=== PATIENT | female | born 1955 | race Caucasian/White ===

== ENCOUNTER 2024-08-25 09:19 | Inpatient (IN) ==
--- NOTE | 2024-07-09 09:57 | PAT Medication Instructions ---
Medication Instructions Date of Service July 09, 2024 Home Medications atorvastatin 80 mg tablet (Lipitor) 80 mg PO HS brimonidine 0.15 % eye drops (Alphagan P) 1 drp OPR Q12H brimonidine 0.15 %-dorzolamide 2 % (PF) eye drops 1 drp ophthalmic (eye) Q12H carvedilol 6.25 mg tablet 6.25 mg PO HS cholecalciferol (vitamin D3) 100 mcg (4,000 unit) capsule 4,000 unit PO QPM clonidine HCl 0.1 mg tablet 0.1 mg PO HS clopidogrel 75 mg tablet (Plavix) 75 mg PO QAM furosemide 40 mg tablet (Lasix) 40 mg PO QAM hydralazine 25 mg tablet 25 mg PO HS insulin lispro 100 unit/mL subcutaneous pen (Humalog KwikPen (U-100) Insulin) 35 unit subcut BID lactulose 20 gram oral packet 20 g PO BID PRN nitroglycerin 0.4 mg sublingual tablet 0.4 mg sublingual UD PRN nitroglycerin 0.4 mg/hr transdermal 24 hour patch 1 patch transdermal DAILY sevelamer carbonate 800 mg tablet 2,400 mg PO TID vitamin B complex 1 cap PO HS Continue as directed nitroglycerin 0.4 mg sublingual tablet 0.4 mg sublingual UD PRN(if needed) ASK your prescriber and surgeon clopidogrel 75 mg tablet (Plavix) 75 mg PO QAM nitroglycerin 0.4 mg/hr transdermal 24 hour patch 1 patch transdermal DAILY (do NOT apply on or near surgical site) sevelamer carbonate 800 mg tablet 2,400 mg PO TID DO NOT take the morning of surgery furosemide 40 mg tablet (Lasix) 40 mg PO QAM insulin lispro 100 unit/mL subcutaneous pen (Humalog KwikPen (U-100) Insulin) 35 unit subcut BID lactulose 20 gram oral packet 20 g PO BID PRN Take morning of surgery With a small sip of water, OTHERWISE NOTHING TO EAT OR DRINK AFTER MIDNIGHT: brimonidine 0.15 % eye drops (Alphagan P) 1 drp OPR Q12H brimonidine 0.15 %-dorzolamide 2 % (PF) eye drops 1 drp ophthalmic (eye) Q12H Take evening before surgery atorvastatin 80 mg tablet (Lipitor) 80 mg PO HS brimonidine 0.15 % eye drops (Alphagan P) 1 drp OPR Q12H brimonidine 0.15 %-dorzolamide 2 % (PF) eye drops 1 drp ophthalmic (eye) Q12H carvedilol 6.25 mg tablet 6.25 mg PO HS cholecalciferol (vitamin D3) 100 mcg (4,000 unit) capsule 4,000 unit PO QPM clonidine HCl 0.1 mg tablet 0.1 mg PO HS hydralazine 25 mg tablet 25 mg PO HS insulin lispro 100 unit/mL subcutaneous pen (Humalog KwikPen (U-100) Insulin) 35 unit subcut BID lactulose 20 gram oral packet 20 g PO BID PRN(if needed) vitamin B complex 1 cap PO HS Other Notes If you have any questions please call us at [phone] or [phone] or [phone] or [phone]
--- NOTE | 2024-07-16 09:45 | Anesthesiology Consultation ---
Date of Service July 16, 2024 Assessment & Plan (1) Encounter for pre-operative examination: - check BSG and BMP STAT am DOS. Fluid orders to assigned anesthesiologist review of BMP DOS. - awaiting: -surgeon's office response regarding surgeon ordered coags and type and screen. -surgeon ordered UA which patient plans to complete at PCP office, [facility]. -surgeon ordered PCP clearance 07/22/24. -surgeon ordered cardiology clearance, date TBD per patient. Optimization form and PAT testing to be faxed to Dr. Fernandez's office regarding needed carotid imaging and detection of systolic murmur. -A1c to be done at dialysis. anesthesia consideration: "shaking" of arms when used to assist standing up. Patient and surgeon's office report plan for cervical spine MRI at some point. Case discussed in detail with Dr. Gautam who advised will not require cervical spine imaging prior to surgery from anesthesia standpoint. To assigned anesthesiologist if patient will need glidescope or different approach to intubation. - ESRD on HD: M, W, F. BMP ordered for DOS. - Carotid bruits were noted on exam vs new systolic murmur radiation. Patient denied dizziness, lightheadedness, extremity weakness, visual changes or headaches. She will need carotid imaging prior to surgery per detailed discussion with Dr. Gautam, will defer if needs echo to cardiology. - surgeon's office was made aware of all above. - limb restrictions: left arm, right upper arm. Patient states BP can be done in right lower arm and IV draws can be in right hand or feet. - nephrology clearance 07/13/24: "...preoperative clearance for lumbar decompression and instrumented fusion surgery at L4-L5...clinically stable from a renal standpoint...giant cell arteritis, unable to afford Actemra and declined assistance...avoidance of hemodynamic instability intraoperatively..." Chart Review Chart Review: Pending: Refer to Additional Notes / Consult section and Patient seen in Pre Admission Testing Teaching & Discussion Pre-Anesthesia Teaching/Discussion Notes: Instructed NPO after midnight before surgery, except medications with 15 cc of water. Medication instructions provided according to the PAT guidelines. History Surgery Operation Date: 07/28/24 11:30 Proposed Procedures p L3-S1 Decompression and Fusion - Dexter Hansen DO Height/Weight Height: 5 ft 2 in Weight: 87.5 kg Allergies Allergy/AdvReac Type Severity Reaction Status Date / Time acetaminophen Allergy Unknown Unknown Verified 07/08/24 13:33 hydrocodone Allergy Unknown Unknown Verified 07/08/24 13:33 naproxen Allergy Unknown Unknown Verified 07/08/24 13:33 Medications Home Medications Medication Instructions Recorded Confirmed Last Taken atorvastatin 80 mg tablet (Lipitor) 80 mg PO HS 07/08/24 07/08/24 Unknown brimonidine 0.15 % eye drops 1 drp OPR Q12H 07/08/24 07/08/24 Unknown (Alphagan P) brimonidine 0.15 %-dorzolamide 2 % 1 drp ophthalmic (eye) Q12H 07/08/24 07/08/24 Unknown (PF) eye drops carvedilol 6.25 mg tablet 6.25 mg PO HS 07/08/24 07/08/24 Unknown cholecalciferol (vitamin D3) 100 4,000 unit PO QPM 07/08/24 07/08/24 Unknown mcg (4,000 unit) capsule clonidine HCl 0.1 mg tablet 0.1 mg PO HS 07/08/24 07/08/24 Unknown clopidogrel 75 mg tablet (Plavix) 75 mg PO QAM 07/08/24 07/08/24 Unknown furosemide 40 mg tablet (Lasix) 40 mg PO QAM 07/08/24 07/08/24 Unknown hydralazine 25 mg tablet 25 mg PO 07/08/24 07/08/24 Unknown insulin lispro 100 unit/mL 35 unit subcut BID 07/08/24 07/08/24 Unknown subcutaneous pen (Humalog KwikPen (U-100) Insulin) lactulose 20 gram oral packet 20 g PO BID PRN Constipation 07/08/24 07/08/24 Unknown nitroglycerin 0.4 mg sublingual 0.4 mg sublingual UD PRN Chest Pain 07/08/24 07/08/24 Unknown tablet nitroglycerin 0.4 mg/hr 1 patch transdermal DAILY 07/08/24 07/08/24 Unknown transdermal 24 hour patch sevelamer carbonate 800 mg tablet 2,400 mg PO TID 07/08/24 07/08/24 Unknown vitamin B complex 1 cap PO HS 07/08/24 07/08/24 Unknown Past Medical History Medical History (Updated 07/16/24 @ 13:20 by Ludy Prajapati PA-C) Arthritis AV (arteriovenous fistula) (2016) left CAD (coronary artery disease) CABG x 2 2006 and 1 stent in 2021 Diabetes mellitus IDDM Difficult intravenous access reports having IV's placed in feet in past ESRD (end stage renal disease) on dialysis HD at [facility] in [place]- - follows with dr. glez, neph in [place] Hemodialysis patient x 3 years, [facility] in [place]- - follows with dr. glez, neph in [place] History of blood transfusion (~1979) miscarriage History of right breast cancer (2021) lumpectomy and xrt Hx of Clostridium difficile infection (2020) treated at [facility] Hx of colonic polyps Hypertension controlled, stable per pt Limb alert care status left- AV Fistula right- right breast lumpectomy and lymph node removal- states ok for BP on lower right arm and wants IV right hand or foot Mitral regurgitation mild Potential difficult intubation on pre-intubation airway assessment limited cervical spine ROM, cervical spine MRI planned by Dr. Hansen/not yet scheduled Spinal stenosis Tremor intermittent upper extremities when using arms to assist stand up-patient states Dr. Hansen plans to order cervical MRI for these symptoms. Denies change or worsening since seeing his clinic. Denies neck pain. Patient denies h/o stroke, seizures, heart failure, or blood clots/DVTs. Exercise / Class Metabolic Activity III < 4 Walking/Shop/Light housework (denies chest discomfort or shortness of breath with usual activities) Past Surgical History Surgical History History of bilateral carpal tunnel release History of lumpectomy of right breast (2021) can only use lower right arm for bp Hx of CABG (2006) [place]- cabg x 2- follows with cardio dr. 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") Hx of heart artery stent (2021) x1- [place]- follows with juan Hx of hysterectomy S/P arteriovenous (AV) fistula creation left arm Past Anesthesia History No Hx of Anesthesia Complications and No Family Hx of Anesthesia Complications History of PONV No Hx of PONV and No Hx of Motion Sickness Social History Smoking Status: Former smoker Do You Dip or Chew Tobacco: No Smoking End Date: 2006 Hx Alcohol Use: No Hx Substance Use: No substance use type: does not use Review of Systems Patient denies chest pain, shortness of breath, dyspnea on exertion, snoring, witnessed apneas, reflux, fever, chills, cough, wheezing, or palpitations. Physical Exam Vital Signs Vitals BP 108/60 right lower arm manual P 66 TEMP 98.0 SP02 100% on RA RESP 18 Physical Patient resting comfortably in chair in no acute distress, alert and oriented, responding appropriately throughout visit Limited cervical extension range of motion without pain TMD 3.5 finger breadths Mallampati Score 3 Dentition: edentulous Lungs: normal respiratory effort. Good air movement, clear throughout to auscultation, no adventitious breath sounds Cardiac: regular rate and rhythm, 2/6 systolic murmur, no gallops or rubs Carotid arteries: bruits bilat Testing Laboratory Results 07/07/24 WBC: 5.1 H/H: 10 PLATELETS: 134,000 SODIUM: 136 POTASSIUM: 4.1 CHLORIDE: 101 CO2: 22 BUN: 60 CREATININE: 9.9 GLUCOSE: 169 Ca: 8.4 Alk phos: 80 ALT: 13 AST: 22 Albumin: 2.8 Patient reported at [facility] that pre-op labs were done at dialysis, however coags and type and screen were not done. Lab results were received after patient left as when we called we were told the results were still pending. A1c was not on surgeon ordered/patient denied recent A1c. She was given a physical order to take to dialysis for next lab draw to include an A1c. She was unable to void and will have UA done at another site. Electrocardiogram Date: 07/16/24 NSR, rate 63 bpm Prolonged QT Chest X-Ray Date: 07/16/24 There is prior CABG. There is moderate cardiomegaly with mild pulmonary vascular congestion. No consolidation or pleural effusion. IMPRESSION: Mild CHF.
[~2024-08-25 09:19] MED LIST: ACETAMINOPHEN 500 MG TAB PO SCH; CeleBREX 200 MG CAP PO SCH
[2024-08-25] MEDS ORDERED: Nursing to Pharmacy Communication SCH (10:15)
[2024-08-25] MEDS: ACETAMINOPHEN 500 MG TAB PO SCH (10:23)
[2024-08-25] MEDS: GABAPENTIN 300 MG CAP PO SCH ×2 (10:24→22:58)
[2024-08-25 10:35] LABS: Anion Gap 8.0 (3-11); Blood Urea Nitrogen 29.0 mg/dl (6-23); Calcium 8.9 mg/dl (8.6-10.3); Carbon Dioxide 29.0 mmol/L (21-32); Chloride 100.0 mmol/L (98-107); Creatinine Clr Calc Pharmacy 9.6 ml/min; Glucose 160.0 mg/dl (70-99(Fasting)); Potassium 4.2 mmol/L (3.5-5.1); Sodium 137.0 mmol/L (136-145)
[2024-08-25] MEDS: SODIUM CHLORIDE 0.9% 500 ML IV SCH (10:44)
[2024-08-25] MEDS: LR 60ML/HR IV SCH ×2 (10:45→22:58)
--- NOTE | 2024-08-25 10:56 | Anesthesiology Consultation ---
Date of Service August 25, 2024 Assessment & Plan (1) Encounter for pre-operative examination: Plan S/p dialysis yesterday. K+ 4.2. MOderate carotid stenosis on left, mild on right. Overall risk acceptable for surgery, however did discuss risk of cardiac, pulmonary and cerebral events being higher due to underlying illnesses. Chart Review Chart Review: Acceptable Risk for Surgery and Pending: Refer to Additional Notes / Consult section Consults Requested none ASA ASA3 Proposed Anesthesia Anesthesia Type: General Risk / Benefits Reviewed With: PT / POA / Parent / Guardian, Accepts Plan and Informed Consent Obtained History Surgery Operation Date: 08/25/24 11:45 Proposed Procedures p L3-S1 Decompression and Fusion, Spinal Cord Monitoring - Dexter Hansen, Height/Weight Height: 5 ft 2 in Weight: 83.2 kg Allergies Allergy/AdvReac Type Severity Reaction Status Date / Time hydrocodone Allergy Unknown Nausea Verified 08/25/24 10:12 naproxen Allergy Unknown Nausea Verified 08/25/24 10:12 gabapentin AdvReac Intermediate Nausea Verified 08/25/24 10:12 Medications Home Medications Medication Instructions Recorded Confirmed Last Taken atorvastatin 80 mg tablet (Lipitor) 80 mg PO 07/08/24 08/25/24 08/24/24 21:00 brimonidine 0.15 % eye drops 1 drp OPR Q12H 07/08/24 08/25/24 08/23/24 21:00 (Alphagan P) brimonidine 0.15 %-dorzolamide 2 % 1 drp ophthalmic (eye) Q12H 07/08/24 08/25/24 08/24/24 21:00 (PF) eye drops carvedilol 6.25 mg tablet 6.25 mg PO 07/08/24 08/25/24 08/24/24 21:00 cholecalciferol (vitamin D3) 100 4,000 unit PO QPM 07/08/24 08/25/24 08/18/24 mcg (4,000 unit) capsule clonidine HCl 0.1 mg tablet 0.1 mg PO 07/08/24 08/25/24 08/24/24 21:00 clopidogrel 75 mg tablet (Plavix) 75 mg PO QA 07/08/24 08/25/24 08/23/24 12:00 furosemide 40 mg tablet (Lasix) 40 mg PO QA 07/08/24 08/25/24 08/18/24 hydralazine 25 mg tablet 25 mg PO HS 07/08/24 08/25/24 08/24/24 21:00 insulin lispro 100 unit/mL 35 unit subcut BID 07/08/24 08/25/24 08/24/24 07:00 subcutaneous pen (Humalog KwikPen (U-100) Insulin) lactulose 20 gram oral packet 20 g PO BID PRN Constipation 07/08/24 08/25/24 Unknown nitroglycerin 0.4 mg sublingual 0.4 mg sublingual UD PRN Chest Pain 07/08/24 08/25/24 Unknown tablet nitroglycerin 0.4 mg/hr 1 patch transdermal DAILY 07/08/24 08/25/24 08/25/24 04:00 transdermal 24 hour patch sevelamer carbonate 800 mg tablet 2,400 mg PO TID 07/08/24 08/25/24 08/18/24 vitamin B complex 1 cap PO HS 07/08/24 08/25/24 08/18/24 Active Medications Generic Name Dose Route Start Last Admin Trade Name Freq PRN Reason Stop Dose Admin Acetaminophen 1,000 mg 08/25/24 06:00 08/25/24 10:23 Acetaminophen 500 Mg Tab PO 08/25/24 18:00 1,000 mg PREOP MICKY Administration Gabapentin 300 mg 08/25/24 06:00 08/25/24 10:24 Gabapentin 300 Mg Cap PO 09/24/24 05:59 Not Given PREOP MICKY Lactated Ringer's 1,000 mls @ 60 mls/hr 08/25/24 06:00 08/25/24 10:45 Lr IV 08/25/24 22:39 Not Given .[id number] MICKY Sodium Chloride 500 mls @ 15 mls/hr 08/25/24 10:45 08/25/24 10:44 Nss IV 08/26/24 10:44 15 mls/hr .Q24H MICKY Administration Miscellaneous Information 1 each 08/24/24 13:30 08/25/24 10:24 Allergy Noted To Ordered Medication N/A 09/23/24 13:29 Not Given QSHIFT MICKY NPO Date Last Intake of Fluids: 08/25/24 Time Last Intake of Fluids: 07:00 Date Last Intake of Solids: 08/24/24 Time Last Intake of Solids: 12:00 Past Medical History Medical History Aortic stenosis mild Potential difficult intubation on pre-intubation airway assessment limited cervical spine ROM, cervical spine MRI planned by Dr. Hansen/not yet scheduled Mitral regurgitation mild-moderate History of blood transfusion (~1979) miscarriage Tremor intermittent upper extremities when using arms to assist stand up-patient states Dr. Hansen plans to order cervical MRI for these symptoms. Denies change or worsening since seeing his clinic. Denies neck pain. CAD (coronary artery disease) CABG x 2 2006 and 1 stent in 2021 Hx of Clostridium difficile infection (2020) treated at [facility] Difficult intravenous access reports having IV's placed in feet in past Arthritis Spinal stenosis ESRD (end stage renal disease) on dialysis HD at [facility] in [place]- - follows with dr. glez, neph in [place] Limb alert care status left- AV Fistula right- right breast lumpectomy and lymph node removal- states ok for BP on lower right arm and wants IV right hand or foot History of right breast cancer (2021) lumpectomy and xrt Hypertension controlled, stable per pt Diabetes mellitus IDDM Hx of colonic polyps Hemodialysis patient x 3 years, [facility] in [facility] - follows with dr. 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 martinez- ~ (1 month) Past Anesthesia History No Hx of Anesthesia Complications and No Family Hx of Anesthesia Complications History of PONV No Hx of PONV and No Hx of Motion Sickness Social History Smoking Status: Former smoker Do You Dip or Chew Tobacco: No Smoking End Date: 2006 Hx Alcohol Use: No Hx Substance Use: No substance use type: does not use Physical Exam Vital Signs Last Vital Signs Temp 36.8 C 08/25/24 09:53 Pulse 63 08/25/24 09:53 Resp 20 08/25/24 09:53 BP 163/55 H 08/25/24 09:53 Pulse Ox 98 08/25/24 09:53 O2 Del Method Room Air 08/25/24 09:53 Constitutional + obese; no acute distress ENMT Mouth: + dentures Mallampati Class: II Neck normal visual inspection Respiratory normal respiratory effort Auscultation: lungs clear to auscultation bilaterally Cardiovascular Rate/Rhythm: regular rate and regular rhythm Neurologic moves all extremities Psychiatric Orientation: alert and oriented x 3 Testing Laboratory Results 08/25/24 10:00 Blood Type O Positive 08/25/24 10:00 Antibody Screen NEGATIVE 08/25/24 10:00 08/25/24 09:43 POC Glucose 147 H Electrocardiogram Date: 07/16/24 NSR, rate 63 bpm Prolonged QT Chest X-Ray Date: 07/16/24 There is prior CABG. There is moderate cardiomegaly with mild pulmonary vascular congestion. No consolidation or pleural effusion. IMPRESSION: Mild CHF. Echocardiogram Date: 07/23/24 EF: 50 Valvular Disease: + (mild) and + MR (mod)
[2024-08-25] MEDS ORDERED: HYDROmorphone INJ 2 MG/ML SYR/VIAL IV PRN (11:02)
[2024-08-25] MEDS ORDERED: ATROPINE SULFATE 0.1 MG/ML 10ML SYR IV PRN (11:02)
[2024-08-25] MEDS ORDERED: LIDOCAINE 2% 2 ML VIAL/AMP(20MG/ML) INFIL ONE (11:14)
[2024-08-25] MEDS ORDERED: PROPOFOL IV EMULSION 10 MG/ML 20 ML VIAL IV ONE (11:14)
[2024-08-25] MEDS ORDERED: ROCURONIUM BROMIDE 10 MG/ML 5 ML VIAL IV ONE ×2 (11:14→13:56)
[2024-08-25] MEDS ORDERED: PHENYLEPHRINE HCL 10 MG/ML VIAL ONE (11:14)
[2024-08-25] MEDS ORDERED: ONDANSETRON INJ 2 MG/ML 2 ML VIAL ONE (11:14)
[2024-08-25] MEDS ORDERED: DEXAMETHASONE SOD INJ 4 MG/ML VIAL ONE (11:14)
--- NOTE | 2024-08-25 12:09 | History & Physical Report ---
Date of Service August 25, 2024 Assessment & Plan (1) Two-level lumbosacral spondylosis with radiculopathy: Plan: L3-S1 decompression fusion History of Present Illness Chief Complaint: Back and bilateral leg pain Primary Care Provider: NO PCP This is a 68-year-old female that presents with chronic persistent back and bilateral leg pain with weakness. After failing course of nonoperative care she is here for surgical intervention. Allergies Allergy/AdvReac Type Severity Reaction Status Date / Time hydrocodone Allergy Unknown Nausea Verified 08/25/24 10:12 naproxen Allergy Unknown Nausea Verified 08/25/24 10:12 gabapentin AdvReac Intermediate Nausea Verified 08/25/24 10:12 Home Medications Medication Instructions Recorded Confirmed Type atorvastatin 80 mg tablet (Lipitor) 80 mg PO HS 07/08/24 08/25/24 History brimonidine 0.15 % eye drops 1 drp OPR Q12H 07/08/24 08/25/24 History (Alphagan P) brimonidine 0.15 %-dorzolamide 2 % 1 drp ophthalmic (eye) Q12H 07/08/24 08/25/24 History (PF) eye drops carvedilol 6.25 mg tablet 6.25 mg PO HS 07/08/24 08/25/24 History cholecalciferol (vitamin D3) 100 4,000 unit PO QPM 07/08/24 08/25/24 History mcg (4,000 unit) capsule clonidine HCl 0.1 mg tablet 0.1 mg PO HS 07/08/24 08/25/24 History clopidogrel 75 mg tablet (Plavix) 75 mg PO QAM 07/08/24 08/25/24 History furosemide 40 mg tablet (Lasix) 40 mg PO QAM 07/08/24 08/25/24 History hydralazine 25 mg tablet 25 mg PO HS 07/08/24 08/25/24 History insulin lispro 100 unit/mL 35 unit subcut BID 07/08/24 08/25/24 History subcutaneous pen (Humalog KwikPen (U-100) Insulin) lactulose 20 gram oral packet 20 g PO BID PRN Constipation 07/08/24 08/25/24 History nitroglycerin 0.4 mg sublingual 0.4 mg sublingual UD PRN Chest Pain 07/08/24 08/25/24 History tablet nitroglycerin 0.4 mg/hr 1 patch transdermal DAILY 07/08/24 08/25/24 History transdermal 24 hour patch sevelamer carbonate 800 mg tablet 2,400 mg PO TID 07/08/24 08/25/24 History vitamin B complex 1 cap PO HS 07/08/24 08/25/24 History Past Med/Surg History Problem List (Updated 08/25/24 @ 12:09 by Dexter Hansen, ) Two-level lumbosacral spondylosis with radiculopathy Medical History (Updated 08/25/24 @ 12:09 by Dexter Hansen, ) Aortic stenosis mild Potential difficult intubation on pre-intubation airway assessment limited cervical spine ROM, cervical spine MRI planned by Dr. Hansen/not yet scheduled Mitral regurgitation mild-moderate History of blood transfusion (~1979) miscarriage Tremor intermittent upper extremities when using arms to assist stand up-patient states Dr. Hansen plans to order cervical MRI for these symptoms. Denies change or worsening since seeing his clinic. Denies neck pain. CAD (coronary artery disease) CABG x 2 2006 and 1 stent in 2021 Hx of Clostridium difficile infection (2020) treated at [facility] Difficult intravenous access reports having IV's placed in feet in past Arthritis Spinal stenosis ESRD (end stage renal disease) on dialysis HD at [facility] in [place]- - follows with dr. glez neph in [place] Limb alert care status left- AV Fistula right- right breast lumpectomy and lymph node removal- states ok for BP on lower right arm and wants IV right hand or foot History of right breast cancer (2021) lumpectomy and xrt Hypertension controlled, stable per pt Diabetes mellitus IDDM Hx of colonic polyps Hemodialysis patient x 3 years, [facility] in [place]- - follows with dr. 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 martinez- ~ (1 month) Social History Smoking Status: Former smoker Tobacco Type: Cigarettes Smoking End Date: 2006; Second Hand Exposure: No; Do You Dip or Chew Tobacco: No; Tobacco Cessation Education Requested by Patient: No Hx Alcohol Use: No Hx Substance Use: No Preferred Language: [place] Communication Ability: Effective Systems Security Analyst Required: No Beliefs That Will Affect Care: None Current Living Situation: Spouse Other Information That Helps Us Care for You: No Feels Safe at Home: Yes Safety Concerns: Feels Safe At This Time Assistive Devices: Glasses Physical Exam Physical Exam: Patient is alert and oriented Heart regular rhythm Lungs clear Results & Data Results & Data Vital Signs (Past 12 Hours) Vital Signs Temp Pulse Resp BP Pulse Ox O2 Del Method 08/25/24 09:53 36.8 C 63 20 163/55 H 98 Room Air
--- NOTE | 2024-08-25 12:09 | History & Physical Bridge Note ---
Date of Service August 25, 2024 History & Physical Bridge Note I have examined the patient, reviewed the History & Physical and in the interval since the performance of the History & Physical I have noted the following changes of clinical significance: no changes noted
[2024-08-25] MEDS ORDERED: SUCCINYLCHOLINE CHLORIDE 20 MG/ML 10 ML VIAL IV ONE (13:04)
[2024-08-25] MEDS: BUPIVACAINE/EPINEPHRINE 0.25% 1:200,000 30 ML VIAL ONE (14:16)
[2024-08-25] MEDS: SURGICEL ABSORB HEMOSTAT 2IN X 14IN TOP ONE (14:18)
[2024-08-25] MEDS ORDERED: ALBUMIN HUMAN 5% 12.5 GM/250 ML VIAL IV ONE (14:39)
[2024-08-25] MEDS ORDERED: NEOSTIGMINE METHYLSULFATE 1 MG/ML 10ML VIAL ONE (15:07)
[2024-08-25] MEDS ORDERED: GLYCOPYRROLATE 0.2 MG/ML VIAL ONE (15:07)
[2024-08-25] MEDS: FLOSEAL HEMOSTATIC MATRIX 10ML TOP ONE (15:11)
[2024-08-25] MEDS: ceFAZolin 330 MG/ML 1 GM VIAL ONE (15:11)
--- NOTE | 2024-08-25 15:16 | Fluoroscopy Report ---
FL lumbar spine 2-3V CLINICAL HISTORY: L3-S1 DECOMPRESSION AND FUSION COMPARISON STUDY: None FLUOROSCOPY TIME: 24 seconds FLUOROSCOPY IMAGES: 3 EXPOSURE DOSE: 17 mGy FINDINGS: Fluoroscopy was provided for lumbar metallic fusion. IMPRESSION: Intraoperative fluoroscopy. ACT 112: Negative or not required by law. Electronically signed by: West Baeza M.D. 08/25/2024 3:15 PM
--- NOTE | 2024-08-25 15:27 | Operative Report ---
Post Operative Report Pre & Post Diagnosis Operation Date: 08/25/24 11:45 Pre-Op Diagnosis: #1 lumbar spondylosis with radiculopathy. #2 lumbar spondylolisthesis with radiculopathy. #3 lumbar spinal stenosis Postop diagnosis: Same I identified the patient and participated in the time-out.: Yes Procedure Operation Date: 08/25/24 11:45 Actual Procedures #1 lumbar decompression with bilateral medial facetectomies and foraminotomies L2-L3, L3-L4 L4-5. #2 posterior spinal fusion L3-L5. #3 placement posterior instrumentation L3-L5. #4 interbody fusion L3-L4 L4-L5. 5 placement Spira 13 x 26 mm at L3-L4 and 12 x 26 mm at L4-L5. #6 placement of locally harvested morselized autograft in the posterior gutters. #7 placement infuse collagen sponge, with Koros in the posterior lateral gutters and os design interbody space. #8 application of versa wrap of the exposed dura. Surgeon Dexter Hansen, Email Production Specialist Adalgisa Callahan Estimated Blood Loss 400 Findings Consistent with Post-Op Diagnosis Specimens None Indications This is a 68-year-old female presents publish diagnosis after failing course of nonoperative care she is here for surgical invention. Description of Procedure Patient was met with identified informed consent obtained. Patient was then taken to the operative suite underwent intubation placed in a prone position on the Jef table on top of the Roshan frame. All bony prominences well-padded eyes inspected to ensure no external pressure placed upon them. This point the lumbar spine was prepped and draped in normal sterile fashion. Sharp dissection with the assistance of Bovie cautery was performed down to and exposing the lamina and transverse processes of L3-L4-L5 bilaterally. From a caudal cephalad fashion complete laminectomy of L4 was performed including bilateral medial facetectomies and foraminotomies addressing severe spinal stenosis. This followed by complete laminectomy of L3 with bilateral medial facetectomies and foraminotomies addressing severe neural compression and lastly partial laminectomy of L2 with subarticular decompression to address all stenosis. Pedicle screws then placed at L3-L4-L5 bilaterally with assistance of fluoroscopy in the process anahy placed. By way of transforaminal approach on the left complete discectomy of L4-L5 was performed endplates curetted to subcortical bleeding bone and a 12 x 26 mm spiral cage tapped in position. Then proceeded to L3-L4 and by way of transforaminal approach on the left complete discectomy was performed endplates guided to subcortically bone and a 13 x 26 mm spiral cage tapped into position. All cages were packed with os design bone graft. The rods were then compressed locked in final position bilaterally. The transverse processes of L3-L4-L5 burred to subcortical the bone. Infuse collagen sponge, with Koros and local autograft placed in the posterior gutters. Versa wrap placed of exposed dura. 15 round SHIRA drain inserted. The incision was then closed with 1 Vicryl the fascia 2-0 Vicryl subcutaneously and 4 Monocryl for final skin closure. Steri-Strips sterile dressing placed. Patient waken taken to PACU in stable condition. Please note Adalgisa Callahan was present at the entire procedure involved in patient positioning complex portion of the surgery and final skin closure. Im ordering 10 grams of Collagen Powder (HCPCS A6010 Primary Dressing) and 10 bordered super absorbent (HCPCS A6196 Secondary Dressing) to treat an incision wound that was caused by a spine procedure. The incision is approximately 2 cm(W) x 2 cm(L) down to the spinal column and epidural space 2 cm (D) in size and is a full thickness wound showing no signs of infection. Collagen comes in 1 gram packets so 10 packets were ordered. Given the size of the wound, with moderate exudate I chose to order a 10 day supply. The patient will be provided instructions for proper application of the collagen wound kit. The patient will be asked to apply the collagen powder daily and then cover it with sterile dressings dispensed. Collagen was selected as I expect the collagen to attract monocytes and fibroblasts, act as a sacrificial substrate for MMPs, and ultimately proved a matrix for tissue and vessel growth. The collagen will act as a primary dressing in this scenario. It is medically necessary for proper healing of these wounds to improve bioavailability and contact with each wound surface, this is also to help prevent infection of wounds and promote healing ultimately leading to a better healing outcome and limit the risk of infection. I attest to the content of the Intraoperative Record and any orders documented therein. Any exceptions are noted below.
[2024-08-25] MEDS: ONDANSETRON INJ 2 MG/ML 2 ML VIAL IV PRN (15:50)
[2024-08-25] MEDS: HYDROmorphone INJ 1 MG/ML SYRINGE IV PRN (15:58)
[2024-08-25] MEDS: LABETALOL HCL IV 5 MG/ML 20ML IV STA (16:35)
[2024-08-25] MEDS: LABETALOL HCL IV 5 MG/ML 20ML IV ONE (16:43)
--- NOTE | 2024-08-25 16:46 | Anesthesiology Progress Note ---
Date of Service August 25, 2024 Anesthesia Post Procedure Vital Signs Vital Signs: Temp Pulse Pulse Pulse Resp BP BP 08/25/24 16:35 71 219/62 H 08/25/24 16:15 64 14 185/56 H 08/25/24 16:05 77 18 212/72 H 08/25/24 15:55 85 23 229/69 H 08/25/24 15:45 79 14 162/54 H 08/25/24 15:36 36 C L 65 14 179/54 H 08/25/24 09:53 36.8 C 63 20 163/55 H BP Pulse Ox O2 Del Method O2 Flow Rate 08/25/24 16:35 08/25/24 16:15 180/37 H 99 Nasal Cannula 5 08/25/24 16:05 217/58 H 99 Nasal Cannula 5 08/25/24 15:55 229/56 H 100 Nasal Cannula 5 08/25/24 15:45 172/43 H 100 Oxymask 10 08/25/24 15:36 100 Oxymask 10 08/25/24 09:53 98 Room Air Pain Intensity Bilateral Lower Back: Pain Intensity: 8 Back: Pain Intensity: 4 Transfer of Care Handoff Completed per policy Notes Mental Status: alert / awake / arousable and participated in evaluation Patient Amnestic to Procedure: Yes Nausea / Vomiting: adequately controlled Pain: adequately controlled Airway Patency, RR, SpO2: stable & adequate BP & HR: stable & adequate Hydration State: stable & adequate Anesthetic Complications: no major complications apparent and Pt Satisfied with anesthetic care
[2024-08-25] MEDS ORDERED: PROMETHAZINE 12.5 MG/50.5 ML BAG IV PRN (17:47)
[2024-08-25] MEDS ORDERED: LORazepam 0.5 MG TAB PO PRN (17:47)
[2024-08-25] MEDS ORDERED: ACETAMINOPHEN 1,000 MG/100 ML VIAL IV PRN (17:47)
[2024-08-25] MEDS ORDERED: ONDANSETRON 4 MG OD TAB PO PRN (17:47)
[2024-08-25] MEDS ORDERED: PHARMACY GLYCEMIC MGMT CONSULT PRN (17:47)
[2024-08-25] MEDS ORDERED: ONDANSETRON INJ 2 MG/ML 2 ML VIAL IV PRN (17:47)
[2024-08-25] MEDS ORDERED: FAMOTIDINE 20 MG TAB PO PRN (17:47)
[2024-08-25] MEDS ORDERED: NALOXONE HCL 0.4 MG/1 ML VIAL/CARP IV PRN (17:47)
[2024-08-25] MEDS ORDERED: DO NOT ADMINISTER FLU VACCINE PRN (17:47)
[2024-08-25] MEDS ORDERED: ALUMINUM/MAGNESIUM SUSP 30 ML UDC PO PRN (17:47)
[2024-08-25] MEDS ORDERED: MAGNESIUM HYDROXIDE SUSP 30 ML UDC PO PRN (17:47)
[2024-08-25] MEDS ORDERED: DO NOT ADMINISTER PNEUMOCOCCAL VACCINE PRN (17:47)
[2024-08-25] MEDS ORDERED: METOCLOPRAMIDE HCL INJ 5 MG/ML 2 ML VIAL IV PRN (17:47)
[2024-08-25] MEDS ORDERED: NITROGLYCERIN SL 0.4 MG/TAB TAB SL PRN (17:47)
[2024-08-25] MEDS ORDERED: HYDROmorphone INJ 1 MG/ML SYRINGE IV PRN (17:47)
[2024-08-25] MEDS ORDERED: SOD PHOSPHATE/SOD BIPHOSPHATE ENEMA 132 ML BTL PR PRN (17:47)
[2024-08-25] MEDS ORDERED: GLUCAGON FOR INJ 1 MG VIAL SQ PRN (18:19)
[2024-08-25] MEDS ORDERED: GLUCOSE 10 TAB/TUBE PO PRN (18:19)
[2024-08-25] MEDS ORDERED: DEXTROSE 50% 50 ML SYRINGE IV PRN (18:19)
[2024-08-25] MEDS ORDERED: GLUCOSE 40% GEL 15 GM TUBE PO PRN (18:19)
[2024-08-25] MEDS ORDERED: CARBOHYDRATES FOR HYPOGLYCEMIA PO PRN (18:19)
--- NOTE | 2024-08-25 18:32 | Consultation ---
Date of Consultation August 25, 2024 Assessment & Plan (1) Two-level lumbosacral spondylosis with radiculopathy: (2) CAD (coronary artery disease): (3) ESRD (end stage renal disease) on dialysis: (4) Diabetes mellitus: Plan This is a 68-year-old female who has a significant medical history of ESRD on HD Saturday, CAD s/p CABG, T2DM, HTN, hx of breast cancer in remission and cirrhosis who presents for elective lumbar procedure by Dr. Hansen. # 2 level lumbar sacral spondylosis with radiculopathy status post lumbar decompression fusion L3-S1, POD #0 EBL 400 mL pain/wound management per Ortho encourage incentive spirometry monitor hemoglobin, preop 10.2, likely chronic anemia in setting of end-stage renal disease Pt wheel chair bound prior to procedure, since May 10, Goal is to walk again, may need rehab #ESRD on HD MWF consult nephrology for HD needs, last tx was yesterday 08/[address] Calvin, Renal in [place] for HD needs #CAD hx of CABG in 2006, hx of LAD SCOTTIE x [address] Fernandez in [place] on ASA, Statin, Plavix, Lipitor, coreg ASA, Plavix currently on hold - will need to discuss with Dr. Hansen in a.m. if able to at least resume ASA #HTN chronic, stable on hydralazine, coreg, lasix, clonidine and nitropatch monitor volume status #T2DM pt on higher doses of insulin at home, last a1c 7.7 on 03/03/24, will check a1c in a.m. pharmacy consulted for glycemic management #B/L Carotid artery stenosis: continue asa, plavix, cards following #DVT ppx: per primary FULL CODE PCP: Dr. Simone Hawkins, [facility] Dispo: per primary Pt was seen and examined in collaboration with Dr. Zuluaga, please see addendum Thank you for this consultation. We will follow the patient with you during their hospital stay. You can reach a member of the [facility] Hospitalist Team 03/09 via hospitalist role on tiger text. I spent a total of 56 minutes coordinating, documenting and providing care for this patient excluding time spent in the performance of separately billed services or time spent by another provider/QHP. Supervising Physician Co-Signing Physician Notes Attending addendum: The patient was seen and examined in medical floor in presence of the family members She has been feeling much better and denies any significant symptoms except nausea Denies any chest pain, palpitation or shortness of breath No abdominal pain and denies any numbness and or tingling involving the extremities On examination Sitting on the bed without any acute distress Looked pale but hemodynamically stable Chestclear to auscultate bilaterally HeartS1-S2, regular with 2/6 ESM over precordium Abdomenbenign Extremitiestrace edema bilaterally CNSalert, awake and oriented x 3 Heart labs and imaging studies noted Has had echo and EKG prior to surgery which were unremarkable Status post L3-L5 decompression and fusion on 08/25/2024 Significant medical history of end-stage renal disease on hemodialysis, diabetes and other medical conditions as mentioned above Will get nephrology involved for dialysis to continue Sliding scale insulin coverage and other medications will be continued for chronic conditions as mentioned above Will monitor her labs while in the hospital Agree with assessment plan as outlined above by Yamilex Toledo PA-C and take the full responsibility of care in the hospital Dr Qing Zuluaga History of Present Illness Requesting Physician: Dr. Hansen Reason for Consultation: Post op medical management Attending Physician: Dexter Hansen, History of Present Illness This is a 68-year-old female who has a significant medical history of ESRD on HD Saturday, CAD s/p CABG, T2DM, HTN and cirrhosis who presents for elective lumbar procedure by Dr. Hansen. History obtained from patient, multiple family members at bedside as well as chart review. at bedside states that patient has been wheelchair-bound since May 10, 2024 for which they sought care with Dr. Hansen. Patient was found to have lumbar spinal stenosis and underwent L3-S1 decompression and fusion. She has most of her care in [place], [place]. She underwent CABG in 2006 and is on ASA and Plavix. She has had 2 LAD stents placed in 2021. She goes to HD at [facility] and has been on for 3 years. She still makes urine. Her last session was yesterday and she completed a full session. She still makes urine. Post operatively she has some incisional pain. Pain currently 6/10. Denies radicular sx. Denies f/c/s, chest pain, sob, vomiting or diarrhea. She currently feels nauseated. Allergies Allergy/AdvReac Type Severity Reaction Status Date / Time hydrocodone Allergy Unknown Nausea Verified 08/25/24 10:12 naproxen Allergy Unknown Nausea Verified 08/25/24 10:12 gabapentin AdvReac Intermediate Nausea Verified 08/25/24 10:12 Home Medications Medication Instructions Recorded Confirmed Type atorvastatin 80 mg tablet (Lipitor) 80 mg PO HS 07/08/24 08/25/24 History brimonidine 0.15 % eye drops 1 drp OPR Q12H 07/08/24 08/25/24 History (Alphagan P) brimonidine 0.15 %-dorzolamide 2 % 1 drp ophthalmic (eye) Q12H 07/08/24 08/25/24 History (PF) eye drops carvedilol 6.25 mg tablet 6.25 mg PO HS 07/08/24 08/25/24 History cholecalciferol (vitamin D3) 100 4,000 unit PO QPM 07/08/24 08/25/24 History mcg (4,000 unit) capsule clonidine HCl 0.1 mg tablet 0.1 mg PO HS 07/08/24 08/25/24 History clopidogrel 75 mg tablet (Plavix) 75 mg PO QAM 07/08/24 08/25/24 History furosemide 40 mg tablet (Lasix) 40 mg PO QAM 07/08/24 08/25/24 History hydralazine 25 mg tablet 25 mg PO HS 07/08/24 08/25/24 History insulin lispro 100 unit/mL 35 unit subcut BID 07/08/24 08/25/24 History subcutaneous pen (Humalog KwikPen (U-100) Insulin) lactulose 20 gram oral packet 20 g PO BID PRN Constipation 07/08/24 08/25/24 History nitroglycerin 0.4 mg sublingual 0.4 mg sublingual UD PRN Chest Pain 07/08/24 08/25/24 History tablet nitroglycerin 0.4 mg/hr 1 patch transdermal DAILY 07/08/24 08/25/24 History transdermal 24 hour patch sevelamer carbonate 800 mg tablet 2,400 mg PO TID 07/08/24 08/25/24 History vitamin B complex 1 cap PO HS 07/08/24 08/25/24 History aspirin 81 mg tablet 81 mg PO DAILY 08/25/24 08/25/24 History Patient History Medical History Aortic stenosis mild Potential difficult intubation on pre-intubation airway assessment limited cervical spine ROM, cervical spine MRI planned by Dr. Hansen/not yet scheduled Mitral regurgitation mild-moderate History of blood transfusion (~1979) miscarriage Tremor intermittent upper extremities when using arms to assist stand up-patient states Dr. Hansen plans to order cervical MRI for these symptoms. Denies change or worsening since seeing his clinic. Denies neck pain. CAD (coronary artery disease) CABG x 2 2006 and 1 stent in 2021 Hx of Clostridium difficile infection (2020) treated at [facility] Difficult intravenous access reports having IV's placed in feet in past Arthritis Spinal stenosis ESRD (end stage renal disease) on dialysis HD at Renal in [place]- - follows with dr. calvin, neph in [place] Limb alert care status left- AV Fistula right- right breast lumpectomy and lymph node removal- states ok for BP on lower right arm and wants IV right hand or foot History of right breast cancer (2021) lumpectomy and xrt Hypertension controlled, stable per pt Diabetes mellitus IDDM Hx of colonic polyps Hemodialysis patient x 3 years, Renal in [facility] - follows with dr. 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 fernandez- ~ (1 month) Social History Smoking Status: Former smoker Tobacco Type: Cigarettes Smoking End Date: 2006; Second Hand Exposure: No; Do You Dip or Chew Tobacco: No; Tobacco Cessation Education Requested by Patient: No Hx Alcohol Use: No Hx Substance Use: No Preferred Language: Afghan Communication Ability: Effective Vegetable Ii Farmworker Required: No Beliefs That Will Affect Care: None Current Living Situation: Spouse Other Information That Helps Us Care for You: No Feels Safe at Home: Yes Safety Concerns: Feels Safe At This Time Assistive Devices: Glasses Review of Systems Review of Systems: All systems reviewed & are unremarkable except as noted in HPI & below Physical Exam Physical Exam: Gen: WD/WN, NAD, A&O x3. drowsy. HEENT: Normocephalic, atraumatic, conjunctivae moist, sclerae anicteric, mucous membranes moist. Lung: Clear to Auscultation bilaterally, no wheezes/rales/rhonchi Heart: Regular rate, regular rhythm Abdomen: Soft, NT, ND +BS x 4 Extremities: No edema, LUE fistula Skin: Warm, no rash, negative turgor. : +marley cath draining yellow urine Results & Data Vital Signs (Past 12 Hours) Vital Signs Temp Pulse Pulse Pulse Resp BP BP 08/25/24 18:29 35.4 C L 57 L 14 130/68 08/25/24 18:01 35.7 C L 60 136/69 08/25/24 17:38 36.4 C L 61 16 181/65 H 08/25/24 17:30 08/25/24 17:05 36.5 C 55 L 15 166/46 H 08/25/24 16:55 60 16 164/47 H 08/25/24 16:45 53 L 16 160/46 H 08/25/24 16:35 71 15 154/45 H 08/25/24 16:35 71 219/62 H 08/25/24 16:25 68 16 198/55 H 08/25/24 16:15 64 14 185/56 H 08/25/24 16:05 77 18 212/72 H 08/25/24 15:55 85 23 229/69 H 08/25/24 15:45 79 14 162/54 H 08/25/24 15:36 36 C L 65 14 179/54 H 08/25/24 09:53 36.8 C 63 20 163/55 H BP Pulse Ox O2 Del Method O2 Flow Rate 08/25/24 18:29 100 Nasal Cannula 3 08/25/24 18:01 100 Nasal Cannula 3 08/25/24 17:38 100 Nasal Cannula 3 08/25/24 17:30 Nasal Cannula 3 08/25/24 17:05 100 Nasal Cannula 4 08/25/24 16:55 100 Nasal Cannula 4 08/25/24 16:45 100 Nasal Cannula 4 08/25/24 16:35 100 Nasal Cannula 4 08/25/24 16:35 08/25/24 16:25 99 Nasal Cannula 4 08/25/24 16:15 180/37 H 99 Nasal Cannula 5 08/25/24 16:05 217/58 H 99 Nasal Cannula 5 08/25/24 15:55 229/56 H 100 Nasal Cannula 5 08/25/24 15:45 172/43 H 100 Oxymask 10 08/25/24 15:36 100 Oxymask 10 08/25/24 09:53 98 Room Air Laboratory Results I have independently reviewed and interpreted patient's admitting labs including BMP, PT/INR. PTT, cov2 BMP 08/25/24 10:00 Sodium 137 Potassium 4.2 Chloride 100 Carbon Dioxide 29 BUN 29 H Creatinine 5.52 H* Glucose 160 H Calcium 8.9 Diagnostic Findings Lumbar Spine X-Ray 08/25/24 11:45 FL lumbar spine 2-3V CLINICAL HISTORY: L3-S1 DECOMPRESSION AND FUSION COMPARISON STUDY: None FLUOROSCOPY TIME: 24 seconds FLUOROSCOPY IMAGES: 3 EXPOSURE DOSE: 17 mGy FINDINGS: Fluoroscopy was provided for lumbar metallic fusion. IMPRESSION: Intraoperative fluoroscopy. ACT 112: Negative or not required by law. Electronically signed by: West Baeza M.D. 08/25/2024 3:15 PM Medications Administered Current Inpatient Medications Acetaminophen (Acetaminophen 500 Mg Tab) 1,000 mg PO Q8H PRN PRN Reason: MILD Pain (1,2,3) & Pre PT Stop: 09/24/24 17:46 Al Hydrox/Mg Hydrox/Simethicone (Aluminum/Magnesium Susp 30 Ml Udc) 30 ml PO Q6H PRN PRN Reason: Dyspepsia Stop: 09/24/24 17:46 Atorvastatin Calcium (Atorvastatin 40 Mg Tab) 80 mg PO HS MICKY Stop: 09/24/24 20:59 Bisacodyl (Bisacodyl 10 Mg Supp) 10 mg W[place] DAILY PRN PRN Reason: Constipation Stop: 09/24/24 17:46 Brimonidine Tartrate (Brimonidine Tartrate-P 0.15% 5 Ml Btl) 1 drops OPR Q12 MICKY Stop: 09/24/24 20:59 Carvedilol (Carvedilol 6.25 Mg Tab) 6.25 mg PO HS MICKY Stop: 09/24/24 20:59 Clonidine HCl (Clonidine Hcl 0.1 Mg Tab) 0.1 mg PO HS MICKY Stop: 09/24/24 20:59 Dextrose (Dextrose 50% 50 Ml Syringe) 25 - 50 ml IV UD PRN; Protocol PRN Reason: Hypoglycemia Protocol Stop: 09/24/24 18:18 Diphenhydramine HCl (Diphenhydramine Capsule 25 Mg Cap) 25 mg PO Q6H PRN PRN Reason: Allergic Rhinitis/Insomnia Stop: 09/24/24 17:46 Dorzolamide HCl (Dorzolamide Hcl 2% Oph Soln 10 Ml Btl) 1 drops OPR Q12 MICKY Stop: 09/24/24 20:59 Famotidine (Famotidine 20 Mg Tab) 20 mg PO Q12H PRN PRN Reason: Dyspepsia Stop: 09/24/24 17:46 Furosemide (Furosemide 40 Mg Tab) 40 mg PO QAM MICKY Stop: 09/25/24 08:59 Gabapentin (Gabapentin 300 Mg Cap) 300 mg PO PREOP MICKY Stop: 09/24/24 05:59 Last Admin: 08/25/24 10:24 Dose: Not Given Glucagon (Glucagon For Inj 1 Mg Vial) 1 mg SQ UD PRN; Protocol PRN Reason: Hypoglycemia Protocol Stop: 09/24/24 18:18 Glucose (Glucose 40% Gel 15 Gm Tube) 15 - 30 gm PO UD PRN; Protocol PRN Reason: Hypoglycemia Protocol Stop: 09/24/24 18:18 Glucose (Glucose 10 Tab/Tube) 4 - 8 tab PO UD PRN; Protocol PRN Reason: Hypoglycemia Protocol Stop: 09/24/24 18:18 Hydralazine HCl (Hydralazine Hcl 25 Mg Tab) 25 mg PO HS MICKY Stop: 09/24/24 20:59 Hydromorphone HCl (Hydromorphone Inj 0.5 Mg/0.5 Ml Syr) 0.5 mg IV Q3H PRN PRN Reason: MODERATE Pain(4,5,6)/Pre PT Stop: 09/08/24 17:46 Hydromorphone HCl (Hydromorphone Inj 1 Mg/Ml Syringe) 1 mg IV Q3H PRN PRN Reason: SEVERE Pain (7,8,9,10) Stop: 09/08/24 17:46 Hydroxyzine HCl (Hydroxyzine Hcl 25 Mg Tab) 25 mg PO Q8H PRN PRN Reason: Anxiety Stop: 09/24/24 17:46 Lactated Ringer's (Lr) 1,000 mls @ 60 mls/hr IV .[id number] MICKY Stop: 08/25/24 22:39 Last Admin: 08/25/24 10:45 Dose: Not Given Cefazolin Sodium (Ancef 2000mg) 2,000 mg in 15 mls @ 3.75 mls/min IV PREOP MICKY; Protocol Stop: 08/26/24 05:59 Last Admin: 08/25/24 13:30 Dose: 3.75 mls/min Sodium Chloride (Nss) 500 mls @ 15 mls/hr IV .Q24H MICKY Stop: 08/26/24 10:44 Last Infusion: 08/25/24 12:56 Dose: Infused Acetaminophen (Ofirmev) 1,000 mg in 100 mls @ 400 mls/hr IV Q8H PRN PRN Reason: MILD Pain (1,2,3) & Pre PT Stop: 08/26/24 17:47 Cefazolin Sodium (Ancef 2000mg) 2,000 mg in 15 mls @ 3.75 mls/min IV Q8H MICKY; Protocol Stop: 08/26/24 05:33 Promethazine HCl (Phenergan) 12.5 mg in 50.5 mls @ 202 mls/hr IV Q6H PRN PRN Reason: Nausea And Vomiting Stop: 09/24/24 17:46 Influenza Virus Vaccine Quadrival (Do Not Administer Flu Vaccine) 1 each N/A PRN PRN PRN Reason: Notification Stop: 09/24/24 17:46 Insulin Aspart (Insulin Aspart Per Unit Charge) 0 units SC ACHS [facility] Stop: 09/24/24 18:29 Last Admin: 08/25/24 18:42 Dose: 11 units Lorazepam (Lorazepam 0.5 Mg Tab) 0.5 mg PO Q8H PRN PRN Reason: Sedation/Anxiety Stop: 09/24/24 17:46 Lorazepam (Lorazepam 2 Mg/1 Ml Vial) 0.5 mg IV Q8H PRN PRN Reason: Sedation/Anxiety Stop: 09/24/24 17:46 Magnesium Hydroxide (Magnesium Hydroxide Susp 30 Ml Udc) 30 ml PO Q24H PRN PRN Reason: Constipation Stop: 09/24/24 17:46 Metoclopramide HCl (Metoclopramide Hcl Inj 5 Mg/Ml 2 Ml Vial) 10 mg IV Q6H PRN PRN Reason: Nausea &/or Vomiting Stop: 09/24/24 17:46 Miscellaneous (Remove Nitro-Dur Patch) 1 each N/A DAILY@2100 [facility] Stop: 09/24/24 20:59 Miscellaneous (Carbohydrates For Hypoglycemia ) 15 - 30 gm PO UD PRN PRN Reason: Hypoglycemia Protocol Stop: 09/24/24 18:18 Miscellaneous Information (Pharmacy Glycemic Mgmt Consult) 1 each N/A UD PRN PRN Reason: Consult Stop: 09/24/24 17:46 Naloxone HCl (Naloxone Hcl 0.4 Mg/1 Ml Vial/Carp) 0.1 mg IV Q5M PRN PRN Reason: Oversedation/Resp depression Stop: 09/24/24 17:46 Nitroglycerin (Nitroglycerin Sl 0.4 Mg/Tab Tab) 0.4 mg SL Q5M PRN PRN Reason: Chest Pain Stop: 09/24/24 17:46 Nitroglycerin (Nitroglycerin 0.4 Mg/Hr Patch) 1 patch TD DAILY [facility] Stop: 09/25/24 08:59 Ondansetron HCl (Ondansetron Inj 2 Mg/Ml 2 Ml Vial) 4 mg IV Q6H PRN PRN Reason: Nausea &/or Vomiting Stop: 09/24/24 17:46 Ondansetron HCl (Ondansetron 4 Mg Od Tab) 4 mg PO Q6H PRN PRN Reason: Nausea Stop: 09/24/24 17:46 Oxycodone HCl (Oxycodone Hcl Ir 5 Mg Tab (Immediate Release)) 5 - 10 mg PO Q4H PRN PRN Reason: MOD/SEV Pain & Pre PT Stop: 09/08/24 17:46 Pneumococcal Polyvalent Vaccine (Do Not Administer Pneumococcal Vaccine) 1 each N/A PRN PRN PRN Reason: Notification Stop: 09/24/24 17:46 Polyethylene Glycol (Polyethylene (Miralax) 17 Gm Pack) 17 gm PO Q6 MICKY Stop: 09/25/24 05:59 Senna/Docusate Sodium (Docusate Sodium/Senna 50/8.6mg Tab) 2 tab PO HS MICKY Stop: 09/24/24 20:59 Sevelamer Carbonate (Sevelamer Carbonate 800 Mg Tab) 2,400 mg PO TIDM MICKY Stop: 09/24/24 17:59 Sodium Biphosphate/Sodium Phosphate (Sod Phosphate/Sod Biphosphate Enema 132 Ml Btl) 132 ml W[place] ONE PRN PRN Reason: Constipation Stop: 09/24/24 17:46 Tramadol HCl (Tramadol Hcl 50 Mg Tablet) 50 - 100 mg PO Q4H PRN PRN Reason: MOD/SEV Pain & Pre PT Stop: 09/24/24 17:46 Vitamin B Complex (Vitamin B Complex Tab) 1 tab PO HS MICKY Stop: 09/24/24 20:59 Vitamin D (Cholecalciferol 25 Mcg (1000 Units) Tab) 100 mcg PO QPM MICKY Stop: 09/24/24 20:59 ECG Additional Comments: I have independently reviewed and interpreted patient's admitting EKG which revealed: 63 NSR, prolonged qtc 511ms, no ST or t wave changes
[2024-08-25] MEDS: INSULIN ASPART PER UNIT CHARGE SC SCH (18:42)
[2024-08-25] MEDS: LANTUS PER UNIT CHARGE SC ONE (18:43)
[2024-08-25] MEDS: SEVELAMER CARBONATE 800 MG TAB PO SCH (18:47)
[2024-08-25] MEDS ORDERED: BRINZOLAMIDE (AZOPT) OPS 10 ML BTL OPR SCH (21:00)
[2024-08-25] MEDS ORDERED: BRIMONIDINE TARTRATE-P 0.15% 5 ML BTL OP SCH (21:00)
[2024-08-25] MEDS: DORZOLAMIDE HCL 2% OPH SOLN 10 ML BTL OPR SCH (22:23)
[2024-08-25] MEDS: BRIMONIDINE TARTRATE-P 0.15% 5 ML BTL OPR SCH (22:24)
[2024-08-25] MEDS: DOCUSATE SODIUM/SENNA 50/8.6MG TAB PO SCH (22:26)
[2024-08-25] MEDS: ACETAMINOPHEN 500 MG TAB PO PRN (22:26)
[2024-08-25] MEDS: VITAMIN B COMPLEX TAB PO SCH (22:27)
[2024-08-25] MEDS: CHOLECALCIFEROL 25 MCG (1000 UNITS) TAB PO SCH (22:27)
[2024-08-25] MEDS: ATORVASTATIN 40 MG TAB PO SCH (22:27)
[2024-08-25] MEDS: REMOVE NITRO-DUR PATCH SCH (22:28)
[2024-08-26] MEDS: POLYETHYLENE (MIRALAX) 17 GM PACK PO SCH (05:01)
[2024-08-26] MEDS: HYDROmorphone INJ 0.5 MG/0.5 ML SYR IV PRN (06:02)
[2024-08-26 06:37] LABS: Hematocrit (blood only) 25.2 % (37.0-47.0); Hemoglobin 8.4 g/dl (12.0-16.0); Immature Granulocytes # (auto) 0.03 K/uL (0.01-0.20); Immature Granulocytes % (auto) 0.3 %; Mean Corpuscular Hemoglobin 32.6 pg (25.0-34.0); Mean Corpuscular Volume 97.7 fL (80.0-100.0); Platelet Count 138 K/uL (130-400); RDW Standard Deviation 46.3 fL (36.4-46.3); Red Blood Count 2.58 M/uL (4.20-5.40); White Blood Count 10.15 K/ul (4.8-10.8)
[2024-08-26 06:57] LABS: Anion Gap 9.0 (3-11); Blood Urea Nitrogen 44.0 mg/dl (6-23); Calcium 8.3 mg/dl (8.6-10.3); Carbon Dioxide 28.0 mmol/L (21-32); Chloride 100.0 mmol/L (98-107); Creatinine Clr Calc Pharmacy 7.4 ml/min; Glucose 141.0 mg/dl (70-99(Fasting)); Potassium 5.1 mmol/L (3.5-5.1); Sodium 137.0 mmol/L (136-145)
[2024-08-26 07:38] LABS: Hemoglobin A1C 5.9 % (4.5-5.6)
[2024-08-26] MEDS ORDERED: SODIUM CHLORIDE 0.9% 1,000 ML IV PRN (07:52)
[2024-08-26] MEDS: FUROSEMIDE 40 MG TAB PO SCH (08:13)
--- NOTE | 2024-08-26 09:27 | Orthopedic Progress Note ---
Date of Service August 26, 2024 Assessment & Plan (1) Two-level lumbosacral spondylosis with radiculopathy: Plan: At this time initiate physical therapy monitor SHIRA output and determine disposition in the next few days. Admission and Anticipated Discharge Date Admission Date: August 25, 2024 Subjective Back pain controlled leg pain improved Physical Exam Physical Exam: Patient is currently in bed. She appears comfortable. Skin strength testing. Results & Data Vital Signs (Past 12 Hours) Vital Signs Temp Pulse Resp BP Pulse Ox O2 Del Method 08/26/24 08:00 Room Air 08/26/24 07:00 36.9 C 68 16 108/56 L 94 Room Air 08/26/24 03:34 36.9 C 65 16 112/58 L 98 Room Air 08/25/24 23:00 36.6 C 66 16 122/63 98 Room Air 08/25/24 22:00 Room Air Queries Orthopedic Spine Obesity: Yes
--- NOTE | 2024-08-26 09:29 | Pharmacy Report ---
Pharmacy Glycemic Short Note 2 - Date of Service August 26, 2024 - Glycemic Short BSG Results (Last 24 hours): 08/25/24 08/25/24 08/25/24 09:43 10:00 15:38 Glucose 160 H POC Glucose 147 H 151 H 08/25/24 08/25/24 08/25/24 18:12 18:14 20:31 Glucose POC Glucose 304 H* 299 H 279 H 08/26/24 08/26/24 06:20 07:40 Glucose 141 H POC Glucose 154 H OUTPATIENT ANTIDIABETIC REGIMEN: * Humalog 35 units SQ BID * Basaglar 44 units SQ HS (on fill history) * Patient's A1c = 7.7% 03/03/24. * However, this result is likely somewhat unreliable in ESRD patients d/t interactions between the A1c analyzing technique and high levels of urea in ESRD, reduced RBC life span, iron deficiency anemia, and EPO administration. HbA1c > 7.5% in ESRD patient may overestimate the extent of hyperglycemia in ESRD patients. ASSESSMENT: * Arely is a 68 year old female admitted status post spinal decompression/fusion with a history of type 2 diabetes mellitus and end stage renal disease on hemodialysis MWF. Pharmacy has been consulted to assist with glycemic management while inpatient. * Preoperative BSG within goal, received dexamethasone 8mg IV preoperatively, BSGs significantly increased to 299 at dinner. Basal insulin at ~0.4units/kg x1 ordered to help cover steroid induced hyperglycemia. Will order HS Lantus at reduced doses based on BSG this evening. * NovoLog at a weight based stress of 3, will reduce this afternoon due to no ongoing steroids. PLAN FOR INPATIENT GLYCEMIC CONTROL: * Hold outpatient oral diabetes medications * Basal insulin * Lantus 30 units SQ x1 * Lantus 10-30 SQ HS (see eMAR for additional details) * Bolus insulin * NovoLog per scale ACHS or Q6hrs while NPO * Goal Range: Low 110 mg/dL - High 140 mg/dL * Correction Factor: 15 mg/dL/unit * Nutritional / Prandial insulin per carb ratio of 1 unit per 5 grams CHO consumed
--- NOTE | 2024-08-26 10:33 | Hospitalist Progress Note ---
Date of Service August 26, 2024 Assessment & Plan (1) Two-level lumbosacral spondylosis with radiculopathy: (2) CAD (coronary artery disease): (3) ESRD (end stage renal disease) on dialysis: (4) Diabetes mellitus: Plan This is a 68-year-old female who has a significant medical history of ESRD on HD Saturday, CAD s/p CABG, T2DM, HTN, hx of breast cancer in remission and cirrhosis who presents for elective lumbar procedure by Dr. Hansen. # 2 level lumbar sacral spondylosis with radiculopathy status post lumbar decompression fusion L3-S1, POD #1 pain/wound management per Ortho encourage incentive spirometry monitor hemoglobin, preop 10.2, likely chronic anemia in setting of end-stage renal disease Pt wheel chair bound prior to procedure, since May 10, Goal is to walk again, may need rehab Acute on chronic anemia, post-op, acute blood loss anemia -post op Hgb 8.4, pre-op 10.2 - cont. to monitor closely #ESRD on HD MW Nephrology consulted for HD needs, last tx was on 08/[address] Calvin, Renal in [place] for HD needs #CAD hx of CABG in 2006, hx of LAD SCOTTIE x [address] Fernandez in [place] on ASA, Statin, Plavix, Lipitor, coreg ASA, Plavix currently on hold - will need to discuss with Dr. Hansen in a.m. if able to at least resume ASA #HTN chronic, stable on hydralazine, coreg, lasix, clonidine and nitropatch monitor volume status #T2DM pt on higher doses of insulin at home, last a1c 7.7 on 03/03/24, current A1c 5.8% pharmacy consulted for glycemic management #B/L Carotid artery stenosis: continue asa, plavix, outpt cards following #DVT ppx: per primary FULL CODE PCP: Dr. Simone Hawkins, [facility] Dispo: per primary Thank you for this consultation. We will follow the patient with you during their hospital stay. You can reach a member of the [facility] Hospitalist Team 03/09 via hospitalist role on tiger text. Admission and Anticipated Discharge Date Admission Date: August 25, 2024 Subjective Pt seen in follow up of med consult, s/p lumbar surgery Currently sitting up in chair in NAD Reports some back pain but otherwise has no other complaints Denies any fever, chills, chest pain or shortness of breath, denies abd. pain, n/v Says she has supportive family at home Review of Systems Review of Systems: All systems reviewed & are unremarkable except as noted in Subjective Physical Exam Physical Exam: Gen: WD/WN, NAD, A&O x3. HEENT: Normocephalic, atraumatic, conjunctivae moist, sclerae anicteric, mucous membranes moist. Lung: Clear to Auscultation bilaterally, no wheezes/rales/rhonchi Heart: Regular rate, regular rhythm Abdomen: Soft, NT, ND +BS x 4 Extremities: No edema, LUE fistula Skin: Warm, dry : +marley cath draining yellow urine Results & Data Results & Data Vital Signs (Past 12 Hours) Vital Signs Temp Pulse Resp BP Pulse Ox O2 Del Method 08/26/24 08:00 Room Air 08/26/24 07:00 36.9 C 68 16 108/56 L 94 Room Air 08/26/24 03:34 36.9 C 65 16 112/58 L 98 Room Air 08/25/24 23:00 36.6 C 66 16 122/63 98 Room Air Laboratory Results 08/26/24 08/26/24 08/25/24 Range/Units 07:40 06:20 22:00 WBC 10.15 (4.8-10.8) K/ul RBC 2.58 L (4.20-5.40) M/uL Hgb 8.4 L (12.0-16.0) g/dl Hct 25.2 L (37.0-47.0) % MCV 97.7 (80.0-100.0) fL MCH 32.6 (25.0-34.0) pg MCHC 33.3 (32.0-36.0) g/dL RDW Std Deviation 46.3 (36.4-46.3) fL RDW Coeff of [place] 12.8 (11.5-14.5) % Plt Count 138 (130-400) K/uL MPV 10.3 (9.4-12.4) fL Immature Gran % (Auto) 0.3 % Neut % (Auto) 81.2 % Lymph % (Auto) 6.8 % Bledsoe % (Auto) 11.6 % Eos % (Auto) 0.0 % Baso % (Auto) 0.1 % Neut # (Auto) 8.24 H (1.40-6.50) K/uL Lymph # (Auto) 0.69 L (1.20-3.40) K/uL Bledsoe # (Auto) 1.18 H (0.11-0.59) K/uL Eos # (Auto) 0.00 (0.00-0.50) K/uL Baso # (Auto) 0.01 (0.00-0.20) K/uL Immature Gran # (Auto) 0.03 (0.01-0.20) K/uL Sodium 137 (136-145) mmol/L Potassium 5.1 D (3.5-5.1) mmol/L Chloride 100 (98-107) mmol/L Carbon Dioxide 28 (21-32) mmol/L Anion Gap 9 (3-11) BUN 44 H (6-23) mg/dl Creatinine 7.15 H* D (0.6-1.2) mg/dl Est Cr Clr Drug Dosing 7.4 ml/min eGFR 5.75 BUN/Creatinine Ratio 6.2 L (10-20) Glucose 141 H (70-99(Fasting)) mg/dl POC Glucose 154 H (70-99) mg/dl Estimat Average Glucose 123 mg/dl Hemoglobin A1c 5.9 H (4.5-5.6) % Calcium 8.3 L (8.6-10.3) mg/dl Nasal Screen MRSA (PCR) Negative (Negative) Blood Type Antibody Screen 08/25/24 08/25/24 08/25/24 Range/Units 20:31 18:14 18:12 WBC (4.8-10.8) K/ul RBC (4.20-5.40) M/uL Hgb (12.0-16.0) g/dl Hct (37.0-47.0) % MCV (80.0-100.0) fL MCH (25.0-34.0) pg MCHC (32.0-36.0) g/dL RDW Std Deviation (36.4-46.3) fL RDW Coeff of [place] (11.5-14.5) % Plt Count (130-400) K/uL MPV (9.4-12.4) fL Immature Gran % (Auto) % Neut % (Auto) % Lymph % (Auto) % Bledsoe % (Auto) % Eos % (Auto) % Baso % (Auto) % Neut # (Auto) (1.40-6.50) K/uL Lymph # (Auto) (1.20-3.40) K/uL Bledsoe # (Auto) (0.11-0.59) K/uL Eos # (Auto) (0.00-0.50) K/uL Baso # (Auto) (0.00-0.20) K/uL Immature Gran # (Auto) (0.01-0.20) K/uL Sodium (136-145) mmol/L Potassium (3.5-5.1) mmol/L Chloride (98-107) mmol/L Carbon Dioxide (21-32) mmol/L Anion Gap (3-11) BUN (6-23) mg/dl Creatinine (0.6-1.2) mg/dl Est Cr Clr Drug Dosing ml/min eGFR BUN/Creatinine Ratio (10-20) Glucose (70-99(Fasting)) mg/dl POC Glucose 279 H 299 H 304 H* (70-99) mg/dl Estimat Average Glucose mg/dl Hemoglobin A1c (4.5-5.6) % Calcium (8.6-10.3) mg/dl Nasal Screen MRSA (PCR) (Negative) Blood Type Antibody Screen 08/25/24 08/25/24 Range/Units 15:38 10:00 WBC (4.8-10.8) K/ul RBC (4.20-5.40) M/uL Hgb (12.0-16.0) g/dl Hct (37.0-47.0) % MCV (80.0-100.0) fL MCH (25.0-34.0) pg MCHC (32.0-36.0) g/dL RDW Std Deviation (36.4-46.3) fL RDW Coeff of [place] (11.5-14.5) % Plt Count (130-400) K/uL MPV (9.4-12.4) fL Immature Gran % (Auto) % Neut % (Auto) % Lymph % (Auto) % Bledsoe % (Auto) % Eos % (Auto) % Baso % (Auto) % Neut # (Auto) (1.40-6.50) K/uL Lymph # (Auto) (1.20-3.40) K/uL Bledsoe # (Auto) (0.11-0.59) K/uL Eos # (Auto) (0.00-0.50) K/uL Baso # (Auto) (0.00-0.20) K/uL Immature Gran # (Auto) (0.01-0.20) K/uL Sodium 137 (136-145) mmol/L Potassium 4.2 (3.5-5.1) mmol/L Chloride 100 (98-107) mmol/L Carbon Dioxide 29 (21-32) mmol/L Anion Gap 8 (3-11) BUN 29 H (6-23) mg/dl Creatinine 5.52 H* (0.6-1.2) mg/dl Est Cr Clr Drug Dosing 9.6 ml/min eGFR 7.85 BUN/Creatinine Ratio 5.3 L (10-20) Glucose 160 H (70-99(Fasting)) mg/dl POC Glucose 151 H (70-99) mg/dl Estimat Average Glucose mg/dl Hemoglobin A1c (4.5-5.6) % Calcium 8.9 (8.6-10.3) mg/dl Nasal Screen MRSA (PCR) (Negative) Blood Type O Positive Antibody Screen NEGATIVE Medications Administered Current Inpatient Medications Acetaminophen (Acetaminophen 500 Mg Tab) 1,000 mg PO Q8H PRN PRN Reason: MILD Pain (1,2,3) & Pre PT Stop: 09/24/24 17:46 Last Admin: 08/25/24 22:26 Dose: 1,000 mg Atorvastatin Calcium (Atorvastatin 40 Mg Tab) 80 mg PO HS MICKY Stop: 09/24/24 20:59 Last Admin: 08/25/24 22:27 Dose: 80 mg Bisacodyl (Bisacodyl 10 Mg Supp) 10 mg SC DAILY PRN PRN Reason: Constipation Stop: 09/24/24 17:46 Brimonidine Tartrate (Brimonidine Tartrate-P 0.15% 5 Ml Btl) 1 drops OPR Q12 MICKY Stop: 09/24/24 20:59 Last Admin: 08/26/24 08:13 Dose: 1 drops Carvedilol (Carvedilol 6.25 Mg Tab) 6.25 mg PO HS MICKY Stop: 09/24/24 20:59 Last Admin: 08/25/24 22:27 Dose: 6.25 mg Clonidine HCl (Clonidine Hcl 0.1 Mg Tab) 0.1 mg PO HS MICKY Stop: 09/24/24 20:59 Last Admin: 08/25/24 22:27 Dose: 0.1 mg Dextrose (Dextrose 50% 50 Ml Syringe) 25 - 50 ml IV UD PRN; Protocol PRN Reason: Hypoglycemia Protocol Stop: 09/24/24 18:18 Diphenhydramine HCl (Diphenhydramine Capsule 25 Mg Cap) 25 mg PO Q6H PRN PRN Reason: Allergic Rhinitis/Insomnia Stop: 09/24/24 17:46 Dorzolamide HCl (Dorzolamide Hcl 2% Oph Soln 10 Ml Btl) 1 drops OPR Q12 MICKY Stop: 09/24/24 20:59 Last Admin: 08/26/24 08:13 Dose: 1 drops Famotidine (Famotidine 20 Mg Tab) 20 mg PO Q12H PRN PRN Reason: Dyspepsia Stop: 09/24/24 17:46 Furosemide (Furosemide 40 Mg Tab) 40 mg PO QAM MICKY Stop: 09/25/24 08:59 Last Admin: 08/26/24 08:13 Dose: Not Given Gabapentin (Gabapentin 300 Mg Cap) 300 mg PO PREOP MICKY Stop: 09/24/24 05:59 Last Admin: 08/26/24 05:00 Dose: Not Given Glucagon (Glucagon For Inj 1 Mg Vial) 1 mg SQ UD PRN; Protocol PRN Reason: Hypoglycemia Protocol Stop: 09/24/24 18:18 Glucose (Glucose 40% Gel 15 Gm Tube) 15 - 30 gm PO UD PRN; Protocol PRN Reason: Hypoglycemia Protocol Stop: 09/24/24 18:18 Glucose (Glucose 10 Tab/Tube) 4 - 8 tab PO UD PRN; Protocol PRN Reason: Hypoglycemia Protocol Stop: 09/24/24 18:18 Hydralazine HCl (Hydralazine Hcl 25 Mg Tab) 25 mg PO HS MICKY Stop: 09/24/24 20:59 Last Admin: 08/25/24 22:27 Dose: 25 mg Hydromorphone HCl (Hydromorphone Inj 0.5 Mg/0.5 Ml Syr) 0.5 mg IV Q3H PRN PRN Reason: MODERATE Pain(4,5,6)/Pre PT Stop: 09/08/24 17:46 Last Admin: 08/26/24 06:02 Dose: 0.5 mg Hydromorphone HCl (Hydromorphone Inj 1 Mg/Ml Syringe) 1 mg IV Q3H PRN PRN Reason: SEVERE Pain (7,8,9,10) Stop: 09/08/24 17:46 Hydroxyzine HCl (Hydroxyzine Hcl 25 Mg Tab) 25 mg PO Q8H PRN PRN Reason: Anxiety Stop: 09/24/24 17:46 Sodium Chloride (Nss) 500 mls @ 15 mls/hr IV .Q24H MICKY Stop: 08/26/24 10:44 Last Infusion: 08/25/24 12:56 Dose: Infused Acetaminophen (Ofirmev) 1,000 mg in 100 mls @ 400 mls/hr IV Q8H PRN PRN Reason: MILD Pain (1,2,3) & Pre PT Stop: 08/26/24 17:47 Promethazine HCl (Phenergan) 12.5 mg in 50.5 mls @ 202 mls/hr IV Q6H PRN PRN Reason: Nausea And Vomiting Stop: 09/24/24 17:46 Sodium Chloride (Nss) 1,000 mls @ 0 mls/hr IV .Q0M PRN PRN Reason: For Hemodialysis Use ONLY Stop: 08/26/24 13:51 Influenza Virus Vaccine Quadrival (Do Not Administer Flu Vaccine) 1 each N/A PRN PRN PRN Reason: Notification Stop: 09/24/24 17:46 Insulin Aspart (Insulin Aspart Per Unit Charge) 0 units SC [facility] Stop: 09/24/24 18:29 Last Admin: 08/26/24 08:16 Dose: 5 units Insulin Glargine (Lantus Per Unit Charge) 0 units SC [facility]; Protocol Stop: 09/25/24 20:59 Lorazepam (Lorazepam 0.5 Mg Tab) 0.5 mg PO Q8H PRN PRN Reason: Sedation/Anxiety Stop: 09/24/24 17:46 Lorazepam (Lorazepam 2 Mg/1 Ml Vial) 0.5 mg IV Q8H PRN PRN Reason: Sedation/Anxiety Stop: 09/24/24 17:46 Metoclopramide HCl (Metoclopramide Hcl Inj 5 Mg/Ml 2 Ml Vial) 10 mg IV Q6H PRN PRN Reason: Nausea &/or Vomiting Stop: 09/24/24 17:46 Miscellaneous (Remove Nitro-Dur Patch) 1 each N/A DAILY@2100 [facility] Stop: 09/24/24 20:59 Last Admin: 08/25/24 22:28 Dose: 1 each Miscellaneous (Carbohydrates For Hypoglycemia ) 15 - 30 gm PO UD PRN PRN Reason: Hypoglycemia Protocol Stop: 09/24/24 18:18 Miscellaneous Information (Pharmacy Glycemic Mgmt Consult) 1 each N/A UD PRN PRN Reason: Consult Stop: 09/24/24 17:46 Naloxone HCl (Naloxone Hcl 0.4 Mg/1 Ml Vial/Carp) 0.1 mg IV Q5M PRN PRN Reason: Oversedation/Resp depression Stop: 09/24/24 17:46 Nitroglycerin (Nitroglycerin Sl 0.4 Mg/Tab Tab) 0.4 mg SL Q5M PRN PRN Reason: Chest Pain Stop: 09/24/24 17:46 Nitroglycerin (Nitroglycerin 0.4 Mg/Hr Patch) 1 patch TD DAILY [facility] Stop: 09/25/24 08:59 Ondansetron HCl (Ondansetron Inj 2 Mg/Ml 2 Ml Vial) 4 mg IV Q6H PRN PRN Reason: Nausea &/or Vomiting Stop: 09/24/24 17:46 Ondansetron HCl (Ondansetron 4 Mg Od Tab) 4 mg PO Q6H PRN PRN Reason: Nausea Stop: 09/24/24 17:46 Oxycodone HCl (Oxycodone Hcl Ir 5 Mg Tab (Immediate Release)) 5 - 10 mg PO Q4H PRN PRN Reason: MOD/SEV Pain & Pre PT Stop: 09/08/24 17:46 Pneumococcal Polyvalent Vaccine (Do Not Administer Pneumococcal Vaccine) 1 each N/A PRN PRN PRN Reason: Notification Stop: 09/24/24 17:46 Polyethylene Glycol (Polyethylene (Miralax) 17 Gm Pack) 17 gm PO Q6 MICKY Stop: 09/25/24 05:59 Last Admin: 08/26/24 05:01 Dose: Not Given Senna/Docusate Sodium (Docusate Sodium/Senna 50/8.6mg Tab) 2 tab PO HS MICKY Stop: 09/24/24 20:59 Last Admin: 08/25/24 22:26 Dose: 2 tab Sevelamer Carbonate (Sevelamer Carbonate 800 Mg Tab) 2,400 mg PO TIDM MICKY Stop: 09/24/24 17:59 Last Admin: 08/26/24 08:22 Dose: Not Given Sodium Biphosphate/Sodium Phosphate (Sod Phosphate/Sod Biphosphate Enema 132 Ml Btl) 132 ml SC ONE PRN PRN Reason: Constipation Stop: 09/24/24 17:46 Tramadol HCl (Tramadol Hcl 50 Mg Tablet) 50 - 100 mg PO Q4H PRN PRN Reason: MOD/SEV Pain & Pre PT Stop: 09/24/24 17:46 Last Admin: 08/26/24 05:05 Dose: 100 mg Vitamin B Complex (Vitamin B Complex Tab) 1 tab PO HS MICKY Stop: 09/24/24 20:59 Last Admin: 08/25/24 22:27 Dose: 1 tab Vitamin D (Cholecalciferol 25 Mcg (1000 Units) Tab) 100 mcg PO QPM MICKY Stop: 09/24/24 20:59 Last Admin: 08/25/24 22:27 Dose: 100 mcg
[2024-08-26] MEDS: NITROGLYCERIN 0.4 MG/HR PATCH TD SCH (11:49)
--- NOTE | 2024-08-26 12:11 | Nephrology Consultation ---
Date of Consultation August 26, 2024 Assessment & Plan (1) ESRD (end stage renal disease) on dialysis: on MWF HD via AVF. chemistries acceptable>K 5.1. -routine HD today 2 K bath, moderate UF goal given RA, relative hypotension >will ensure BP meds w/ hold parameters > some dose frequencies are unexpected on hydralazine and on coreg and will reeval w/ consult team -continue binder; won't be stringent right now w/ fluid limit but monitor for need -continue lasix (2) Anemia in ESRD (end-stage renal disease): hgb 8.4; max dose epo on tx; monitor daily; 400 mL EBL (3) Spinal stenosis: s/p elective lumbar decompression / fusion L3-L5 on 08/25 > per ortho and primary service History of Present Illness Reason for Consultation: HD needs MWF Requesting Physician: Dr Zuluaga Attending Physician: Dexter Hansen, History of Present Illness 68 y/o F whom I'm asked to see for HD needs underwent elective lumbar decompression / fusion L3-L5 on 08/25. PMH includes ESRD on MWF HD via AVF, CAD, DM2, BL carotid artery stenosis, HTN, 2021 lumpectomy for Breast CA. Procedure was uneventful; she is to start PT today. EBL 400 mL. She tells me that apart from some not unexpected back pain she feels ok. no sob, no n/v, no confusion, no edema, no cough, no diarrhea, no new focal numbness/weakness. no new or worrisome voiding complaints. Allergies Allergy/AdvReac Type Severity Reaction Status Date / Time hydrocodone Allergy Unknown Nausea Verified 08/25/24 10:12 naproxen Allergy Unknown Nausea Verified 08/25/24 10:12 gabapentin AdvReac Intermediate Nausea Verified 08/25/24 10:12 Home Medications Medication Instructions Recorded Confirmed Type atorvastatin 80 mg tablet (Lipitor) 80 mg PO HS 07/08/24 08/25/24 History brimonidine 0.15 % eye drops 1 drp OPR Q12H 07/08/24 08/25/24 History (Alphagan P) brimonidine 0.15 %-dorzolamide 2 % 1 drp ophthalmic (eye) Q12H 07/08/24 08/25/24 History (PF) eye drops carvedilol 6.25 mg tablet 6.25 mg PO HS 07/08/24 08/25/24 History cholecalciferol (vitamin D3) 100 4,000 unit PO QPM 07/08/24 08/25/24 History mcg (4,000 unit) capsule clonidine HCl 0.1 mg tablet 0.1 mg PO HS 07/08/24 08/25/24 History clopidogrel 75 mg tablet (Plavix) 75 mg PO QAM 07/08/24 08/25/24 History furosemide 40 mg tablet (Lasix) 40 mg PO QAM 07/08/24 08/25/24 History hydralazine 25 mg tablet 25 mg PO HS 07/08/24 08/25/24 History insulin lispro 100 unit/mL 35 unit subcut BID 07/08/24 08/25/24 History subcutaneous pen (Humalog KwikPen (U-100) Insulin) lactulose 20 gram oral packet 20 g PO BID PRN Constipation 07/08/24 08/25/24 History nitroglycerin 0.4 mg sublingual 0.4 mg sublingual UD PRN Chest Pain 07/08/24 08/25/24 History tablet nitroglycerin 0.4 mg/hr 1 patch transdermal DAILY 07/08/24 08/25/24 History transdermal 24 hour patch sevelamer carbonate 800 mg tablet 2,400 mg PO TID 07/08/24 08/25/24 History vitamin B complex 1 cap PO HS 07/08/24 08/25/24 History aspirin 81 mg tablet 81 mg PO DAILY 08/25/24 08/25/24 History oxycodone 5 mg tablet 5 mg PO Q6H PRN pain #30 tabs 08/26/24 Rx tramadol 50 mg tablet 50 mg PO Q6H PRN pain, moderate 08/26/24 Rx #30 tabs Patient History Medical History Aortic stenosis mild Potential difficult intubation on pre-intubation airway assessment limited cervical spine ROM, cervical spine MRI planned by Dr. Hansen/not yet scheduled Mitral regurgitation mild-moderate History of blood transfusion (~1979) miscarriage Tremor intermittent upper extremities when using arms to assist stand up-patient states Dr. Hansen plans to order cervical MRI for these symptoms. Denies change or worsening since seeing his clinic. Denies neck pain. CAD (coronary artery disease) CABG x 2 2006 and 1 stent in 2021 Hx of Clostridium difficile infection (2020) treated at [facility] Difficult intravenous access reports having IV's placed in feet in past Arthritis Spinal stenosis ESRD (end stage renal disease) on dialysis HD at [facility] in [place]- - follows with dr. glez, neph in [place] Limb alert care status left- AV Fistula right- right breast lumpectomy and lymph node removal- states ok for BP on lower right arm and wants IV right hand or foot History of right breast cancer (2021) lumpectomy and xrt Hypertension controlled, stable per pt Diabetes mellitus IDDM Hx of colonic polyps Hemodialysis patient x 3 years, Renal in [facility] - follows with dr. 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 martinez- ~ (1 month) Social History Smoking Status: Former smoker Tobacco Type: Cigarettes Smoking End Date: 2006; Second Hand Exposure: No; Do You Dip or Chew Tobacco: No; Tobacco Cessation Education Requested by Patient: No Hx Alcohol Use: No Hx Substance Use: No Preferred Language: Portuguese Communication Ability: Effective Beef Lugger Required: No Beliefs That Will Affect Care: None Current Living Situation: Spouse Other Information That Helps Us Care for You: No Feels Safe at Home: Yes Safety Concerns: Feels Safe At This Time Assistive Devices: Walker and Wheelchair Review of Systems 2 Review of Systems: All systems reviewed & are unremarkable except as noted in HPI & below Physical Exam 2 Constitutional: well developed and well nourished Eyes: EOM intact bilaterally ENMT: Mouth: + dry oral mucous membranes Respiratory: normal respiratory effort Auscultation: + diminished lung sounds Cardiovascular: Rate/Rhythm: regular rate and regular rhythm Extremities: + edema (trace ble) and + AV fistula Gastrointestinal (Abdomen): Inspection/Auscultation: normal bowel sounds P ercussion/Palpation: abdomen soft; abdomen nontender Musculoskeletal: Extremities: strength 5/5 throughout Skin: no rashes, warm and dry Neurologic: [place], fluent speech, no tremor Results & Data Vital Signs (Past 12 Hours) Vital Signs Temp Pulse Resp BP Pulse Ox O2 Del Method 08/26/24 11:00 36.7 C 61 16 101/54 L 98 Room Air 08/26/24 08:00 Room Air 08/26/24 07:00 36.9 C 68 16 108/56 L 94 Room Air 08/26/24 03:34 36.9 C 65 16 112/58 L 98 Room Air Laboratory Results 08/26/24 06:20 08/26/24 06:20 Diagnostic Findings no cxr
[2024-08-26] MEDS: EPOETIN ALFA 10,000 UNITS/ML VIAL IV ONE (16:57)
[2024-08-26 19:28] LABS: Hep B Surface Ag with confirm Negative (Negative)
[2024-08-26] MEDS: LANTUS PER UNIT CHARGE SC SCH (22:19)
[2024-08-27] MEDS: diphenhydrAMINE Capsule 25 MG CAP PO PRN (07:21)
[2024-08-27 07:22] LABS: Hematocrit (blood only) 24.1 % (37.0-47.0); Hemoglobin 8.0 g/dl (12.0-16.0); Mean Corpuscular Hemoglobin 32.9 pg (25.0-34.0); Mean Corpuscular Volume 99.2 fL (80.0-100.0); Platelet Count 134 K/uL (130-400); RDW Standard Deviation 46.5 fL (36.4-46.3); Red Blood Count 2.43 M/uL (4.20-5.40); White Blood Count 7.92 K/ul (4.8-10.8)
[2024-08-27 07:45] LABS: Anion Gap 7.0 (3-11); Blood Urea Nitrogen 24.0 mg/dl (6-23); Calcium 8.3 mg/dl (8.6-10.3); Carbon Dioxide 32.0 mmol/L (21-32); Chloride 96.0 mmol/L (98-107); Creatinine Clr Calc Pharmacy 10.8 ml/min; Glucose 113.0 mg/dl (70-99(Fasting)); Magnesium 2.1 mg/dl (1.7-2.4); Potassium 4.1 mmol/L (3.5-5.1); Sodium 135.0 mmol/L (136-145)
--- NOTE | 2024-08-27 08:21 | Orthopedic Progress Note ---
Date of Service August 27, 2024 Assessment & Plan (1) Two-level lumbosacral spondylosis with radiculopathy: Plan: Arely is postoperative day 2 status post L3-5 decompression and fusion. She will start physical therapy today. DVT prophylaxis is in the form teds and SCDs. Continue with pain control. Continue with aggressive bowel regimen. Anticipate discharge home tomorrow. maintain SHIRA drain Admission and Anticipated Discharge Date Admission Date: August 25, 2024 Sharon Nino is postoperative day 2 status post L3-5 decompression and fusion. Leg pain improved. She has some lower back pain today. She is passing flatus. She missed a physical therapy date yesterday due to her dialysis treatment. She will start it today. SHIRA drain output left shift was 40 cc. Review of Systems Review of Systems: All systems reviewed & are unremarkable except as noted in HPI & below Physical Exam Physical Exam: She is sitting in bed eating breakfast in no acute distress Alert and oriented x 3 Dressing is clean dry and intact with functioning SHIRA drain Calf soft and nontender, teds intact bilateral lower extremities Strength intact bilateral lower extremities Results & Data Vital Signs (Past 12 Hours) Vital Signs Temp Pulse Pulse Resp BP Pulse Ox O2 Del Method 08/27/24 07:14 36.9 C 62 16 104/57 L 95 Room Air 08/26/24 22:00 Room Air 08/26/24 21:21 36.8 C 77 20 102/60 98 Room Air Queries Orthopedic Spine Obesity: Yes
--- NOTE | 2024-08-27 10:34 | Hospitalist Progress Note ---
Date of Service August 27, 2024 Assessment & Plan (1) Two-level lumbosacral spondylosis with radiculopathy: (2) CAD (coronary artery disease): (3) ESRD (end stage renal disease) on dialysis: (4) Diabetes mellitus: Plan This is a 68-year-old female who has a significant medical history of ESRD on HD Saturday, CAD s/p CABG, T2DM, HTN, hx of breast cancer in remission and cirrhosis who presents for elective lumbar procedure by Dr. Hansen. # 2 level lumbar sacral spondylosis with radiculopathy status post lumbar decompression fusion L3-S1, POD #2 pain/wound management per Ortho encourage incentive spirometry monitor hemoglobin, preop 10.2, likely chronic anemia in setting of end-stage renal disease Pt wheel chair bound prior to procedure, since May 10, Goal is to walk again, may need rehab Acute on chronic anemia, post-op, acute blood loss anemia -post op Hgb 8.4, current 8.0, pre-op 10.2 - cont. to monitor closely #ESRD on HD [facility] Nephrology consulted for HD needs, last tx was on 08/[address] Calvin, Renal in [place] for HD needs #CAD hx of CABG in 2006, hx of LAD SCOTTIE x [address] Fernandez in [place] on ASA, Statin, Plavix, Lipitor, coreg ASA, Plavix currently on hold - will need to discuss with Dr. Hansen if able to at least resume ASA #HTN chronic, stable on hydralazine, coreg, lasix, clonidine and nitropatch monitor volume status #T2DM pt on higher doses of insulin at home, last a1c 7.7 on 03/03/24, current A1c 5.8% pharmacy consulted for glycemic management #B/L Carotid artery stenosis: continue asa, plavix, outpt cards following #DVT ppx: per primary FULL CODE PCP: Dr. Simone Hawkins, [facility] Dispo: per primary Thank you for this consultation. We will follow the patient with you during their hospital stay. You can reach a member of the [facility] Hospitalist Team 03/09 via hospitalist role on tiger text. Admission and Anticipated Discharge Date Admission Date: August 25, 2024 Subjective Pt seen in follow up of med consult, s/p lumbar surgery Currently sitting up in chair in NAD Reports some back pain but otherwise has no other complaints Denies any fever, chills, chest pain or shortness of breath, denies abd. pain, n/v Had HD yesterday Family present at the bedside Review of Systems Review of Systems: All systems reviewed & are unremarkable except as noted in Subjective Physical Exam Physical Exam: Gen: WD/WN, NAD, A&O x3. HEENT: Normocephalic, atraumatic, conjunctivae moist, sclerae anicteric, mucous membranes moist. Lung: Clear to Auscultation bilaterally, no wheezes/rales/rhonchi Heart: Regular rate, regular rhythm Abdomen: Soft, NT, ND +BS x 4 Extremities: No edema, LUE fistula Skin: Warm, dry : +marley cath draining yellow urine Results & Data Results & Data Vital Signs (Past 12 Hours) Vital Signs Temp Pulse Pulse Resp BP Pulse Ox O2 Del Method 08/27/24 09:55 67 16 94/54 L 95 Room Air 08/27/24 07:14 36.9 C 62 16 104/57 L 95 Room Air Laboratory Results 08/27/24 08/27/24 08/26/24 Range/Units 07:31 06:41 20:40 WBC 7.92 (4.8-10.8) K/ul RBC 2.43 L (4.20-5.40) M/uL Hgb 8.0 L (12.0-16.0) g/dl Hct 24.1 L (37.0-47.0) % MCV 99.2 (80.0-100.0) fL MCH 32.9 (25.0-34.0) pg MCHC 33.2 (32.0-36.0) g/dL RDW Std Deviation 46.5 H (36.4-46.3) fL RDW Coeff of [place] 13.0 (11.5-14.5) % Plt Count 134 (130-400) K/uL MPV 10.7 (9.4-12.4) fL Sodium 135 L (136-145) mmol/L Potassium 4.1 (3.5-5.1) mmol/L Chloride 96 L (98-107) mmol/L Carbon Dioxide 32 (21-32) mmol/L Anion Gap 7 (3-11) BUN 24 H D (6-23) mg/dl Creatinine 4.92 H* D (0.6-1.2) mg/dl Est Cr Clr Drug Dosing 10.8 ml/min eGFR 9.01 BUN/Creatinine Ratio 4.9 L (10-20) Glucose 113 H (70-99(Fasting)) mg/dl POC Glucose 125 H 187 H (70-99) mg/dl Calcium 8.3 L (8.6-10.3) mg/dl Phosphorus 4.6 (2.5-4.9) mg/dl Magnesium 2.1 (1.7-2.4) mg/dl Hep Bs Antigen (Negative) Hep Bs Antibody Hep Bs Antibody, Quant (>or=10mIU/mL Immune) mIU/mL 08/26/24 08/26/24 08/26/24 Range/Units 18:19 17:52 11:30 WBC (4.8-10.8) K/ul RBC (4.20-5.40) M/uL Hgb (12.0-16.0) g/dl Hct (37.0-47.0) % MCV (80.0-100.0) fL MCH (25.0-34.0) pg MCHC (32.0-36.0) g/dL RDW Std Deviation (36.4-46.3) fL RDW Coeff of Troy (11.5-14.5) % Plt Count (130-400) K/uL MPV (9.4-12.4) fL Sodium (136-145) mmol/L Potassium (3.5-5.1) mmol/L Chloride (98-107) mmol/L Carbon Dioxide (21-32) mmol/L Anion Gap (3-11) BUN (6-23) mg/dl Creatinine (0.6-1.2) mg/dl Est Cr Clr Drug Dosing ml/min eGFR BUN/Creatinine Ratio (10-20) Glucose (70-99(Fasting)) mg/dl POC Glucose 112 H 155 H (70-99) mg/dl Calcium (8.6-10.3) mg/dl Phosphorus (2.5-4.9) mg/dl Magnesium (1.7-2.4) mg/dl Hep Bs Antigen Negative (Negative) Hep Bs Antibody Immune Hep Bs Antibody, Quant > 500.00 (>or=10mIU/mL Immune) mIU/mL Medications Administered Current Inpatient Medications Acetaminophen (Acetaminophen 500 Mg Tab) 1,000 mg PO Q8H PRN PRN Reason: MILD Pain (1,2,3) & Pre PT Stop: 09/24/24 17:46 Last Admin: 08/25/24 22:26 Dose: 1,000 mg Atorvastatin Calcium (Atorvastatin 40 Mg Tab) 80 mg PO HS MICKY Stop: 09/24/24 20:59 Last Admin: 08/26/24 22:11 Dose: 80 mg Bisacodyl (Bisacodyl 10 Mg Supp) 10 mg PA DAILY PRN PRN Reason: Constipation Stop: 09/24/24 17:46 Brimonidine Tartrate (Brimonidine Tartrate-P 0.15% 5 Ml Btl) 1 drops OPR Q12 MICKY Stop: 09/24/24 20:59 Last Admin: 08/27/24 09:54 Dose: 1 drops Carvedilol (Carvedilol 6.25 Mg Tab) 6.25 mg PO HS MICKY Stop: 09/24/24 20:59 Last Admin: 08/26/24 22:11 Dose: 6.25 mg Clonidine HCl (Clonidine Hcl 0.1 Mg Tab) 0.1 mg PO HS MICKY Stop: 09/24/24 20:59 Last Admin: 08/26/24 22:12 Dose: 0.1 mg Dextrose (Dextrose 50% 50 Ml Syringe) 25 - 50 ml IV UD PRN; Protocol PRN Reason: Hypoglycemia Protocol Stop: 09/24/24 18:18 Diphenhydramine HCl (Diphenhydramine Capsule 25 Mg Cap) 25 mg PO Q6H PRN PRN Reason: Allergic Rhinitis/Insomnia Stop: 09/24/24 17:46 Last Admin: 08/27/24 07:21 Dose: 25 mg Dorzolamide HCl (Dorzolamide Hcl 2% Oph Soln 10 Ml Btl) 1 drops OPR Q12 MICKY Stop: 09/24/24 20:59 Last Admin: 08/27/24 09:54 Dose: 1 drops Famotidine (Famotidine 20 Mg Tab) 20 mg PO Q12H PRN PRN Reason: Dyspepsia Stop: 09/24/24 17:46 Furosemide (Furosemide 40 Mg Tab) 40 mg PO QAM MICKY Stop: 09/25/24 08:59 Last Admin: 08/27/24 09:58 Dose: Not Given Glucagon (Glucagon For Inj 1 Mg Vial) 1 mg SQ UD PRN; Protocol PRN Reason: Hypoglycemia Protocol Stop: 09/24/24 18:18 Glucose (Glucose 40% Gel 15 Gm Tube) 15 - 30 gm PO UD PRN; Protocol PRN Reason: Hypoglycemia Protocol Stop: 09/24/24 18:18 Glucose (Glucose 10 Tab/Tube) 4 - 8 tab PO UD PRN; Protocol PRN Reason: Hypoglycemia Protocol Stop: 09/24/24 18:18 Hydralazine HCl (Hydralazine Hcl 25 Mg Tab) 25 mg PO HS MICKY Stop: 09/24/24 20:59 Last Admin: 08/26/24 22:12 Dose: 25 mg Hydromorphone HCl (Hydromorphone Inj 0.5 Mg/0.5 Ml Syr) 0.5 mg IV Q3H PRN PRN Reason: MODERATE Pain(4,5,6)/Pre PT Stop: 09/08/24 17:46 Last Admin: 08/26/24 06:02 Dose: 0.5 mg Hydromorphone HCl (Hydromorphone Inj 1 Mg/Ml Syringe) 1 mg IV Q3H PRN PRN Reason: SEVERE Pain (7,8,9,10) Stop: 09/08/24 17:46 Hydroxyzine HCl (Hydroxyzine Hcl 25 Mg Tab) 25 mg PO Q8H PRN PRN Reason: Anxiety Stop: 09/24/24 17:46 Promethazine HCl (Phenergan) 12.5 mg in 50.5 mls @ 202 mls/hr IV Q6H PRN PRN Reason: Nausea And Vomiting Stop: 09/24/24 17:46 Influenza Virus Vaccine Quadrival (Do Not Administer Flu Vaccine) 1 each N/A PRN PRN PRN Reason: Notification Stop: 09/24/24 17:46 Insulin Aspart (Insulin Aspart Per Unit Charge) 0 units SC [facility] Stop: 09/24/24 18:29 Last Admin: 08/27/24 09:11 Dose: 1 units Insulin Glargine (Lantus Per Unit Charge) 0 units SC HS [facility]; Protocol Stop: 09/25/24 20:59 Last Admin: 08/26/24 22:19 Dose: 30 units Lorazepam (Lorazepam 0.5 Mg Tab) 0.5 mg PO Q8H PRN PRN Reason: Sedation/Anxiety Stop: 09/24/24 17:46 Lorazepam (Lorazepam 2 Mg/1 Ml Vial) 0.5 mg IV Q8H PRN PRN Reason: Sedation/Anxiety Stop: 09/24/24 17:46 Metoclopramide HCl (Metoclopramide Hcl Inj 5 Mg/Ml 2 Ml Vial) 10 mg IV Q6H PRN PRN Reason: Nausea &/or Vomiting Stop: 09/24/24 17:46 Miscellaneous (Remove Nitro-Dur Patch) 1 each N/A DAILY@2100 [facility] Stop: 09/24/24 20:59 Last Admin: 08/26/24 22:12 Dose: 1 each Miscellaneous (Carbohydrates For Hypoglycemia ) 15 - 30 gm PO UD PRN PRN Reason: Hypoglycemia Protocol Stop: 09/24/24 18:18 Miscellaneous Information (Pharmacy Glycemic Mgmt Consult) 1 each N/A UD PRN PRN Reason: Consult Stop: 09/24/24 17:46 Naloxone HCl (Naloxone Hcl 0.4 Mg/1 Ml Vial/Carp) 0.1 mg IV Q5M PRN PRN Reason: Oversedation/Resp depression Stop: 09/24/24 17:46 Nitroglycerin (Nitroglycerin Sl 0.4 Mg/Tab Tab) 0.4 mg SL Q5M PRN PRN Reason: Chest Pain Stop: 09/24/24 17:46 Nitroglycerin (Nitroglycerin 0.4 Mg/Hr Patch) 1 patch TD DAILY [facility] Stop: 09/25/24 08:59 Last Admin: 08/27/24 09:58 Dose: Not Given Ondansetron HCl (Ondansetron Inj 2 Mg/Ml 2 Ml Vial) 4 mg IV Q6H PRN PRN Reason: Nausea &/or Vomiting Stop: 09/24/24 17:46 Ondansetron HCl (Ondansetron 4 Mg Od Tab) 4 mg PO Q6H PRN PRN Reason: Nausea Stop: 09/24/24 17:46 Oxycodone HCl (Oxycodone Hcl Ir 5 Mg Tab (Immediate Release)) 5 - 10 mg PO Q4H PRN PRN Reason: MOD/SEV Pain & Pre PT Stop: 09/08/24 17:46 Pneumococcal Polyvalent Vaccine (Do Not Administer Pneumococcal Vaccine) 1 each N/A PRN PRN PRN Reason: Notification Stop: 09/24/24 17:46 Polyethylene Glycol (Polyethylene (Miralax) 17 Gm Pack) 17 gm PO Q6 MICKY Stop: 09/25/24 05:59 Last Admin: 08/27/24 04:48 Dose: Not Given Senna/Docusate Sodium (Docusate Sodium/Senna 50/8.6mg Tab) 2 tab PO HS MICKY Stop: 09/24/24 20:59 Last Admin: 08/26/24 22:18 Dose: 2 tab Sevelamer Carbonate (Sevelamer Carbonate 800 Mg Tab) 2,400 mg PO TIDM MICKY Stop: 09/24/24 17:59 Last Admin: 08/27/24 07:58 Dose: Not Given Sodium Biphosphate/Sodium Phosphate (Sod Phosphate/Sod Biphosphate Enema 132 Ml Btl) 132 ml PA ONE PRN PRN Reason: Constipation Stop: 09/24/24 17:46 Tramadol HCl (Tramadol Hcl 50 Mg Tablet) 50 - 100 mg PO Q4H PRN PRN Reason: MOD/SEV Pain & Pre PT Stop: 09/24/24 17:46 Last Admin: 08/27/24 04:47 Dose: 100 mg Vitamin B Complex (Vitamin B Complex Tab) 1 tab PO HS MICKY Stop: 09/24/24 20:59 Last Admin: 08/26/24 22:13 Dose: 1 tab Vitamin D (Cholecalciferol 25 Mcg (1000 Units) Tab) 100 mcg PO QPM MICKY Stop: 09/24/24 20:59 Last Admin: 08/26/24 22:11 Dose: 100 mcg
--- NOTE | 2024-08-27 17:49 | Nephrology Progress Note ---
Date of Service August 27, 2024 Assessment & Plan (1) ESRD (end stage renal disease) on dialysis: Plan: on MWF HD via [facility]. chemistries acceptable>K 4.1 post HD. -routine HD tomorrow 2 K bath, moderate UF goal given RA, relative hypotension >will ensure BP meds w/ hold parameters > some dose frequencies are unexpected on hydralazine and on coreg and will need reeval w/ consult team -continue binder; won't be stringent right now w/ fluid limit but monitor for need -continue lasix (2) Anemia in ESRD (end-stage renal disease): Plan: hgb 8.0; max dose epo on tx; monitor daily; 400 mL EBL (3) Spinal stenosis: Plan: s/p elective lumbar decompression / fusion L3-L5 on 08/25 > per ortho and primary service Admission and Anticipated Discharge Date Admission Date: August 25, 2024 Subjective delayed note entered for 1130 AM eval. pt feeling well > no uncontrolled pain, no sob, no edema; tolerated HD well Review of Systems 2 Review of Systems: All systems reviewed & are unremarkable except as noted in Subjective Physical Exam 2 Constitutional: well developed (up in chair on RA eating midday meal) and well nourished Eyes: EOM intact bilaterally ENMT: Mouth: + dry oral mucous membranes Respiratory: normal respiratory effort Auscultation: + diminished lung sounds Cardiovascular: Rate/Rhythm: regular rate and regular rhythm Extremities: + edema (trace ble) and + AV fistula Gastrointestinal (Abdomen): Inspection/Auscultation: normal bowel sounds P ercussion/Palpation: abdomen soft; abdomen nontender Musculoskeletal: Extremities: strength 5/5 throughout Skin: no rashes, warm and dry Results & Data Vital Signs (Past 12 Hours) Vital Signs Temp Pulse Pulse Resp BP Pulse Ox O2 Del Method 08/27/24 14:45 36.7 C 67 18 125/68 99 Room Air 08/27/24 09:55 67 16 94/54 L 95 Room Air 08/27/24 07:14 36.9 C 62 16 104/57 L 95 Room Air Laboratory Results 08/27/24 06:41 08/27/24 06:41
[2024-08-27 21:21] VITALS: RESP 16
[2024-08-28] MEDS ORDERED: SODIUM CHLORIDE 0.9% 1,000 ML IV PRN (07:00)
[2024-08-28 07:25] LABS: Hematocrit (blood only) 22.8 % (37.0-47.0); Hemoglobin 7.6 g/dl (12.0-16.0); Mean Corpuscular Hemoglobin 31.4 pg (25.0-34.0); Mean Corpuscular Volume 94.2 fL (80.0-100.0); Platelet Count 112 K/uL (130-400); RDW Standard Deviation 44.2 fL (36.4-46.3); Red Blood Count 2.42 M/uL (4.20-5.40); White Blood Count 6.59 K/ul (4.8-10.8)
[2024-08-28 07:33] LABS: Anion Gap 8.0 (3-11); Blood Urea Nitrogen 41.0 mg/dl (6-23); Calcium 7.9 mg/dl (8.6-10.3); Carbon Dioxide 29.0 mmol/L (21-32); Chloride 94.0 mmol/L (98-107); Creatinine Clr Calc Pharmacy 7.5 ml/min; Glucose 138.0 mg/dl (70-99(Fasting)); Magnesium 2.1 mg/dl (1.7-2.4); Potassium 4.1 mmol/L (3.5-5.1); Sodium 131.0 mmol/L (136-145)
--- NOTE | 2024-08-28 10:05 | Hospitalist Progress Note ---
Date of Service August 28, 2024 Assessment & Plan (1) Two-level lumbosacral spondylosis with radiculopathy: (2) CAD (coronary artery disease): (3) ESRD (end stage renal disease) on dialysis: (4) Diabetes mellitus: Plan This is a 68-year-old female who has a significant medical history of ESRD on HD Saturday, CAD s/p CABG, T2DM, HTN, hx of breast cancer in remission and cirrhosis who presents for elective lumbar procedure by Dr. Hansen. # 2 level lumbar sacral spondylosis with radiculopathy status post lumbar decompression fusion L3-S1, POD #3 pain/wound management per Ortho encourage incentive spirometry monitor hemoglobin, preop 10.2, likely chronic anemia in setting of end-stage renal disease Pt wheel chair bound prior to procedure, since May 10, Goal is to walk again, may need rehab Acute on chronic anemia, post-op, acute blood loss anemia -post op Hgb 8.4, current ~8, pre-op 10.2 - cont. to monitor closely #ESRD on HD [facility] Nephrology consulted for HD needs, last tx was on 08/[address] Calvin, Renal in [place] for HD needs #CAD hx of CABG in 2006, hx of LAD SCOTTIE x [address] Fernandez in [place] on ASA, Statin, Plavix, Lipitor, coreg ASA, Plavix currently on hold - discussed w/ ortho - resuming ASA #HTN chronic, stable on hydralazine, coreg, lasix, clonidine and nitropatch monitor volume status #T2DM pt on higher doses of insulin at home, last a1c 7.7 on 03/03/24, current A1c 5.8% pharmacy consulted for glycemic management #B/L Carotid artery stenosis: continue asa, plavix, outpt cards following #DVT ppx: per primary FULL CODE PCP: Dr. Simone Hawkins, [facility] Dispo: per primary Thank you for this consultation. We will follow the patient with you during their hospital stay. You can reach a member of the [facility] Hospitalist Team 03/09 via hospitalist role on tiger text. Admission and Anticipated Discharge Date Admission Date: August 25, 2024 Subjective Pt seen in follow up of med consult, s/p lumbar surgery Currently lying in bed in NAD Reports some back pain but otherwise has no other complaints Denies any fever, chills, chest pain or shortness of breath, denies abd. pain, n/v Had HD earlier today Plan for DC to rehab tmrw Review of Systems Review of Systems: All systems reviewed & are unremarkable except as noted in Subjective Physical Exam Physical Exam: Gen: WD/WN, NAD, A&O x3. HEENT: Normocephalic, atraumatic, conjunctivae moist, sclerae anicteric, mucous membranes moist. Lung: Clear to Auscultation bilaterally, no wheezes/rales/rhonchi Heart: Regular rate, regular rhythm Abdomen: Soft, NT, ND +BS x 4 Extremities: No edema, LUE fistula Skin: Warm, dry Results & Data Results & Data Vital Signs (Past 12 Hours) Vital Signs Temp Pulse Pulse Pulse Resp BP BP 08/28/24 09:30 36.9 C 61 107/44 L 08/28/24 09:05 36.9 C 64 102/49 L 08/28/24 08:55 36.9 C 64 08/28/24 07:25 36.8 C 67 16 113/66 08/27/24 22:50 Pulse Ox O2 Del Method 08/28/24 09:30 08/28/24 09:05 08/28/24 08:55 08/28/24 07:25 97 Room Air 08/27/24 22:50 Room Air Laboratory Results 08/28/24 08/28/24 08/27/24 Range/Units 07:46 06:29 21:17 WBC 6.59 (4.8-10.8) K/ul RBC 2.42 L (4.20-5.40) M/uL Hgb 7.6 L (12.0-16.0) g/dl Hct 22.8 L (37.0-47.0) % MCV 94.2 D (80.0-100.0) fL MCH 31.4 (25.0-34.0) pg MCHC 33.3 (32.0-36.0) g/dL RDW Std Deviation 44.2 (36.4-46.3) fL RDW Coeff of Troy 12.8 (11.5-14.5) % Plt Count 112 L (130-400) K/uL MPV 10.3 (9.4-12.4) fL Sodium 131 L (136-145) mmol/L Potassium 4.1 (3.5-5.1) mmol/L Chloride 94 L (98-107) mmol/L Carbon Dioxide 29 (21-32) mmol/L Anion Gap 8 (3-11) BUN 41 H (6-23) mg/dl Creatinine 7.11 H* D (0.6-1.2) mg/dl Est Cr Clr Drug Dosing 7.5 ml/min eGFR 5.79 BUN/Creatinine Ratio 5.8 L (10-20) Glucose 138 H (70-99(Fasting)) mg/dl POC Glucose 184 H 154 H (70-99) mg/dl Calcium 7.9 L (8.6-10.3) mg/dl Phosphorus 5.0 H (2.5-4.9) mg/dl Magnesium 2.1 (1.7-2.4) mg/dl 08/27/24 08/27/24 Range/Units 16:10 11:20 WBC (4.8-10.8) K/ul RBC (4.20-5.40) M/uL Hgb (12.0-16.0) g/dl Hct (37.0-47.0) % MCV (80.0-100.0) fL MCH (25.0-34.0) pg MCHC (32.0-36.0) g/dL RDW Std Deviation (36.4-46.3) fL RDW Coeff of [place] (11.5-14.5) % Plt Count (130-400) K/uL MPV (9.4-12.4) fL Sodium (136-145) mmol/L Potassium (3.5-5.1) mmol/L Chloride (98-107) mmol/L Carbon Dioxide (21-32) mmol/L Anion Gap (3-11) BUN (6-23) mg/dl Creatinine (0.6-1.2) mg/dl Est Cr Clr Drug Dosing ml/min eGFR BUN/Creatinine Ratio (10-20) Glucose (70-99(Fasting)) mg/dl POC Glucose 132 H 161 H (70-99) mg/dl Calcium (8.6-10.3) mg/dl Phosphorus (2.5-4.9) mg/dl Magnesium (1.7-2.4) mg/dl Medications Administered Current Inpatient Medications Acetaminophen (Acetaminophen 500 Mg Tab) 1,000 mg PO Q8H PRN PRN Reason: MILD Pain (1,2,3) & Pre PT Stop: 09/24/24 17:46 Last Admin: 08/25/24 22:26 Dose: 1,000 mg Atorvastatin Calcium (Atorvastatin 40 Mg Tab) 80 mg PO HS MICKY Stop: 09/24/24 20:59 Last Admin: 08/27/24 23:07 Dose: 80 mg Bisacodyl (Bisacodyl 10 Mg Supp) 10 mg MS DAILY PRN PRN Reason: Constipation Stop: 09/24/24 17:46 Brimonidine Tartrate (Brimonidine Tartrate-P 0.15% 5 Ml Btl) 1 drops OPR Q12 MICKY Stop: 09/24/24 20:59 Last Admin: 08/28/24 07:54 Dose: 1 drops Carvedilol (Carvedilol 6.25 Mg Tab) 6.25 mg PO HS MICKY Stop: 09/24/24 20:59 Last Admin: 08/27/24 23:08 Dose: 6.25 mg Clonidine HCl (Clonidine Hcl 0.1 Mg Tab) 0.1 mg PO HS MICKY Stop: 09/24/24 20:59 Last Admin: 08/27/24 23:07 Dose: 0.1 mg Dextrose (Dextrose 50% 50 Ml Syringe) 25 - 50 ml IV UD PRN; Protocol PRN Reason: Hypoglycemia Protocol Stop: 09/24/24 18:18 Diphenhydramine HCl (Diphenhydramine Capsule 25 Mg Cap) 25 mg PO Q6H PRN PRN Reason: Allergic Rhinitis/Insomnia Stop: 09/24/24 17:46 Last Admin: 08/27/24 07:21 Dose: 25 mg Dorzolamide HCl (Dorzolamide Hcl 2% Oph Soln 10 Ml Btl) 1 drops OPR Q12 MICKY Stop: 09/24/24 20:59 Last Admin: 08/28/24 07:55 Dose: 1 drops Famotidine (Famotidine 20 Mg Tab) 20 mg PO Q12H PRN PRN Reason: Dyspepsia Stop: 09/24/24 17:46 Furosemide (Furosemide 40 Mg Tab) 40 mg PO QAM MICKY Stop: 09/25/24 08:59 Last Admin: 08/28/24 08:05 Dose: Not Given Glucagon (Glucagon For Inj 1 Mg Vial) 1 mg SQ UD PRN; Protocol PRN Reason: Hypoglycemia Protocol Stop: 09/24/24 18:18 Glucose (Glucose 40% Gel 15 Gm Tube) 15 - 30 gm PO UD PRN; Protocol PRN Reason: Hypoglycemia Protocol Stop: 09/24/24 18:18 Glucose (Glucose 10 Tab/Tube) 4 - 8 tab PO UD PRN; Protocol PRN Reason: Hypoglycemia Protocol Stop: 09/24/24 18:18 Hydralazine HCl (Hydralazine Hcl 25 Mg Tab) 25 mg PO HS MICKY Stop: 09/24/24 20:59 Last Admin: 08/27/24 23:06 Dose: 25 mg Hydromorphone HCl (Hydromorphone Inj 0.5 Mg/0.5 Ml Syr) 0.5 mg IV Q3H PRN PRN Reason: MODERATE Pain(4,5,6)/Pre PT Stop: 09/08/24 17:46 Last Admin: 08/26/24 06:02 Dose: 0.5 mg Hydromorphone HCl (Hydromorphone Inj 1 Mg/Ml Syringe) 1 mg IV Q3H PRN PRN Reason: SEVERE Pain (7,8,9,10) Stop: 09/08/24 17:46 Hydroxyzine HCl (Hydroxyzine Hcl 25 Mg Tab) 25 mg PO Q8H PRN PRN Reason: Anxiety Stop: 09/24/24 17:46 Promethazine HCl (Phenergan) 12.5 mg in 50.5 mls @ 202 mls/hr IV Q6H PRN PRN Reason: Nausea And Vomiting Stop: 09/24/24 17:46 Sodium Chloride (Nss) 1,000 mls @ 0 mls/hr IV .Q0M PRN PRN Reason: For Hemodialysis Use ONLY Stop: 08/28/24 12:59 Influenza Virus Vaccine Quadrival (Do Not Administer Flu Vaccine) 1 each N/A PRN PRN PRN Reason: Notification Stop: 09/24/24 17:46 Insulin Aspart (Insulin Aspart Per Unit Charge) 0 units SC ACHS MICKY Stop: 09/24/24 18:29 Last Admin: 08/28/24 08:14 Dose: 11 units Insulin Glargine (Lantus Per Unit Charge) 0 units SC [facility]; Protocol Stop: 09/25/24 20:59 Last Admin: 08/27/24 23:04 Dose: 20 units Lorazepam (Lorazepam 0.5 Mg Tab) 0.5 mg PO Q8H PRN PRN Reason: Sedation/Anxiety Stop: 09/24/24 17:46 Lorazepam (Lorazepam 2 Mg/1 Ml Vial) 0.5 mg IV Q8H PRN PRN Reason: Sedation/Anxiety Stop: 09/24/24 17:46 Metoclopramide HCl (Metoclopramide Hcl Inj 5 Mg/Ml 2 Ml Vial) 10 mg IV Q6H PRN PRN Reason: Nausea &/or Vomiting Stop: 09/24/24 17:46 Miscellaneous (Remove Nitro-Dur Patch) 1 each N/A DAILY@2100 [facility] Stop: 09/24/24 20:59 Last Admin: 08/27/24 22:59 Dose: 1 each Miscellaneous (Carbohydrates For Hypoglycemia ) 15 - 30 gm PO UD PRN PRN Reason: Hypoglycemia Protocol Stop: 09/24/24 18:18 Miscellaneous Information (Pharmacy Glycemic Mgmt Consult) 1 each N/A UD PRN PRN Reason: Consult Stop: 09/24/24 17:46 Naloxone HCl (Naloxone Hcl 0.4 Mg/1 Ml Vial/Carp) 0.1 mg IV Q5M PRN PRN Reason: Oversedation/Resp depression Stop: 09/24/24 17:46 Nitroglycerin (Nitroglycerin Sl 0.4 Mg/Tab Tab) 0.4 mg SL Q5M PRN PRN Reason: Chest Pain Stop: 09/24/24 17:46 Nitroglycerin (Nitroglycerin 0.4 Mg/Hr Patch) 1 patch TD DAILY [facility] Stop: 09/25/24 08:59 Last Admin: 08/28/24 08:19 Dose: Not Given Ondansetron HCl (Ondansetron Inj 2 Mg/Ml 2 Ml Vial) 4 mg IV Q6H PRN PRN Reason: Nausea &/or Vomiting Stop: 09/24/24 17:46 Ondansetron HCl (Ondansetron 4 Mg Od Tab) 4 mg PO Q6H PRN PRN Reason: Nausea Stop: 09/24/24 17:46 Oxycodone HCl (Oxycodone Hcl Ir 5 Mg Tab (Immediate Release)) 5 - 10 mg PO Q4H PRN PRN Reason: MOD/SEV Pain & Pre PT Stop: 09/08/24 17:46 Pneumococcal Polyvalent Vaccine (Do Not Administer Pneumococcal Vaccine) 1 each N/A PRN PRN PRN Reason: Notification Stop: 09/24/24 17:46 Polyethylene Glycol (Polyethylene (Miralax) 17 Gm Pack) 17 gm PO Q6 MICKY Stop: 09/25/24 05:59 Last Admin: 08/28/24 05:38 Dose: 17 gm Senna/Docusate Sodium (Docusate Sodium/Senna 50/8.6mg Tab) 2 tab PO HS MICKY Stop: 09/24/24 20:59 Last Admin: 08/27/24 23:06 Dose: 2 tab Sevelamer Carbonate (Sevelamer Carbonate 800 Mg Tab) 2,400 mg PO TIDM MICKY Stop: 09/24/24 17:59 Last Admin: 08/28/24 07:53 Dose: 2,400 mg Sodium Biphosphate/Sodium Phosphate (Sod Phosphate/Sod Biphosphate Enema 132 Ml Btl) 132 ml MS ONE PRN PRN Reason: Constipation Stop: 09/24/24 17:46 Tramadol HCl (Tramadol Hcl 50 Mg Tablet) 50 - 100 mg PO Q4H PRN PRN Reason: MOD/SEV Pain & Pre PT Stop: 09/24/24 17:46 Last Admin: 08/27/24 23:05 Dose: 100 mg Vitamin B Complex (Vitamin B Complex Tab) 1 tab PO HS MICKY Stop: 09/24/24 20:59 Last Admin: 08/27/24 23:09 Dose: 1 tab Vitamin D (Cholecalciferol 25 Mcg (1000 Units) Tab) 100 mcg PO QPM MICKY Stop: 09/24/24 20:59 Last Admin: 08/27/24 23:08 Dose: 100 mcg
[2024-08-28] MEDS: EPOETIN ALFA 20,000 UNITS/ML VIAL IV ONE (10:42)
--- NOTE | 2024-08-28 10:53 | Dialysis Progress Note ---
Date of Service August 28, 2024 Assessment & Plan Admission and Anticipated Discharge Date Admission Date: August 25, 2024 Subjective Assessment & Plan (1) ESRD (end stage renal disease) on dialysis: Plan: on MWF HD via AVF. chemistries acceptable--na slightly low pre HD. . routine HD today. On 2 K bath, Aim for 3 liters UF goal. -continue binder -continue lasix (2) Anemia in ESRD (end-stage renal disease): Plan: hgb 7.6 now. On max dose epo on tx (3) Spinal stenosis: Plan: s/p elective lumbar decompression / fusion L3-L5 on 08/25 > per ortho and primary service Subjective Seen during dialysis. tolerating fine. NO complaints. AVF fine. BP is good. Review of Systems Review of Systems: All systems reviewed & are unremarkable except as noted in Subjective Physical Exam Constitutional: well developed (up in chair on RA eating midday meal) and well nourished Eyes: EOM intact bilaterally ENMT: Mouth: + dry oral mucous membranes Respiratory: normal respiratory effort Auscultation: + diminished lung sounds Cardiovascular: Rate/Rhythm: regular rate and regular rhythm Extremities: + edema (trace ble) and + AV fistula Gastrointestinal (Abdomen): Inspection/Auscultation: normal bowel sounds Percussion/Palpation: abdomen soft; abdomen nontender Musculoskeletal: Extremities: strength 5/5 throughout Skin: no rashes, warm and dry Results & Data Vital Signs (Past 12 Hours) Vital Signs Temp Pulse Pulse Pulse Resp BP BP 08/28/24 10:30 57 L 113/45 L 08/28/24 10:00 36.9 C 58 L 110/46 L 08/28/24 09:30 36.9 C 61 107/44 L 08/28/24 09:05 36.9 C 64 102/49 L 08/28/24 08:55 36.9 C 64 08/28/24 07:25 36.8 C 67 16 113/66 Pulse Ox O2 Del Method 08/28/24 10:30 08/28/24 10:00 08/28/24 09:30 08/28/24 09:05 08/28/24 08:55 08/28/24 07:25 97 Room Air
[2024-08-28] MEDS: HEPARIN SOD (PORCINE) 1000 UNIT/ML IV ONE (12:46)
[2024-08-28] MEDS: HEPARIN SOD (PORCINE) 1000 UNIT/ML IV SCH (12:47)
--- NOTE | 2024-08-28 14:05 | Pharmacy Report ---
Pharmacy Glycemic Short Note 2 - Date of Service August 28, 2024 - Glycemic Short BSG Results (Last 24 hours): 08/27/24 08/27/24 08/28/24 16:10 21:17 06:29 Glucose 138 H POC Glucose 132 H 154 H 08/28/24 08/28/24 07:46 13:45 Glucose POC Glucose 184 H 101 H OUTPATIENT ANTIDIABETIC REGIMEN: * Humalog 35 units SQ BID * Basaglar 44 units SQ HS (on fill history) * Patient's A1c = 7.7% 03/03/24. * However, this result is likely somewhat unreliable in ESRD patients d/t interactions between the A1c analyzing technique and high levels of urea in ESRD, reduced RBC life span, iron deficiency anemia, and EPO administration. HbA1c > 7.5% in ESRD patient may overestimate the extent of hyperglycemia in ESRD patients. ASSESSMENT: 08/28: * Arely received 39 units of insulin yesterday (20 were basal) * Fasting BSG this AM acceptable, slight adjustments to basal scale * NovoLog loosened yesterday as steroid effects weaned off, will continue at this time. * HD today, no other glycemic stressors noted. 08/26: * Arely is a 68 year old female admitted status post spinal decompression/fusion with a history of type 2 diabetes mellitus and end stage renal disease on hemodialysis MWF. Pharmacy has been consulted to assist with glycemic management while inpatient. * Preoperative BSG within goal, received dexamethasone 8mg IV preoperatively, BSGs significantly increased to 299 at dinner. Basal insulin at ~0.4units/kg x1 ordered to help cover steroid induced hyperglycemia. Will order HS Lantus at reduced doses based on BSG this evening. * NovoLog at a weight based stress of 3, will reduce this afternoon due to no ongoing steroids. PLAN FOR INPATIENT GLYCEMIC CONTROL: * Hold outpatient oral diabetes medications * Basal insulin * Lantus 20-30 SQ HS (see eMAR for additional details) * Bolus insulin * NovoLog per scale ACHS or Q6hrs while NPO * Goal Range: Low 110 mg/dL - High 140 mg/dL * Correction Factor: 20 mg/dL/unit * Nutritional / Prandial insulin per carb ratio of 1 unit per 6 grams CHO consumed
--- NOTE | 2024-08-28 15:03 | Orthopedic Progress Note ---
Date of Service August 28, 2024 Assessment & Plan (1) Two-level lumbosacral spondylosis with radiculopathy: Plan: I have encouraged the patient to get out of bed this evening before after dinner for at least a short walk. Will plan for discharge to rehab tomorrow. Admission and Anticipated Discharge Date Admission Date: August 25, 2024 Subjective Patient's back pain is controlled leg symptoms improved. Physical Exam Physical Exam: Patient has returned from dialysis. She is somewhat fatigued. She is trying to testing. Results & Data Vital Signs (Past 12 Hours) Vital Signs Temp Pulse Pulse Pulse Pulse Resp BP 08/28/24 13:43 36.7 C 61 16 08/28/24 13:04 36.3 C L 59 L 08/28/24 13:00 60 103/44 L 08/28/24 12:30 58 L 107/40 L 08/28/24 12:00 57 L 109/43 L 08/28/24 11:30 56 L 134/43 L 08/28/24 11:00 58 L 121/47 L 08/28/24 10:30 57 L 113/45 L 08/28/24 10:00 36.9 C 58 L 110/46 L 08/28/24 09:30 36.9 C 61 107/44 L 08/28/24 09:05 36.9 C 64 102/49 L 08/28/24 08:55 36.9 C 64 08/28/24 07:25 36.8 C 67 16 BP Pulse Ox O2 Del Method 08/28/24 13:43 120/66 97 Room Air 08/28/24 13:04 129/47 L 08/28/24 13:00 08/28/24 12:30 08/28/24 12:00 08/28/24 11:30 08/28/24 11:00 08/28/24 10:30 08/28/24 10:00 08/28/24 09:30 08/28/24 09:05 08/28/24 08:55 08/28/24 07:25 113/66 97 Room Air Queries Orthopedic Spine Obesity: Yes
[2024-08-28] MEDS: ASPIRIN 81 MG ECTAB PO SCH (17:21)
[2024-08-29 07:04] LABS: Hematocrit (blood only) 23.6 % (37.0-47.0); Hemoglobin 7.8 g/dl (12.0-16.0); Mean Corpuscular Hemoglobin 31.7 pg (25.0-34.0); Mean Corpuscular Volume 95.9 fL (80.0-100.0); Platelet Count 140 K/uL (130-400); RDW Standard Deviation 44.3 fL (36.4-46.3); Red Blood Count 2.46 M/uL (4.20-5.40); White Blood Count 6.71 K/ul (4.8-10.8)
[2024-08-29 07:21] VITALS: BP 100/57; PULSE 65; TEMP 98.1; O2SAT 97
[2024-08-29 07:30] LABS: Creatinine Clr Calc Pharmacy 11.1 ml/min
[2024-08-29 07:31] LABS: Anion Gap 9.0 (3-11); Blood Urea Nitrogen 22.0 mg/dl (6-23); Calcium 8.3 mg/dl (8.6-10.3); Carbon Dioxide 31.0 mmol/L (21-32); Chloride 93.0 mmol/L (98-107); Glucose 101.0 mg/dl (70-99(Fasting)); Magnesium 2.1 mg/dl (1.7-2.4); Potassium 3.9 mmol/L (3.5-5.1); Sodium 133.0 mmol/L (136-145)
--- NOTE | 2024-08-29 08:01 | Discharge Summary ---
Date of Service August 29, 2024 Admission HPI Per Admitting Provider This is a 68-year-old female that presents with chronic persistent back and bilateral leg pain with weakness. After failing course of nonoperative care she is here for surgical intervention. Principal Diagnosis Multilevel lumbar sacral spondylosis with radiculopathy Discharge Data Allergies Allergy/AdvReac Type Severity Reaction Status Date / Time hydrocodone Allergy Unknown Nausea Verified 08/25/24 10:12 naproxen Allergy Unknown Nausea Verified 08/25/24 10:12 gabapentin AdvReac Intermediate Nausea Verified 08/25/24 10:12 Consultations 08/25/24 17:47 Consult Hospitalist Routine 08/25/24 18:20 Consult Nephrology Routine Procedures Performed Operation Date: 08/25/24 11:45 Actual Procedures p L3-L5 Decompression and Fusion - Dexter Hansen DO Ordered Studies 08/25/24 11:45 FL lumbar spine 2-3V Routine Hospital Course (1) Two-level lumbosacral spondylosis with radiculopathy: Patient went multilevel lumbar decompression fusion tolerated this well was taken to orthopedic for postoperative. Post ablation progressed appropriately SHIRA drain decreasing. Tolerating physical therapy. Pain controlled. Subsidy discharged to rehab. Discharge orders and instructions found in the chart for further review. Total Time Total Time Spent Total Time Spent (In Minutes): 20 minutes Discharge Plan Discharge Items Patient Disposition: Transfer Inpatient Rehab Fac Reason For Visit: Bilateral Leg Weakness, Two-Level Lumbosacral Spon Discharge Diagnosis: Lumbar spondylosis with radiculopathy Activity: As commented below Non-emergency contact: Primary Care Provider Call non-emergency contact if: you have any medication questions Follow-up/Referrals: PCP,NO [Physician] - Diet: Regular Addtl Attending Provider Instructions: ACTIVITY RECOMMENDATIONS: SELF CARE INSTRUCTIONS AFTER THORACIC/LUMBAR FUSIONS 1. You may walk to your tolerance. It is good exercise for your legs and back. Expect some back and intermittent leg aches and pains. 2. You may perform "counter-top" level activities (make a sandwich, dane with a project, etc.). 3. No bending or lifting of more than 10 pounds or back twisting of any nature (roll like a log when turning in bed). 4. You may ride in a car for 20-30 minutes at a time. No driving until after your first visit with your doctor. 5. Frequent changes of position and restricting sitting to 30 minutes at a time will help limit the amount of back spasms and stiffness you may experience. 6. You may discontinue the use of ambulatory aids (cane, crutches, etc.) once your strength and confidence allow. 7. You may information technology security manager the shower and let water strike your incision when you arrive home at least once daily. Do not take a tub bath, sit in a hot tub or go into a swimming pool until after your first recheck in the office. 8. You may resume previous diet. SPECIAL CARE INSTRUCTIONS: VERY IMPORTANT TO READ AND REVIEW A. Your surgical incision has been closed with a cosmetic suture under the skin that will dissolve in about 6 weeks. In 14 days, you can use a pair of clean scissors and cut the suture that is left outside of the skin at the ends of your incision. 1. The small skin tapes can be removed 7 days after surgery if they have not fallen off by that point. 2. You may keep the wound open to air as much as possible to promote healing after post-op day number 5 unless told otherwise by your doctor. 3. If you think the wound looks like it is becoming infected (redness or worsening drainage) and/or you are experiencing fever, chill or worsening back pain and muscle spasms, contact the office so that we may ev aluate you as soon as possible. B. Complications are uncommon, but please contact us if you have any signs or symptoms of: 1. wound infection (fever higher than 102.5 degrees F, redness, separation of wound, drainage, or increasing pain from the incision) 2. blood clots in legs (pain, swelling, redness and warmth in legs) 3. urinary tract infection (fever higher than 102.5 degrees F, burning upon urination or increased frequency of urination) 4. nerve problems (inability to walk on your toes or heels, numbness, loss of bowel or bladder control) 5. any other symptoms that concern you C. Please call the office at if you have any concerns or questions about your operation or recovery. D. No smoking! Smoking drastically decreases the chance of a solid fusion. E. Do not take any anti-inflammatory medications (Indocin, Advil, Motrin, A spirin, Naprosyn, etc.) as these may inhibit the chance of a solid fusion. Tylenol is okay to take for pain. MANAGING PAIN AFTER SPINAL SURGERY 1. Narcotic medication is intended for short-term use and will be provided for surgical pain. Surgical pain usually lasts for a period of 4-6 weeks. Narcotic medication includes Percocet, Vicodin, Darvocet, Tylenol #3 or Lortab. 2. Longer-term pain is more appropriately treated with non-narcotic medication such as Tylenol ES. 3. Muscle spasm is not appropriately treated with narcotics. Muscle relaxers such as Soma, Flexeril or Skelaxin can be used along with Tylenol ES. 4. Remember that we all live with some "aches and pains". This is not unusual or uncommon after an injury or as we get older. a. Back pain is expected and may include muscle spasms for 4 to 6 weeks after surgery. The pain should gradually improve. If the pain worsens for no apparent reason, please contact the office. b. Intermittent leg pain may also be experienced and should not be concerned about unless it worsens for no apparent reason. If so, please contact the office. 5. We will provide appropriate medication within the normal guidelines of their prescribed use. We will also be very cautious and aware of potential abuse and extended duration of patients' medication needs. a. Pain medications are for your comfort and to assist with sleep and rest so that the tissue can heal. They are not provided in order to return to normal activity and should not be used through the day. To do so or worsening pain at night can result from ongoing tissue damage and development of tolerance to the prescribed medicine. 6. Please allow 2-3 days to process refills. Prescriptions will not be mailed but must be picked up at the office. FOLLOW UP VISIT: Keep your scheduled follow-up appointment. Any questions, please call the office at . Pending Studies at Discharge: No Stand-Alone Forms: [employer] Skilled Items Patient informed of condition?: Yes DNR: No Discharge Level of Care: Acute rehab Communicable Disease: No Discharge Prognosis: Improving Lines: None Urinary Catheter: No Medications and DC Order Prescriptions: New tramadol 50 mg tablet 50 mg PO Q6H PRN (Reason: pain, moderate) Qty: 30 0RF oxycodone 5 mg tablet 5 mg PO Q6H PRN (Reason: pain) Qty: 30 0RF Continued furosemide [Lasix] 40 mg Tablet 40 mg PO QAM atorvastatin [Lipitor] 80 mg Tablet 80 mg PO HS clonidine HCl 0.1 mg Tablet 0.1 mg PO HS carvedilol 6.25 mg Tablet 6.25 mg PO HS Rx Instructions: must administer with a meal/food hydralazine 25 mg Tablet 25 mg PO HS clopidogrel [Plavix] 75 mg Tablet 75 mg PO QAM nitroglycerin [Nitro-Patch] 0.4 mg/hr Patch 24 Hour 1 patch TRANSDERMAL DAILY Rx Instructions: allow nitrate-free interval of approx. 10-12 hrs per 24-hour period nitroglycerin 0.4 mg Tablet, Sublingual 0.4 mg sublingual UD PRN (Reason: Chest Pain) lactulose 20 gram Packet 20 g PO BID PRN (Reason: Constipation) brimonidine [Alphagan P] 0.15 % Drops 1 drp OPR Q12H vitamin B complex Capsule 1 cap PO HS insulin lispro [Humalog KwikPen Insulin] 100 unit/mL Insulin Pen 35 unit SUBCUT BID Rx Instructions: with breakfast and lunch sevelamer carbonate 800 mg Tablet 2,400 mg PO TID Rx Instructions: must administer with a meal/food Vitamin D3 100 mcg (4,000 unit) Capsule 4,000 unit PO QPM brimonidine-dorzolamide (PF) 0.15-2 % Drops 1 drp ophthalmic (eye) Q12H aspirin 81 mg Tablet 81 mg PO DAILY Discharge Orders: Discharge Order (Routine); Ordered 08/29/24 Ordered By: Dexter Hansen Admission Data Admit Date/Time: 08/25/24 15:30 Attending Provider: Dexter Hansen Admit Provider: Dexter Hansen Primary Care Provider: Sonia Calvin Other Providers: Mellissa Chow; Fatou South
--- NOTE | 2024-08-29 13:29 | Hospitalist Progress Note ---
Date of Service August 29, 2024 Assessment & Plan (1) Two-level lumbosacral spondylosis with radiculopathy: (2) CAD (coronary artery disease): (3) ESRD (end stage renal disease) on dialysis: (4) Diabetes mellitus: Plan This is a 68-year-old female who has a significant medical history of ESRD on HD Saturday, CAD s/p CABG, T2DM, HTN, hx of breast cancer in remission and cirrhosis who presents for elective lumbar procedure by Dr. Hansen. # 2 level lumbar sacral spondylosis with radiculopathy status post lumbar decompression fusion L3-S1 pain/wound management per Ortho encourage incentive spirometry monitor hemoglobin, preop 10.2, likely chronic anemia in setting of end-stage renal disease Pt wheel chair bound prior to procedure, since May 10, Goal is to walk again, may need rehab Acute on chronic anemia, post-op, acute blood loss anemia -post op Hgb 8.4, current ~8 (stable), pre-op 10.2 - cont. to monitor closely #ESRD on HD [facility] Nephrology consulted for HD needs follows with Dr. Calvin, Renal in [place] for HD needs #CAD hx of CABG in 2006, hx of LAD SCOTTIE x [address] Fernandez in [place] on ASA, Statin, Plavix, Lipitor, coreg ASA, Plavix currently on hold - discussed w/ ortho - resumed ASA yesterday #HTN chronic, stable on hydralazine, coreg, lasix, clonidine and nitropatch monitor volume status monitor BP, lasix not given d/t low BP, consider to hold hydralazine if BP coont. to be on lower side #T2DM pt on higher doses of insulin at home, last a1c 7.7 on 03/03/24, current A1c 5.8% pharmacy consulted for glycemic management #B/L Carotid artery stenosis: continue asa, plavix, outpt cards following #DVT ppx: per primary FULL CODE PCP: Dr. Simone Hawkins, [facility] Dispo: per primary Thank you for this consultation. We will follow the patient with you during their hospital stay. You can reach a member of the [facility] Hospitalist Team 03/09 via hospitalist role on tiger text. Admission and Anticipated Discharge Date Admission Date: August 25, 2024 Subjective Pt seen in follow up of med consult, s/p lumbar surgery Currently lying in bed in NAD Reports some back pain but otherwise has no other complaints Denies any fever, chills, chest pain or shortness of breath, denies abd. pain, n/v Plan for DC to rehab Review of Systems Review of Systems: All systems reviewed & are unremarkable except as noted in Subjective Physical Exam Physical Exam: Gen: WD/WN, NAD, A&O x3. HEENT: Normocephalic, atraumatic, conjunctivae moist, sclerae anicteric, mucous membranes moist. Lung: Clear to Auscultation bilaterally, no wheezes/rales/rhonchi Heart: Regular rate, regular rhythm Abdomen: Soft, NT, ND +BS x 4 Extremities: No edema, LUE fistula Skin: Warm, dry Results & Data Results & Data Vital Signs (Past 12 Hours) Vital Signs Temp Pulse Resp BP Pulse Ox O2 Del Method 08/29/24 07:45 Room Air 08/29/24 07:18 36.7 C 65 16 100/57 L 97 Room Air Laboratory Results 08/29/24 08/29/24 08/29/24 Range/Units 11:58 07:46 06:13 WBC 6.71 (4.8-10.8) K/ul RBC 2.46 L (4.20-5.40) M/uL Hgb 7.8 L (12.0-16.0) g/dl Hct 23.6 L (37.0-47.0) % MCV 95.9 (80.0-100.0) fL MCH 31.7 (25.0-34.0) pg MCHC 33.1 (32.0-36.0) g/dL RDW Std Deviation 44.3 (36.4-46.3) fL RDW Coeff of [place] 12.8 (11.5-14.5) % Plt Count 140 (130-400) K/uL MPV 10.5 (9.4-12.4) fL Sodium 133 L (136-145) mmol/L Potassium 3.9 (3.5-5.1) mmol/L Chloride 93 L (98-107) mmol/L Carbon Dioxide 31 (21-32) mmol/L Anion Gap 9 (3-11) BUN 22 (6-23) mg/dl Creatinine 4.79 H* D (0.6-1.2) mg/dl Est Cr Clr Drug Dosing 11.1 ml/min eGFR 9.31 BUN/Creatinine Ratio 4.6 L (10-20) Glucose 101 H (70-99(Fasting)) mg/dl POC Glucose 155 H 106 H (70-99) mg/dl Calcium 8.3 L (8.6-10.3) mg/dl Magnesium 2.1 (1.7-2.4) mg/dl 08/28/24 08/28/24 08/28/24 Range/Units 20:23 16:38 13:45 WBC (4.8-10.8) K/ul RBC (4.20-5.40) M/uL Hgb (12.0-16.0) g/dl Hct (37.0-47.0) % MCV (80.0-100.0) fL MCH (25.0-34.0) pg MCHC (32.0-36.0) g/dL RDW Std Deviation (36.4-46.3) fL RDW Coeff of [place] (11.5-14.5) % Plt Count (130-400) K/uL MPV (9.4-12.4) fL Sodium (136-145) mmol/L Potassium (3.5-5.1) mmol/L Chloride (98-107) mmol/L Carbon Dioxide (21-32) mmol/L Anion Gap (3-11) BUN (6-23) mg/dl Creatinine (0.6-1.2) mg/dl Est Cr Clr Drug Dosing ml/min eGFR BUN/Creatinine Ratio (10-20) Glucose (70-99(Fasting)) mg/dl POC Glucose 161 H 162 H 101 H (70-99) mg/dl Calcium (8.6-10.3) mg/dl Magnesium (1.7-2.4) mg/dl
== END 2024-08-29 13:17 | DRG 426 ==
LOC: ASU 09:19 → 3E 15:30

== ENCOUNTER 2024-11-02 22:55 | Inpatient (IN) ==
[2024-11-03] MEDS ORDERED: CARBOHYDRATES FOR HYPOGLYCEMIA PO PRN (01:00)
[2024-11-03] MEDS ORDERED: GLUCOSE 10 TAB/TUBE PO PRN (01:00)
[2024-11-03] MEDS ORDERED: GLUCOSE 40% GEL 15 GM TUBE PO PRN (01:00)
[2024-11-03] MEDS ORDERED: DEXTROSE 50% 50 ML SYRINGE IV PRN (01:00)
[2024-11-03] MEDS ORDERED: GLUCAGON FOR INJ 1 MG VIAL SQ PRN (01:00)
[2024-11-03] MEDS ORDERED: PROMETHAZINE 6.25 MG/50.25 ML BAG IV PRN (01:02)
[2024-11-03] MEDS ORDERED: HYDROmorphone INJ 0.5 MG/0.5 ML SYR IV PRN (01:02)
[2024-11-03] MEDS ORDERED: BRIMONIDINE OP SCH (02:15)
[2024-11-03] MEDS ORDERED: DORZOLAMIDE OP SCH (02:15)
--- NOTE | 2024-11-03 02:27 | History & Physical Report ---
Date of Service November 03, 2024 Assessment & Plan (1) Asymptomatic hypertensive urgency: Plan: Assessment and plan below following discussion of case with ED provider and reviewing patient history/pertinent normal/abnormal diagnostic test results. Hypertensive urgency Secondary to back pain Recent surgery (08/2024) Outpatient MRI showed fluid collection, high-grade canal stenosis, acute/subacute fracture Patient not septic. hx CAD status post CABG/PVD hyperlipidemia, on statin Rx ESRD on HD (MWF)/NAFLD cirrhosis,, some signs of fluid overload on outpatient imaging DM 2 insulin requiring, well-controlled as of recent hemoglobin A1c of 5.92 months ago breast cancer status post surgery/radiation on Arimidex, in remission giant cell arteritis as per records, currently not on maintenance medications chronic anemia, hemoglobin improved. past tobacco abuse Admit to med/tele IV hydralazine 1 dose now Facilitate nighttime BP meds Orthopedic spine consult re: postop back pain ([facility] provider already in touch with [facility]HARI who recommended [facility] admission under medical service.) N.p.o. in anticipation of procedure Hold antiplatelet Rx for now Nephrology consult re: dialysis management Basal bolus insulin adjusted for n.p.o. status, ISS BG goal 110-140 DVT prophylaxis. SCDs re: possible procedure Full code Text document was generated using [employer] voice recognition software. It may contain grammatical or spelling errors. Kindly contact undersigned for clarification of any documentation item in question. History of Present Illness Chief Complaint: Back pain Primary Care Provider: Dr. Burton History obtained from patient and records. Medical history significant for CAD status post CABG/stent, PVD, hypertension, hyperlipidemia, ESRD on HD (MWF), NAFLD cirrhosis, GERD, DM 2 insulin requiring, breast cancer status post surgery/radiation on Arimidex, giant cell arteritis as per records, LSS status post surgery ([facility], 08/2024), chronic anemia, anxiety/mood disorder, past tobacco abuse. Last confinement August 2024 under Orthopedics spine service for lumbar radiculopathy status post decompression surgery. Hemoglobin 7.8 at time of discharge. Patient discharged to rehab before transitioning home. Patient noted low back pain going to the left left leg in the last week. No trauma, no fever, no chills. No incontinence symptoms. Pain worse on standing up. Patient consulted [facility] ER for evaluation yesterday. She missed outpatient dialysis because of pain. SBP 210s upon arrival at the ER as per ED provider. Patient denies headache, chest pain, SOB. Hemoglobin 11, hematocrit 36, WBC 4.8, platelets 184. Serum sodium 139, potassium 3.7, chloride 102, BUN 24, BUN 35, creatinine 6.87, glucose 118 CT abdomen pelvis showed nonspecific multinodular appearance left adrenal gland of certain significance. Fecal filled distended rectum. No abdominal or pelvic mass adenopathy or acute inflammatory change. Bilateral pleural effusions greater on the right side than the left. Postop changes lumbar spine without fracture. MRI lumbar spine showed postsurgical collection laminectomy bed showing improvement from September 04. High-grade canal stenosis at level L2-L3. No acute hardware complications detected by MRI technique. Acute/subacute fracture at the anterior inferior endplate of the L2 vertebral body. Morphology of fracture suggest insufficiency fracture. Patient sent to [facility] for direct admission after coordinating with patient's [facility] surgeon. SBP 220s upon arrival at the floor. Medical History as above Surgical History : CABG, cataract surgeries, cholecystectomy, KRISTEN, breast lumpectomy, fistula surgery, back surgery Family History : Colon cancer, DM, heart disease Personal/Social history : Past tobacco abuse, no EtOH intake, retired from factory work Allergies Allergy/AdvReac Type Severity Reaction Status Date / Time hydrocodone Allergy Unknown Nausea Verified 08/25/24 10:12 naproxen Allergy Unknown Nausea Verified 08/25/24 10:12 gabapentin AdvReac Intermediate Nausea Verified 08/25/24 10:12 ranolazine [From Ranexa] AdvReac Intermediate muscle Verified 11/03/24 08:02 spasm Home Medications Medication Instructions Recorded Confirmed Type atorvastatin 80 mg tablet (Lipitor) 80 mg PO HS 07/08/24 11/03/24 History brimonidine 0.15 % eye drops 1 drp OPR Q12H 07/08/24 11/03/24 History (Alphagan P) carvedilol 6.25 mg tablet 6.25 mg PO HS 07/08/24 11/03/24 History cholecalciferol (vitamin D3) 100 4,000 unit PO QPM 07/08/24 11/03/24 History mcg (4,000 unit) capsule clonidine HCl 0.1 mg tablet 0.1 mg PO HS 07/08/24 11/03/24 History clopidogrel 75 mg tablet (Plavix) 75 mg PO QAM 07/08/24 11/03/24 History furosemide 40 mg tablet (Lasix) 40 mg PO QAM 07/08/24 11/03/24 History hydralazine 25 mg tablet 25 mg PO HS 07/08/24 11/03/24 History insulin lispro 100 unit/mL 35 unit subcut BID 07/08/24 11/03/24 History subcutaneous pen (Humalog KwikPen (U-100) Insulin) lactulose 20 gram oral packet 30 g PO BID PRN Constipation 07/08/24 11/03/24 History nitroglycerin 0.4 mg sublingual 0.4 mg sublingual UD PRN Chest Pain 07/08/24 11/03/24 History tablet nitroglycerin 0.4 mg/hr 1 patch transdermal DAILY 07/08/24 11/03/24 History transdermal 24 hour patch sevelamer carbonate 800 mg tablet 2,400 mg PO TID 07/08/24 11/03/24 History vitamin B complex 1 cap PO HS 07/08/24 11/03/24 History aspirin 81 mg tablet 81 mg PO DAILY 08/25/24 11/03/24 History tramadol 50 mg tablet 50 mg PO Q6H PRN pain, moderate 08/26/24 11/03/24 Rx #30 tabs anastrozole 1 mg tablet 1 mg PO DAILY 11/03/24 11/03/24 History dorzolamide 2 % eye drops 1 drp OPR BID 11/03/24 11/03/24 History Past Med/Surg History Problem List (Updated 11/03/24 @ 05:49 by Rashaad Leblanc MD) Asymptomatic hypertensive urgency Anemia in ESRD (end-stage renal disease) Two-level lumbosacral spondylosis with radiculopathy Medical History Aortic stenosis mild Potential difficult intubation on pre-intubation airway assessment limited cervical spine ROM, cervical spine MRI planned by Dr. Hansen/not yet scheduled Mitral regurgitation mild-moderate History of blood transfusion (~1979) miscarriage Tremor intermittent upper extremities when using arms to assist stand up-patient states Dr. Hansen plans to order cervical MRI for these symptoms. Denies change or worsening since seeing his clinic. Denies neck pain. CAD (coronary artery disease) CABG x 2 2006 and 1 stent in 2021 Hx of Clostridium difficile infection (2020) treated at [facility] Difficult intravenous access reports having IV's placed in feet in past Arthritis Spinal stenosis ESRD (end stage renal disease) on dialysis HD at [facility] in [place]- - follows with dr. glez, neph in [place] Limb alert care status left- AV Fistula right- right breast lumpectomy and lymph node removal- states ok for BP on lower right arm and wants IV right hand or foot History of right breast cancer (2021) lumpectomy and xrt Hypertension controlled, stable per pt Diabetes mellitus IDDM Hx of colonic polyps Hemodialysis patient x 3 years, [facility] in [place]- - follows with dr. 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 Beliefs That Will Affect Care: None Current Living Situation: Family Other Information That Helps Us Care for You: No Feels Safe at Home: Yes Safety Concerns: Feels Safe At This Time Assistive Devices: Cane, Denture - Upper, Denture - Lower, Glasses and Walker Review of Systems Review of Systems: As per HPI, all other systems reviewed and negative Physical Exam Physical Exam: GENERAL: Comfortable, pleasant, obese, no respiratory distress SKIN: Sallow, warm HEENT: Pale palpebral conjunctivae, no ptosis, dry buccal mucosa NECK : Supple, short neck, no tenderness CHEST : Decreased breath sounds, no tenderness HEART : RRR, systolic murmur murmurs ABDOMEN: Some distention, nontender BACK : Low back tenderness, limited SLR left EXTREMITIES : Chronic bilateral LE swelling without tenderness, palpable pulses, no other conspicuous deformities noted NEUROLOGIC : Coherent, no facial asymmetry, no other gross focality Results & Data Results & Data Vital Signs (Past 12 Hours) Vital Signs Pulse 66 11/03/24 01:22
[2024-11-03] MEDS: INSULIN ASPART PER UNIT CHARGE SC SCH ×2 (02:44→17:59)
[2024-11-03] MEDS: Patient's HEIGHT &/or WEIGHT Needed ONE (04:05)
[2024-11-03 07:21] LABS: Hematocrit (blood only) 32.0 % (37.0-47.0); Hemoglobin 10.5 g/dl (12.0-16.0); Immature Granulocytes # (auto) 0.01 K/uL (0.01-0.20); Immature Granulocytes % (auto) 0.3 %; Mean Corpuscular Hemoglobin 32.6 pg (25.0-34.0); Mean Corpuscular Volume 99.4 fL (80.0-100.0); Platelet Count 142 K/uL (130-400); RDW Standard Deviation 50.4 fL (36.4-46.3); Red Blood Count 3.22 M/uL (4.20-5.40); White Blood Count 3.29 K/ul (4.8-10.8)
[2024-11-03 07:44] LABS: Anion Gap 10.0 (3-11); Blood Urea Nitrogen 44.0 mg/dl (6-23); Calcium 8.3 mg/dl (8.6-10.3); Carbon Dioxide 25.0 mmol/L (21-32); Chloride 104.0 mmol/L (98-107); Creatinine Clr Calc Pharmacy 7.0 ml/min; Glucose 178.0 mg/dl (70-99(Fasting)); Magnesium 2.3 mg/dl (1.7-2.4); Potassium 3.8 mmol/L (3.5-5.1); Sodium 139.0 mmol/L (136-145)
[2024-11-03] MEDS: SEVELAMER CARBONATE 800 MG TAB PO SCH (08:21)
[2024-11-03] MEDS: NITROGLYCERIN 0.4 MG/HR PATCH TD SCH (08:21)
[2024-11-03] MEDS: BRIMONIDINE TARTRATE-P 0.15% 5 ML BTL OPR SCH (08:23)
[2024-11-03] MEDS: ANASTROZOLE 1 MG TAB PO SCH (08:24)
[2024-11-03] MEDS: LACTULOSE SYRUP 20 GM/30 ML UDC PO PRN (08:24)
[2024-11-03] MEDS: DORZOLAMIDE HCL 2% OPH SOLN 10 ML BTL OPR SCH (08:28)
[2024-11-03] MEDS: LANTUS PER UNIT CHARGE SQ SCH (08:36)
--- NOTE | 2024-11-03 08:39 | Nephrology Consultation ---
Date of Consultation November 03, 2024 Assessment & Plan (1) ESRD (end stage renal disease) on dialysis: For routine HD today using AVF > target 3.5 L fluid removal Next HD tomorrow per routine pain meds appropriate for ESRD continue binders when taking po > recommend also 1.5L FR (2) Asymptomatic hypertensive urgency: likely multifactorial d/t missed HD and uncontrolled pain -continue current meds > coreg; do note that hydralazine and clonidine are rather atypically dosed though this reflects OP documented meds >> will need to verify w/ pt that this is truly how she takes them -HD w/ target UF 3.5 L today should also help HTN (3) Acute on chronic low back pain: with hx of falls x 2 and acute/subacute fracture on MRI > per ortho and primary service History of Present Illness Reason for Consultation: missed dialysis Requesting Physician: Dr Leblanc Attending Physician: Nicko Leyva, DO History of Present Illness 69 y/o F whom I'm asked to see for missed HD was admitted overnight for hypertensive urgency and back pain after presenting with uncontrolled back pain radiating down L leg starting last week s/p lumbar surgery here in August. PMH includes ESRD on MWF HD via AVF, CAD, DM2, BL carotid artery stenosis, HTN, 2021 lumpectomy for Breast CA. On 08/25/24 she underwent L3-L5 decompression and fusion and was d/c 08/29 after uneventful procedure to IP rehab. also reports 2 falls > one Oct 23 outside of dialysis and another fall a week or 2 before > states legs "just gave out" both times. Last HD was 10/30; does not routinely miss txs. Went to [facility] [place] yesterday d/t pain issues and missed OP HD d/t pain. CT a/p OSH showed no fracture but MRI L spine showed subacute/acute endplate L2 vertebral body fracture; pt sent here for direct admission. SBP 220s on arrival here. This am pain is better controlled. no sob, no n/v, no confusion, no edema, no cough, no diarrhea, no new focal numbness/weakness. no new or worrisome voiding complaints. Allergies Allergy/AdvReac Type Severity Reaction Status Date / Time hydrocodone Allergy Unknown Nausea Verified 08/25/24 10:12 naproxen Allergy Unknown Nausea Verified 08/25/24 10:12 gabapentin AdvReac Intermediate Nausea Verified 08/25/24 10:12 ranolazine [From Ranexa] AdvReac Intermediate muscle Verified 11/03/24 08:02 spasm Home Medications Medication Instructions Recorded Confirmed Type atorvastatin 80 mg tablet (Lipitor) 80 mg PO HS 07/08/24 11/03/24 History brimonidine 0.15 % eye drops 1 drp OPR Q12H 07/08/24 11/03/24 History (Alphagan P) carvedilol 6.25 mg tablet 6.25 mg PO HS 07/08/24 11/03/24 History cholecalciferol (vitamin D3) 100 4,000 unit PO QPM 07/08/24 11/03/24 History mcg (4,000 unit) capsule clonidine HCl 0.1 mg tablet 0.1 mg PO HS 07/08/24 11/03/24 History clopidogrel 75 mg tablet (Plavix) 75 mg PO QAM 07/08/24 11/03/24 History furosemide 40 mg tablet (Lasix) 40 mg PO QAM 07/08/24 11/03/24 History hydralazine 25 mg tablet 25 mg PO HS 07/08/24 11/03/24 History insulin lispro 100 unit/mL 35 unit subcut BID 07/08/24 11/03/24 History subcutaneous pen (Humalog KwikPen (U-100) Insulin) lactulose 20 gram oral packet 30 g PO BID PRN Constipation 07/08/24 11/03/24 History nitroglycerin 0.4 mg sublingual 0.4 mg sublingual UD PRN Chest Pain 07/08/24 11/03/24 History tablet nitroglycerin 0.4 mg/hr 1 patch transdermal DAILY 07/08/24 11/03/24 History transdermal 24 hour patch sevelamer carbonate 800 mg tablet 2,400 mg PO TID 07/08/24 11/03/24 History vitamin B complex 1 cap PO HS 07/08/24 11/03/24 History aspirin 81 mg tablet 81 mg PO DAILY 08/25/24 11/03/24 History tramadol 50 mg tablet 50 mg PO Q6H PRN pain, moderate 08/26/24 11/03/24 Rx #30 tabs anastrozole 1 mg tablet 1 mg PO DAILY 11/03/24 11/03/24 History dorzolamide 2 % eye drops 1 drp OPR BID 11/03/24 11/03/24 History Patient History Medical History Aortic stenosis mild Potential difficult intubation on pre-intubation airway assessment limited cervical spine ROM, cervical spine MRI planned by Dr. Hansen/not yet scheduled Mitral regurgitation mild-moderate History of blood transfusion (~1980) miscarriage Tremor intermittent upper extremities when using arms to assist stand up-patient states Dr. Hansen plans to order cervical MRI for these symptoms. Denies change or worsening since seeing his clinic. Denies neck pain. CAD (coronary artery disease) CABG x 2 2006 and 1 stent in 2021 Hx of Clostridium difficile infection (2020) treated at [facility] Difficult intravenous access reports having IV's placed in feet in past Arthritis Spinal stenosis ESRD (end stage renal disease) on dialysis HD at [facility] - follows with dr. glez, neph in [place] Limb alert care status left- AV Fistula right- right breast lumpectomy and lymph node removal- states ok for BP on lower right arm and wants IV right hand or foot History of right breast cancer (2021) lumpectomy and xrt Hypertension controlled, stable per pt Diabetes mellitus IDDM Hx of colonic polyps Hemodialysis patient x 3 years, [facility] in [facility] - follows with dr. 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 martinez- ~ (1 month) Social History Smoking Status: Former smoker Tobacco Type: Cigarettes Second Hand Exposure: No; Do You Dip or Chew Tobacco: No; Tobacco Cessation Education Requested by Patient: No Hx Alcohol Use: No Hx Substance Use: No Preferred Language: Mozambican Communication Ability: Effective It Administrative Assistant Required: No Beliefs That Will Affect Care: None Current Living Situation: Family Other Information That Helps Us Care for You: No Feels Safe at Home: Yes Safety Concerns: Feels Safe At This Time Assistive Devices: Cane, Denture - Upper, Denture - Lower, Glasses and Walker Review of Systems 2 Review of Systems: All systems reviewed & are unremarkable except as noted in HPI & below Physical Exam 2 Constitutional: well developed, well nourished, + obese and cooperative; no acute distress Eyes: EOM intact bilaterally ENMT: Mouth: + dry oral mucous membranes Respiratory: normal respiratory effort Auscultation: + diminished lung sounds Cardiovascular: Rate/Rhythm: regular rate and regular rhythm Heart Sounds: + murmur Extremities: + AV fistula (+t/b) Gastrointestinal (Abdomen): Inspection/Auscultation: normal bowel sounds P ercussion/Palpation: abdomen soft; abdomen nontender Musculoskeletal: Extremities: strength 5/5 throughout Skin: no rashes, warm and dry Neurologic: [place], fluent speech, no tremor Results & Data Vital Signs (Past 12 Hours) Vital Signs Temp Pulse Pulse Resp BP Pulse Ox O2 Del Method 11/03/24 07:50 71 11/03/24 07:42 36.6 C 71 18 162/57 H 97 Room Air 11/03/24 02:51 80 180/67 H 11/03/24 02:03 Room Air 11/03/24 01:52 36.5 C 20 223/71 H 98 Room Air 11/03/24 01:22 66 Laboratory Results 11/03/24 06:10 11/03/24 06:10 Diagnostic Findings OSH Imaging Reports: CT abdomen pelvis showed nonspecific multinodular appearance left adrenal gland of certain significance. Fecal filled distended rectum. No abdominal or pelvic mass adenopathy or acute inflammatory change. Bilateral pleural effusions greater on the right side than the left. Postop changes lumbar spine without fracture. MRI lumbar spine showed postsurgical collection laminectomy bed showing improvement from September 04. High-grade canal stenosis at level L2-L3. No acute hardware complications detected by MRI technique. Acute/subacute fracture at the anterior inferior endplate of the L2 vertebral body. Morphology of fracture suggest insufficiency fracture.
[2024-11-03] MEDS ORDERED: SODIUM CHLORIDE 0.9% 1,000 ML IV PRN (08:40)
--- NOTE | 2024-11-03 09:16 | XRay Report ---
XR lumbar spine 2-3V CLINICAL HISTORY: back pain COMPARISON STUDY: 08/25/2024 FINDINGS: There is prior kyphoplasty at L1. Posterior metallic fusion with interbody devices from L3 through L5 shows no hardware complication. No acute fracture or subluxation. Stable mild diffuse dege nerative changes. IMPRESSION: No acute fracture seen. ACT 112: Negative or not required by law. Electronically signed by: West Baeza M.D. 11/03/2024 9:15 AM
[2024-11-03] MEDS ORDERED: PHARMACY GLYCEMIC MGMT CONSULT PRN (09:31)
--- NOTE | 2024-11-03 09:31 | Hospitalist Progress Note ---
Date of Service November 03, 2024 Assessment & Plan (1) Anemia in ESRD (end-stage renal disease): (2) Two-level lumbosacral spondylosis with radiculopathy: (3) Asymptomatic hypertensive urgency: (4) CAD (coronary artery disease): (5) ESRD (end stage renal disease) on dialysis: (6) Diabetes mellitus: Plan 69F with PMH CAD status post CABG/stent, PVD, hypertension, hyperlipidemia, ESRD on HD (MWF), NAFLD cirrhosis, GERD, DM 2 insulin requiring, breast cancer status post surgery/radiation on Arimidex, giant cell arteritis as per records, LSS status post surgery ([facility], 08/2024), chronic anemia, anxiety/mood disorder, past tobacco abuse who presents with low back pain. #Acute on chronic LBP -Sent from [facility] for surgery evaluation due to worsening back pain -Hx Lumbar spondylosis with radiculopathy -S/p Lumbar decompression/fusion by Dr Hansen on 08/25 Plan -Appreciate surgery input -If surgery is indicated, METS >3, RCRI: 3 (CAD, IDDM, ESRD) -Advise she gets HD prior to any procedures -Otherwise, further testing unlikely to reduce surgical risk. proceed with surgery if indicated -NPO until evaluated by surgery -Pain control -PT/OT #ESRD -HD MWF -Missed HD saturday due to being at [facility] -Nephrology consulted -Will likely get HD today #IDDM -Currently NPO -Current regimen: lantus 5 BID + SSI -Continue to adjust regimen as needed -Pharmacy consult for glycemic control #CAD s/p CABG + stenting -No chest pain. Follows with [facility] cardio in [place] -ASA plavix currently held, resume CONSTANTINE -Continue statin, BB #HTN -Continue coreg, clonidine, hydralazine #Anemia -Hgb improved to 10.5 compared to 7.8 in august -Likely secondary to ESRD -Borderline macrocytic -No s/s acute blood loss -Check folate, B12 as there are no prior labs in system I spent a total of 39 minutes coordinating, documenting, and providing care for this patient excluding time spent in the performance of separately billed services. This included personally reviewing all current laboratories and imaging studies, medical reconciliation, outpatient chart review and discussion with specialists Admission and Anticipated Discharge Date Admission Date: November 03, 2024 Subjective Feeling well today. only complaint is mild LBP. Patient denies F/C, CP, palpitations, SOB, dyspnea, abd pain, N/V/D Results & Data Results & Data Vital Signs (Past 12 Hours) Vital Signs Temp Pulse Pulse Resp BP Pulse Ox O2 Del Method 11/03/24 07:50 71 11/03/24 07:42 36.6 C 71 18 162/57 H 97 Room Air 11/03/24 02:51 80 180/67 H 11/03/24 02:03 Room Air 11/03/24 01:52 36.5 C 20 223/71 H 98 Room Air 11/03/24 01:22 66 Laboratory Results Abnormal lab results 11/03/24 11/03/24 11/03/24 Range/Units 01:54 06:10 07:50 WBC 3.29 L (4.8-10.8) K/ul RBC 3.22 L (4.20-5.40) M/uL Hgb 10.5 L (12.0-16.0) g/dl Hct 32.0 L (37.0-47.0) % RDW Std Deviation 50.4 H (36.4-46.3) fL Lymph # (Auto) 0.33 L (1.20-3.40) K/uL BUN 44 H (6-23) mg/dl Creatinine 7.55 H* (0.6-1.2) mg/dl BUN/Creatinine Ratio 5.8 L (10-20) Glucose 178 H (70-99(Fasting)) mg/dl POC Glucose 144 H 172 H (70-99) mg/dl Calcium 8.3 L (8.6-10.3) mg/dl C-Reactive Protein 0.89 H (0-0.5) mg/dl
[2024-11-03 10:42] LABS: Folate (Folic Acid),Ser orPlas > 22.30 ng/ml (>5.38)
[2024-11-03 10:43] LABS: Vitamin B12 561 pg/ml (180-914)
[2024-11-03] MEDS: HEPARIN SOD (PORCINE) 1000 UNIT/ML IV ONE (12:06)
[2024-11-03] MEDS: HEPARIN SOD (PORCINE) 1000 UNIT/ML IV SCH (12:06)
--- NOTE | 2024-11-03 13:37 | Pharmacy Report ---
Pharmacy Glycemic Short Note 2 - Date of Service November 03, 2024 - Glycemic Short BSG Results (Last 24 hours): 11/03/24 11/03/24 11/03/24 01:54 06:10 07:50 Glucose 178 H POC Glucose 144 H 172 H 11/03/24 12:26 Glucose POC Glucose 109 H OUTPATIENT ANTIDIABETIC REGIMEN: * Basaglar 44 units SQ HS * Humalog 30 units with breakfast and lunch HbA1c: 5.9% on 08/26/24 ASSESSMENT: * Arely is a 69 year old female who was admitted today for back pain/hypertensive urgency. PMH significant for ESRD with usual dialysis MWF and breast cancer s/p surgery/radiation. Pharmacy was consulted for glycemic management while she is admitted. * Fasting BSG was 172mg/dL this morning. She received 5 units of SQ Lantus and a weight based bolus insulin regimen with a stress between 2 and 3 was started. She was made NPO for possible procedure. * Lunchtime BSG was 109mg/dL today so CF was loosened to a stress of 2. * A Lantus scale depending on BSG was added at HS (max dose is half of her home dose due to NPO status). PLAN FOR INPATIENT GLYCEMIC CONTROL: * Hold outpatient diabetes medications * Basal insulin * Lantus 5 units SQ x 1 this morning then Lantus scale (0,10, or 20 units depending on BSG) at HS * Bolus insulin * NovoLog per scale ACHS or Q6hrs while NPO * Goal Range: Low 110 mg/dL - High 140 mg/dL * Correction Factor: 30 mg/dL/unit * Nutritional / Prandial insulin per carb ratio of 1 unit per 15 grams CHO consumed
[2024-11-03] MEDS ORDERED: INSULIN ASPART PER UNIT CHARGE SC SCH ×2 (16:43→18:00)
[2024-11-03] MEDS: VITAMIN B COMPLEX TAB PO SCH (20:09)
[2024-11-03] MEDS: ATORVASTATIN 40 MG TAB PO SCH (20:09)
[2024-11-03] MEDS: LANTUS PER UNIT CHARGE SC SCH (20:10)
[2024-11-03] MEDS: REMOVE NITRO-DUR PATCH SCH (20:10)
[2024-11-04] MEDS ORDERED: SODIUM CHLORIDE 0.9% 1,000 ML IV PRN (06:12)
[2024-11-04 07:43] LABS: Hematocrit (blood only) 29.4 % (37.0-47.0); Hemoglobin 9.3 g/dl (12.0-16.0); Mean Corpuscular Hemoglobin 31.5 pg (25.0-34.0); Mean Corpuscular Volume 99.7 fL (80.0-100.0); Platelet Count 118 K/uL (130-400); RDW Standard Deviation 51.9 fL (36.4-46.3); Red Blood Count 2.95 M/uL (4.20-5.40); White Blood Count 5.07 K/ul (4.8-10.8)
[2024-11-04 08:18] LABS: Anion Gap 7.0 (3-11); Blood Urea Nitrogen 19.0 mg/dl (6-23); Calcium 8.1 mg/dl (8.6-10.3); Carbon Dioxide 31.0 mmol/L (21-32); Chloride 100.0 mmol/L (98-107); Creatinine Clr Calc Pharmacy 11.5 ml/min; Glucose 110.0 mg/dl (70-99(Fasting)); Potassium 3.6 mmol/L (3.5-5.1); Sodium 138.0 mmol/L (136-145)
[2024-11-04] MEDS: HEPARIN SOD (PORCINE) 1000 UNIT/ML IV ONE (10:06)
[2024-11-04] MEDS: HEPARIN SOD (PORCINE) 1000 UNIT/ML IV SCH (10:06)
--- NOTE | 2024-11-04 10:32 | Consultation ---
Date of Consultation November 04, 2024 Assessment & Plan (1) Acute on chronic low back pain: I have reviewed outside imaging which includes an MRI of the lumbar spine from [facility] dated 11/02/[address] Hansen. She does have an acute inferior endplate compression fracture of L2 which would be consistent with any type of more acute back pain that she is having. She does have postoperative seroma but this is not causing significant compression on the thecal sac. Adjacent levels well-maintained. No evidence of infection. Due to her very limited mobility and ambulation I think she is a very poor candidate for bracing. I worry about skin breakdown due to her sedentary activity/ very limited ambulation currently. I would encourage physical therapy/Occupational Therapy and ambulate ad peggy. acute surgical intervention is not warranted at this point in time. Will likely need discharge to rehab facility after this hospital stay. History of Present Illness Attending Physician: Garcia Crocker MD History of Present Illness Arely is a 69-year-old female well-known to our practice. She is status post L3-5 decompression and instrumented fusion by Dr. Hansen on August 25, 2024. She was discharged to rehab. She ultimately had a 1 week hospital stay at [facility] due to AV fistula issues as well as anemia. She presents as a transfer from [facility] again. Has continued back pain per chart review. I have attempted 3 different times to see the patient over the last two days, but she has been out of the room each time, Therefore history is from chart review Allergies Allergy/AdvReac Type Severity Reaction Status Date / Time hydrocodone Allergy Unknown Nausea Verified 08/25/24 10:12 naproxen Allergy Unknown Nausea Verified 08/25/24 10:12 gabapentin AdvReac Intermediate Nausea Verified 08/25/24 10:12 ranolazine [From Ranexa] AdvReac Intermediate muscle Verified 11/03/24 08:02 spasm Home Medications Medication Instructions Recorded Confirmed Type atorvastatin 80 mg tablet (Lipitor) 80 mg PO HS 07/08/24 11/03/24 History brimonidine 0.15 % eye drops 1 drp OPR Q12H 07/08/24 11/03/24 History (Alphagan P) carvedilol 6.25 mg tablet 6.25 mg PO HS 07/08/24 11/03/24 History cholecalciferol (vitamin D3) 100 4,000 unit PO QPM 07/08/24 11/03/24 History mcg (4,000 unit) capsule clonidine HCl 0.1 mg tablet 0.1 mg PO HS 07/08/24 11/03/24 History clopidogrel 75 mg tablet (Plavix) 75 mg PO QAM 07/08/24 11/03/24 History furosemide 40 mg tablet (Lasix) 40 mg PO QAM 07/08/24 11/03/24 History hydralazine 25 mg tablet 25 mg PO HS 07/08/24 11/03/24 History insulin lispro 100 unit/mL 35 unit subcut BID 07/08/24 11/03/24 History subcutaneous pen (Humalog KwikPen (U-100) Insulin) lactulose 20 gram oral packet 30 g PO BID PRN Constipation 07/08/24 11/03/24 History nitroglycerin 0.4 mg sublingual 0.4 mg sublingual UD PRN Chest Pain 07/08/24 11/03/24 History tablet nitroglycerin 0.4 mg/hr 1 patch transdermal DAILY 07/08/24 11/03/24 History transdermal 24 hour patch sevelamer carbonate 800 mg tablet 2,400 mg PO TID 07/08/24 11/03/24 History vitamin B complex 1 cap PO HS 07/08/24 11/03/24 History aspirin 81 mg tablet 81 mg PO DAILY 08/25/24 11/03/24 History tramadol 50 mg tablet 50 mg PO Q6H PRN pain, moderate 08/26/24 11/03/24 Rx #30 tabs anastrozole 1 mg tablet 1 mg PO DAILY 11/03/24 11/03/24 History dorzolamide 2 % eye drops 1 drp OPR BID 11/03/24 11/03/24 History Patient History Medical History Aortic stenosis mild Potential difficult intubation on pre-intubation airway assessment limited cervical spine ROM, cervical spine MRI planned by Dr. Hansen/not yet scheduled Mitral regurgitation mild-moderate History of blood transfusion (~1979) miscarriage Tremor intermittent upper extremities when using arms to assist stand up-patient states Dr. Hansen plans to order cervical MRI for these symptoms. Denies change or worsening since seeing his clinic. Denies neck pain. CAD (coronary artery disease) CABG x 2 2006 and 1 stent in 2021 Hx of Clostridium difficile infection (2020) treated at [facility] Difficult intravenous access reports having IV's placed in feet in past Arthritis Spinal stenosis ESRD (end stage renal disease) on dialysis HD at [facility] in [place]- - follows with dr. calvin, neph in [place] Limb alert care status left- AV Fistula right- right breast lumpectomy and lymph node removal- states ok for BP on lower right arm and wants IV right hand or foot History of right breast cancer (2021) lumpectomy and xrt Hypertension controlled, stable per pt Diabetes mellitus IDDM Hx of colonic polyps Hemodialysis patient x 3 years, [facility] in [place]- - follows with dr. 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 martinez- ~ (1 month) Social History Smoking Status: Former smoker Tobacco Type: Cigarettes Second Hand Exposure: No; Do You Dip or Chew Tobacco: No; Tobacco Cessation Education Requested by Patient: No Hx Alcohol Use: No Hx Substance Use: No Preferred Language: Georgian Communication Ability: Effective [employer] Required: No Beliefs That Will Affect Care: None Current Living Situation: Family Other Information That Helps Us Care for You: No Feels Safe at Home: Yes Safety Concerns: Feels Safe At This Time Assistive Devices: Walker and Wheelchair Review of Systems Review of Systems: All systems reviewed & are unremarkable except as noted in HPI & below Physical Exam Physical Exam: Not performed Results & Data Vital Signs (Past 12 Hours) Vital Signs Temp Pulse Pulse Resp BP BP Pulse Ox 11/04/24 10:00 60 141/52 H 11/04/24 09:30 58 L 141/53 H 11/04/24 09:01 61 138/59 L 11/04/24 08:51 36.8 C 62 11/04/24 08:07 36.7 C 66 20 132/58 L 97 11/04/24 08:04 62 11/04/24 03:49 36.8 C 68 18 149/66 H 94 11/04/24 00:24 36.6 C 69 20 145/63 H 95 O2 Del Method 11/04/24 10:00 11/04/24 09:30 11/04/24 09:01 11/04/24 08:51 11/04/24 08:07 Room Air 11/04/24 08:04 11/04/24 03:49 Room Air 11/04/24 00:24 Room Air Diagnostic Findings [place], [place] [phone] XRay Report Patient: ARELY TAPIA Admit Date: 11/03/24 MR#: [id number] Address1: [address] [place] [address] Acct ID:[id number] Address2: Date: 1955 [facility] Zip: [place] [address] Age: 69 Location: Sex: F Room/Bed: [facility] Att Phy: Nicko Leyva DO Diagnosis: HTN URG, POST OP BACK PAIN Daylin Phy: Sonia Calvin M.D. Service Date: 11/03/24 Fam Phy: Interpreting Phy: West Baeza MDAit Phy: Rashaad Leblanc MD Ordering Phy: Dexter HansenDJanellOJanell cc: ~ XR lumbar spine 2-3V CLINICAL HISTORY: back pain COMPARISON STUDY: 08/25/2024 FINDINGS: There is prior kyphoplasty at L1. Posterior metallic fusion with interbody devices from L3 through L5 shows no hardware complication. No acute fracture or subluxation. Stable mild diffuse degenerative changes. IMPRESSION: No acute fracture seen. ACT 112: Negative or not required by law. Electronically signed by: West Baeza M.D. 11/03/2024 9:15 AM Dictated: 11/03/24913 Transcribed: 11/03/24913
[2024-11-04] MEDS: ACETAMINOPHEN 500 MG TAB PO PRN (11:31)
--- NOTE | 2024-11-04 12:00 | Hospitalist Progress Note ---
Date of Service November 04, 2024 Assessment & Plan (1) Anemia in ESRD (end-stage renal disease): (2) Two-level lumbosacral spondylosis with radiculopathy: (3) Asymptomatic hypertensive urgency: (4) CAD (coronary artery disease): (5) ESRD (end stage renal disease) on dialysis: (6) Diabetes mellitus: Plan 69F with PMH CAD status post CABG/stent, PVD, hypertension, hyperlipidemia, ESRD on HD (MWF), NAFLD cirrhosis, GERD, DM 2 insulin requiring, breast cancer status post surgery/radiation on Arimidex, giant cell arteritis as per records, LSS status post surgery ([facility], 08/2024), chronic anemia, anxiety/mood disorder, past tobacco abuse who presents with low back pain. #Acute on chronic LBP #Acute Inferior Endplate Compression Fracture L2 -Sent from [facility] for surgery evaluation due to worsening back pain -Hx Lumbar spondylosis with radiculopathy -S/p Lumbar decompression/fusion by Dr Hansen on 08/25 Plan Evaluated by orthospine; no plan for acute surgical intervention Continue pain control Continue PT OT eval #ESRD -HD MWF -Missed HD saturday due to being at [facility] -Nephrology consulted -HD as per Nephrology #IDDM -Current regimen: lantus 5 BID + SSI -Continue to adjust regimen as needed -Pharmacy consult for glycemic control #CAD s/p CABG + stenting -No chest pain. Follows with [facility] cardio in [place] -continue on aspirin and plavix -Continue statin, BB #HTN -Continue coreg, clonidine, hydralazine #Anemia -Likely secondary to ESRD -Borderline macrocytic -No s/s acute blood loss Full code DVT prophylaxis heparin Please note the above document was generated using voice recognition software. It may contain grammatical, syntax or spelling errors. Any formal questions or concerns about the content, text or information contained within the body of this dictation should be directly addressed to the provider for clarification Admission and Anticipated Discharge Date Admission Date: November 03, 2024 Subjective Patient seen and examined at bedside. She is undergoing dialysis; comfortable. She denies any dizziness, chest pain, shortness of breath. No pain in her lower back. Review of Systems Review of Systems: All systems reviewed & are unremarkable except as noted in Subjective Physical Exam Physical Exam: GENERAL: Comfortable, pleasant, obese, no respiratory distress CHEST : Decreased breath sounds, no tenderness HEART : RRR, systolic murmur murmurs ABDOMEN: soft, non-tender BACK : Low back tenderness, limited SLR left EXTREMITIES : Chronic bilateral LE swelling without tenderness, palpable pulses, no other conspicuous deformities noted NEUROLOGIC : Coherent, no facial asymmetry, no other gross focality Results & Data Results & Data Vital Signs (Past 12 Hours) Vital Signs Temp Pulse Pulse Resp BP BP Pulse Ox 11/04/24 11:30 61 122/53 L 11/04/24 11:00 60 128/51 L 11/04/24 10:30 68 126/54 L 11/04/24 10:00 60 141/52 H 11/04/24 09:30 58 L 141/53 H 11/04/24 09:01 61 138/59 L 11/04/24 08:51 36.8 C 62 11/04/24 08:07 36.7 C 66 20 132/58 L 97 11/04/24 08:04 62 11/04/24 03:49 36.8 C 68 18 149/66 H 94 11/04/24 00:24 36.6 C 69 20 145/63 H 95 O2 Del Method 11/04/24 11:30 11/04/24 11:00 11/04/24 10:30 11/04/24 10:00 11/04/24 09:30 11/04/24 09:01 11/04/24 08:51 11/04/24 08:07 Room Air 11/04/24 08:04 11/04/24 03:49 Room Air 11/04/24 00:24 Room Air
[2024-11-04] MEDS: HEPARIN SOD 5,000 UNIT/0.5 ML VIAL SQ SCH (14:17)
[2024-11-04] MEDS: ASPIRIN 81 MG ECTAB PO SCH (14:17)
[2024-11-04] MEDS: CLOPIDOGREL BISULFATE 75 MG TAB PO SCH (14:17)
--- NOTE | 2024-11-04 14:25 | Dialysis Progress Note ---
Date of Service November 04, 2024 Assessment & Plan (1) ESRD (end stage renal disease) on dialysis: Plan: For routine HD today using AVF > target 3.5 L fluid removal Next HD 11/06 as IP/OP per routine pain meds appropriate for ESRD continue binders when taking po > recommend also 1.5L FR which I have ordered (2) Asymptomatic hypertensive urgency: Plan: likely multifactorial d/t missed HD and uncontrolled pain; improved BP today -continue current meds > coreg; do note that hydralazine and clonidine are rather atypically dosed though this reflects OP documented meds >> will need to verify w/ pt that this is truly how she takes them -HD w/ target UF 3.5 L again today should also help HTN (3) Acute on chronic low back pain: Plan: with hx of falls x 2 and acute/subacute fracture on MRI > per ortho and primary service Admission and Anticipated Discharge Date Admission Date: November 03, 2024 Subjective has shakiness all 4 limbs but jose legs and pain in a band across low back; no sob; tolerating hd; per pt for more PT/conservative mgt Review of Systems 2 Review of Systems: All systems reviewed & are unremarkable except as noted in Subjective Physical Exam 2 Constitutional: well developed, well nourished, + obese and cooperative; no acute distress Eyes: EOM intact bilaterally ENMT: Mouth: + dry oral mucous membranes Respiratory: normal respiratory effort Auscultation: + diminished lung sounds Cardiovascular: Rate/Rhythm: regular rate and regular rhythm Heart Sounds: + murmur Extremities: + AV fistula (+t/b) Gastrointestinal (Abdomen): Inspection/Auscultation: normal bowel sounds P ercussion/Palpation: abdomen soft; abdomen nontender Musculoskeletal: Extremities: strength 5/5 throughout Skin: no rashes, warm and dry Results & Data Vital Signs (Past 12 Hours) Vital Signs Temp Pulse Pulse Resp BP BP Pulse Ox 11/04/24 13:05 36.7 C 59 L 144/54 H 11/04/24 12:30 60 123/51 L 11/04/24 12:00 58 L 132/53 L 11/04/24 11:30 61 122/53 L 11/04/24 11:00 60 128/51 L 11/04/24 10:30 68 126/54 L 11/04/24 10:00 60 141/52 H 11/04/24 09:30 58 L 141/53 H 11/04/24 09:01 61 138/59 L 11/04/24 08:51 36.8 C 62 11/04/24 08:07 36.7 C 66 20 132/58 L 97 11/04/24 08:04 62 11/04/24 03:49 36.8 C 68 18 149/66 H 94 O2 Del Method 11/04/24 13:05 11/04/24 12:30 11/04/24 12:00 11/04/24 11:30 11/04/24 11:00 11/04/24 10:30 11/04/24 10:00 11/04/24 09:30 11/04/24 09:01 11/04/24 08:51 11/04/24 08:07 Room Air 11/04/24 08:04 11/04/24 03:49 Room Air Laboratory Results 11/04/24 06:50 11/04/24 06:50
[2024-11-04 23:13] LABS: Hematocrit (blood only) 30.3 % (37.0-47.0); Hemoglobin 10.1 g/dl (12.0-16.0); Immature Granulocytes # (auto) 0.01 K/uL (0.01-0.20); Immature Granulocytes % (auto) 0.2 %; Mean Corpuscular Hemoglobin 33.1 pg (25.0-34.0); Mean Corpuscular Volume 99.3 fL (80.0-100.0); Platelet Count 132 K/uL (130-400); RDW Standard Deviation 50.4 fL (36.4-46.3); Red Blood Count 3.05 M/uL (4.20-5.40); White Blood Count 5.11 K/ul (4.8-10.8)
[2024-11-05 08:38] LABS: Anion Gap 8.0 (3-11); Blood Urea Nitrogen 18.0 mg/dl (6-23); Calcium 8.1 mg/dl (8.6-10.3); Carbon Dioxide 29.0 mmol/L (21-32); Chloride 99.0 mmol/L (98-107); Creatinine Clr Calc Pharmacy 13.7 ml/min; Glucose 110.0 mg/dl (70-99(Fasting)); Potassium 3.5 mmol/L (3.5-5.1); Sodium 136.0 mmol/L (136-145)
--- NOTE | 2024-11-05 09:24 | Nephrology Progress Note ---
Date of Service November 05, 2024 Assessment & Plan (1) ESRD (end stage renal disease) on dialysis: Plan: For routine HD tomorrow as IP/OP using AVF > would again target 3.5 L fluid removal which she has been tolerating. chemistries and vol status OK; 3 K Bath for AM for K 3.5 today; hgb 10 > no KHALIDA needed; -orders in for HD tomorrow -no indication to replete K pain meds appropriate for ESRD continue binders w/ meals per routine continue 1.5L FR which I have ordered care coordinated w/ Dr Crocker via [employer]Text re dialysis dispo, FR; we are in agreement. (2) Asymptomatic hypertensive urgency: Plan: RESOLVED; likely multifactorial d/t missed HD and uncontrolled pain; remains improved BP today after aggressive UF -continue current meds > coreg; do note that hydralazine and clonidine are rather atypically dosed though this reflects OP documented meds >> will need to verify w/ pt that this is truly how she takes them -HD w/ target UF 3.5 L again today should also help HTN (3) Acute on chronic low back pain: Plan: for conservative mgt; with hx of falls x 2 and acute/subacute fracture on MRI > per ortho and primary service Admission and Anticipated Discharge Date Admission Date: November 03, 2024 Subjective no acute interval events clinically. no sob, still w/ some LBP; no n/v; tolerated HD well yesterday no issues Review of Systems 2 Review of Systems: All systems reviewed & are unremarkable except as noted in Subjective Physical Exam 2 Constitutional: well developed, well nourished, + obese and cooperative; no acute distress Eyes: EOM intact bilaterally ENMT: Mouth: + dry oral mucous membranes Respiratory: normal respiratory effort Auscultation: + diminished lung sounds Cardiovascular: Rate/Rhythm: regular rate and regular rhythm Heart Sounds: + murmur Extremities: + AV fistula (+t/b) Gastrointestinal (Abdomen): Inspection/Auscultation: normal bowel sounds P ercussion/Palpation: abdomen soft; abdomen nontender Musculoskeletal: Extremities: strength 5/5 throughout Skin: no rashes, warm and dry Results & Data Vital Signs (Past 12 Hours) Vital Signs Temp Pulse Pulse Resp BP Pulse Ox O2 Del Method 11/05/24 02:18 36.8 C 65 16 113/66 95 Room Air 11/04/24 22:02 36.8 C 64 16 105/57 L 98 Room Air 11/04/24 21:44 62 Laboratory Results 11/04/24 22:48 11/05/24 07:17
--- NOTE | 2024-11-05 09:44 | Hospitalist Progress Note ---
Date of Service November 05, 2024 Assessment & Plan (1) Anemia in ESRD (end-stage renal disease): (2) Two-level lumbosacral spondylosis with radiculopathy: (3) Asymptomatic hypertensive urgency: (4) CAD (coronary artery disease): (5) ESRD (end stage renal disease) on dialysis: (6) Diabetes mellitus: Plan 69F with PMH CAD status post CABG/stent, PVD, hypertension, hyperlipidemia, ESRD on HD (MWF), NAFLD cirrhosis, GERD, DM 2 insulin requiring, breast cancer status post surgery/radiation on Arimidex, giant cell arteritis as per records, LSS status post surgery ([facility], 08/2024), chronic anemia, anxiety/mood disorder, past tobacco abuse who presents with low back pain. #Acute on chronic LBP #Acute Inferior Endplate Compression Fracture L2 -Sent from [facility] for surgery evaluation due to worsening back pain -Hx Lumbar spondylosis with radiculopathy -S/p Lumbar decompression/fusion by Dr Hansen on 08/25 Plan Evaluated by orthospine; no plan for acute surgical intervention Continue pain control Continue PT OT eval #ESRD -HD MWF -Missed HD saturday due to being at [facility] -Nephrology consulted -HD as per Nephrology #IDDM -Current regimen: lantus 5 BID + SSI -Continue to adjust regimen as needed -Pharmacy consult for glycemic control #CAD s/p CABG + stenting -No chest pain. Follows with [facility] cardio in [place] -continue on aspirin and plavix -Continue statin, BB #HTN -Continue coreg, clonidine, hydralazine #Anemia -Likely secondary to ESRD -Borderline macrocytic -No s/s acute blood loss Full code DVT prophylaxis heparin Please note the above document was generated using voice recognition software. It may contain grammatical, syntax or spelling errors. Any formal questions or concerns about the content, text or information contained within the body of this dictation should be directly addressed to the provider for clarification Admission and Anticipated Discharge Date Admission Date: November 03, 2024 Subjective Patient seen and examined at bedside. She is sitting up on a chair at the side of the bed comfortably; not in any distress. Reports that pain is well- controlled. Review of Systems Review of Systems: All systems reviewed & are unremarkable except as noted in Subjective Physical Exam Physical Exam: GENERAL: Comfortable, pleasant, obese, no respiratory distress CHEST : Decreased breath sounds, no tenderness HEART : RRR, systolic murmur murmurs ABDOMEN: soft, non-tender BACK : Low back tenderness, limited SLR left EXTREMITIES : Chronic bilateral LE swelling without tenderness, palpable pulses, no other conspicuous deformities noted NEUROLOGIC : Coherent, no facial asymmetry, no other gross focality Results & Data Results & Data Vital Signs (Past 12 Hours) Vital Signs Temp Pulse Pulse Resp BP Pulse Ox O2 Del Method 11/05/24 02:18 36.8 C 65 16 113/66 95 Room Air 11/04/24 22:02 36.8 C 64 16 105/57 L 98 Room Air 11/04/24 21:44 62
--- NOTE | 2024-11-05 13:01 | Pharmacy Report ---
Pharmacy Glycemic Short Note 2 - Date of Service November 05, 2024 - Glycemic Short BSG Results (Last 24 hours): 11/04/24 11/04/24 11/05/24 17:02 20:08 07:17 Glucose 110 H POC Glucose 154 H 87 11/05/24 11/05/24 08:13 12:23 Glucose POC Glucose 102 H 125 H OUTPATIENT ANTIDIABETIC REGIMEN: * Basaglar 44 units SQ HS * Humalog 30 units with breakfast and lunch HbA1c: 5.9% on 08/26/24 ASSESSMENT: 11/05: * Arely received 4 units of bolus insulin yesterday. * Fasting BSG this AM acceptable, will continue with a loose basal scale at bedtime if BSGs elevated. * Oral intake appears minimal per nursing documentation, will loosen carbohydrate ratio as well. 11/03: * Arely is a 69 year old female who was admitted today for back pain/hypertensive urgency. PMH significant for ESRD with usual dialysis MWF and breast cancer s/p surgery/radiation. Pharmacy was consulted for glycemic management while she is admitted. * Fasting BSG was 172mg/dL this morning. She received 5 units of SQ Lantus and a weight based bolus insulin regimen with a stress between 2 and 3 was started. She was made NPO for possible procedure. * Lunchtime BSG was 109mg/dL today so CF was loosened to a stress of 2. * A Lantus scale depending on BSG was added at HS (max dose is half of her home dose due to NPO status). PLAN FOR INPATIENT GLYCEMIC CONTROL: * Hold outpatient diabetes medications * Basal insulin * Lantus scale SQ HS (0,10, or 20 units depending on BSG) * Bolus insulin * NovoLog per scale ACHS or Q6hrs while NPO * Goal Range: Low 110 mg/dL - High 140 mg/dL * Correction Factor: 35 mg/dL/unit * Nutritional / Prandial insulin per carb ratio of 1 unit per 12 grams CHO consumed
--- NOTE | 2024-11-05 13:22 | Orthopedic Progress Note ---
Date of Service November 05, 2024 Assessment & Plan (1) Acute on chronic low back pain: Plan: She has an acute to subacute inferior endplate fracture of L2. Pain is very controlled with this. We are going to forego the brace at this time for fear of skin breakdown. Continue with physical therapy and Occupational Therapy. Ambulate ad peggy. No lifting over 5 to 10 pounds. She can follow-up in our office upon discharge. Will sign off no acute surgical intervention warranted Admission and Anticipated Discharge Date Admission Date: November 03, 2024 Subjective Patient notes her back is sore but not really painful. She sustained a fall several days ago while in dialysis hitting her head. She went to [facility] for out for evaluation and was subsequently transferred here. Prior to this she has been at home cruising around the furniture. She lives with her . She denies any lower extremity pain, paresthesia, numbness or weakness. Review of Systems Review of Systems: All systems reviewed & are unremarkable except as noted in HPI & below Physical Exam Physical Exam: She sitting in bed in no acute distress Alert and oriented x 3 She moves in bed with the ease for me. Lumbar incisions well-healed Nontender to palpation in precautions of the midline thoracic and lumbar spine Strength is intact bilateral lower extremities Results & Data Vital Signs (Past 12 Hours) Vital Signs Temp Pulse Resp BP Pulse Ox O2 Del Method 11/05/24 08:00 36.3 C L 61 16 121/47 L 99 Room Air 11/05/24 07:30 36.3 C L 61 16 121/47 L 99 Room Air 11/05/24 02:18 36.8 C 65 16 113/66 95 Room Air Queries Orthopedic Spine Obesity: Yes Vertebral Fracture Secondary to Osteoporosis: Yes Cauda Equina Syndrome: No
[2024-11-06 02:51] VITALS: RESP 18
[2024-11-06] MEDS ORDERED: SODIUM CHLORIDE 0.9% 1,000 ML IV PRN (07:00)
[2024-11-06 08:54] LABS: Anion Gap 8.0 (3-11); Blood Urea Nitrogen 34.0 mg/dl (6-23); Calcium 8.2 mg/dl (8.6-10.3); Carbon Dioxide 29.0 mmol/L (21-32); Chloride 98.0 mmol/L (98-107); Creatinine Clr Calc Pharmacy 8.6 ml/min; Glucose 126.0 mg/dl (70-99(Fasting)); Potassium 3.7 mmol/L (3.5-5.1); Sodium 135.0 mmol/L (136-145)
--- NOTE | 2024-11-06 10:57 | Dialysis Progress Note ---
Date of Service November 06, 2024 Assessment & Plan (1) Dialysis AV fistula malfunction: Plan: Soaked 4 x 2 inch square gauze pads in the first hour of treatment today due to oozing from around her fistula site. Has not received heparin today. Patient reports that this is happens at treatment and that she has been evaluated by Dr. Ruth her vascular surgeon who states there is no intervention required. coverer reviewed with her outpatient unit: They confirm this has happened in the past and generally resolves with cannulating at next treatment at a different site. Dr. Crocker aware Recommend hemoglobin stat 2 hours after treatment completed: So ordered; if hemoglobin greater than or equal to 8 she can be discharged; less than 7 will need transfusion; between 7 and 8 will need evaluation/dispo by hospitalist care coordinated w/ Dr Crocker in person re dialysis dispo, dialysis access malfunction/bleeding and follow-up plan; we are in agreement. (2) ESRD (end stage renal disease) on dialysis: Plan: For routine HD today using AVF > would again target 3.5 L fluid removal which she has been tolerating. chemistries and vol status OK; 3 K Bath for AM for K 3.7 today; hgb 10 on November 04 -no indication to replete K pain meds appropriate for ESRD continue binders w/ meals per routine continue 1.5L FR which I have ordered (3) Asymptomatic hypertensive urgency: Plan: RESOLVED; likely multifactorial d/t missed HD and uncontrolled pain; remains improved BP today after aggressive UF -continue current meds > coreg; do note that hydralazine and clonidine are rather atypically dosed though this reflects OP documented meds >> will need to verify w/ pt that this is truly how she takes them -HD w/ target UF 3.5 L again today should also help HTN (4) Acute on chronic low back pain: Plan: for conservative mgt; with hx of falls x 2 and acute/subacute fracture on MRI > per ortho and primary service Admission and Anticipated Discharge Date Admission Date: November 03, 2024 Subjective Seen and evaluated on dialysis. Tolerating treatment well. Has been cleared by PT for outpatient PT and looking forward to discharge. No shortness of breath; weakness has improved. No chest discomfort or focal numbness. Slow bleed from fistula as below Review of Systems 2 Review of Systems: All systems reviewed & are unremarkable except as noted in Subjective Physical Exam 2 Constitutional: well developed, well nourished, + obese and cooperative; no acute distress Eyes: EOM intact bilaterally ENMT: Mouth: + dry oral mucous membranes Respiratory: normal respiratory effort Auscultation: + diminished lung sounds Cardiovascular: Rate/Rhythm: regular rate and regular rhythm Heart Sounds: + murmur Extremities: + AV fistula (+t/b; slow ooze of blood from around needles on fistula) Gastrointestinal (Abdomen): Inspection/Auscultation: normal bowel sounds P ercussion/Palpation: abdomen soft; abdomen nontender Musculoskeletal: Extremities: strength 5/5 throughout Skin: no rashes, warm and dry Results & Data Vital Signs (Past 12 Hours) Vital Signs Temp Pulse Resp BP Pulse Ox O2 Del Method 11/06/24 08:02 36.6 C 59 L 18 151/65 H 97 Room Air 11/06/24 02:23 36.6 C 68 18 136/64 98 Room Air Laboratory Results 11/04/24 22:48 11/06/24 07:54
[2024-11-06] MEDS: HEPARIN SOD (PORCINE) 1000 UNIT/ML IV ONE (11:31)
[2024-11-06] MEDS: HEPARIN SOD (PORCINE) 1000 UNIT/ML IV SCH (11:32)
--- NOTE | 2024-11-06 11:42 | Discharge Summary ---
Date of Service November 06, 2024 Admission HPI Per Admitting Provider History obtained from patient and records. Medical history significant for CAD status post CABG/stent, PVD, hypertension, hyperlipidemia, ESRD on HD (MWF), NAFLD cirrhosis, GERD, DM 2 insulin requiring, breast cancer status post surgery/radiation on Arimidex, giant cell arteritis as per records, LSS status post surgery ([facility], 08/2024), chronic anemia, anxiety/mood disorder, past tobacco abuse. Last confinement August 2024 under Orthopedics spine service for lumbar radiculopathy status post decompression surgery. Hemoglobin 7.8 at time of discharge. Patient discharged to rehab before transitioning home. Patient noted low back pain going to the left left leg in the last week. No trauma, no fever, no chills. No incontinence symptoms. Pain worse on standing up. Patient consulted [facility] ER for evaluation yesterday. She missed outpatient dialysis because of pain. SBP 210s upon arrival at the ER as per ED provider. Patient denies headache, chest pain, SOB. Hemoglobin 11, hematocrit 36, WBC 4.8, platelets 184. Serum sodium 139, potassium 3.7, chloride 102, BUN 24, BUN 35, creatinine 6.87, glucose 118 CT abdomen pelvis showed nonspecific multinodular appearance left adrenal gland of certain significance. Fecal filled distended rectum. No abdominal or pelvic mass adenopathy or acute inflammatory change. Bilateral pleural effusions greater on the right side than the left. Postop changes lumbar spine without fracture. MRI lumbar spine showed postsurgical collection laminectomy bed showing improvement from September 04. High-grade canal stenosis at level L2-L3. No acute hardware complications detected by MRI technique. Acute/subacute fracture at the anterior inferior endplate of the L2 vertebral body. Morphology of fracture suggest insufficiency fracture. Patient sent to [facility] for direct admission after coordinating with patient's [facility] surgeon. SBP 220s upon arrival at the floor. Medical History as above Surgical History : CABG, cataract surgeries, cholecystectomy, KRISTEN, breast lumpectomy, fistula surgery, back surgery Family History : Colon cancer, DM, heart disease Personal/Social history : Past tobacco abuse, no EtOH intake, retired from factory work Admission Exam Per Admitting Provider GENERAL: Comfortable, pleasant, obese, no respiratory distress SKIN: Sallow, warm HEENT: Pale palpebral conjunctivae, no ptosis, dry buccal mucosa NECK : Supple, short neck, no tenderness CHEST : Decreased breath sounds, no tenderness HEART : RRR, systolic murmur murmurs ABDOMEN: Some distention, nontender BACK : Low back tenderness, limited SLR left EXTREMITIES : Chronic bilateral LE swelling without tenderness, palpable pulses, no other conspicuous deformities noted NEUROLOGIC : Coherent, no facial asymmetry, no other gross focality Principal Diagnosis #Acute on chronic LBP #Acute Inferior Endplate Compression Fracture L2 Discharge Exam GENERAL: Comfortable, pleasant, obese, no respiratory distress CHEST : Decreased breath sounds, no tenderness HEART : RRR, systolic murmur murmurs ABDOMEN: soft, non-tender BACK : Low back tenderness, limited SLR left EXTREMITIES : Chronic bilateral LE swelling without tenderness, palpable pulses, no other conspicuous deformities noted NEUROLOGIC : Coherent, no facial asymmetry, no other gross focality Discharge Data Allergies Allergy/AdvReac Type Severity Reaction Status Date / Time hydrocodone Allergy Unknown Nausea Verified 08/25/24 10:12 naproxen Allergy Unknown Nausea Verified 08/25/24 10:12 gabapentin AdvReac Intermediate Nausea Verified 08/25/24 10:12 ranolazine [From Ranexa] AdvReac Intermediate muscle Verified 11/03/24 08:02 spasm Consultations 11/03/24 03:14 Consult Nephrology Routine Consult Orthopedic Spine Surgery Routine Hospital Course (1) Anemia in ESRD (end-stage renal disease): (2) Two-level lumbosacral spondylosis with radiculopathy: (3) Asymptomatic hypertensive urgency: (4) CAD (coronary artery disease): (5) ESRD (end stage renal disease) on dialysis: (6) Diabetes mellitus: Plan 69F with PMH CAD status post CABG/stent, PVD, hypertension, hyperlipidemia, ESRD on HD (MWF), NAFLD cirrhosis, GERD, DM 2 insulin requiring, breast cancer status post surgery/radiation on Arimidex, giant cell arteritis as per records, LSS status post surgery ([facility], 08/2024), chronic anemia, anxiety/mood disorder, past tobacco abuse who presents with low back pain. #Acute on chronic LBP #Acute Inferior Endplate Compression Fracture L2 -Sent from [facility] for surgery evaluation due to worsening back pain -Hx Lumbar spondylosis with radiculopathy -S/p Lumbar decompression/fusion by Dr Hansen on 08/25 Evaluated by orthospine who reviewed the images; found to have acute inferior endplate compression fracture of L2. Patient was admitted to medical floor; Started on pain control, physical therapy. PT OT recommended home with home PT OT. However patient wanted to do outpatient physical therapy for which a prescription was provided. Patient to follow-up with PCP after discharge along with orthospine. #ESRD- Started on pain control, physical therapy. PT OT recommended home with home PT OT. However patient wanted to do outpatient physical therapy for which a prescription was provided. Patient to follow-up with PCP after discharge along with orthospine. Please note the above document was generated using voice recognition software. It may contain grammatical, syntax or spelling errors. Any formal questions or concerns about the content, text or information contained within the body of this dictation should be directly addressed to the provider for clarification Total Time Total Time Spent Total Time Spent (In Minutes): 34 Total Time Includes: Examination of the Patient, Discharge Planning, Medication Reconciliation, Communication With Other Providers and Other Discharge Plan Discharge Items Patient Disposition: Home - Self-Care Reason For Visit: HTN URG, POST OP BACK PAIN Discharge Diagnosis: #Acute on chronic LBP #Acute Inferior Endplate Compression Fracture L2 Activity: Resume your previous activity Non-emergency contact: Primary Care Provider Call non-emergency contact if: you have any medication questions and your symptoms worsen Follow-up/Referrals: Dexter Hansen DO [Surgeon] - Sonia Calvin M.D. [Primary Care Provider] - (The office will call you with a follow up appointment.) Diet: Regular Addtl Attending Provider Instructions: You were admitted to the hospital due to back pain. The images of the MRI was reviewed by Dr. Hansen; you are found to have compression fracture of L2. Do not lift over 5 to 10 pounds. Do not bend over. Take Tylenol for pain control. Follow-up with Dr. Hansen in the office. Pending Studies at Discharge: No Stand-Alone Forms: My [employer], Smoking Cessation Medications and DC Order Prescriptions: Continued furosemide [Lasix] 40 mg Tablet 40 mg PO QAM atorvastatin [Lipitor] 80 mg Tablet 80 mg PO HS clonidine HCl 0.1 mg Tablet 0.1 mg PO HS carvedilol 6.25 mg Tablet 6.25 mg PO HS Rx Instructions: must administer with a meal/food hydralazine 25 mg Tablet 25 mg PO HS clopidogrel [Plavix] 75 mg Tablet 75 mg PO QAM nitroglycerin 0.4 mg/hr Patch 24 Hour 1 patch TRANSDERMAL DAILY Rx Instructions: allow nitrate-free interval of approx. 10-12 hrs per 24-hour period nitroglycerin 0.4 mg Tablet, Sublingual 0.4 mg sublingual UD PRN (Reason: Chest Pain) lactulose 20 gram Packet 30 g PO BID PRN (Reason: Constipation) brimonidine [Alphagan P] 0.15 % Drops 1 drp OPR Q12H vitamin B complex Capsule 1 cap PO HS insulin lispro [Humalog KwikPen Insulin] 100 unit/mL Insulin Pen 35 unit SUBCUT BID Rx Instructions: with breakfast and lunch sevelamer carbonate 800 mg Tablet 2,400 mg PO TID Rx Instructions: must administer with a meal/food cholecalciferol (vitamin D3) 100 mcg (4,000 unit) Capsule 4,000 unit PO QPM aspirin 81 mg Tablet 81 mg PO DAILY tramadol 50 mg tablet 50 mg PO Q6H PRN (Reason: pain, moderate) Qty: 30 0RF dorzolamide 2 % drops 1 drp OPR BID anastrozole 1 mg tablet 1 mg PO DAILY Discharge Orders: Discharge Order (Routine); Ordered 11/06/24 Ordered By: Garcia Crocker Admission Data Admit Date/Time: 11/03/24 01:01 Attending Provider: Garcia Crocker Admit Provider: Rashaad Leblanc Primary Care Provider: Sonia Calvin Other Providers: Fatou South; Len Verdugo; Lynnette Roque Jawed; Cami Rivera; Dexter Hansen
[2024-11-06 14:07] VITALS: TEMP 97.9
[2024-11-06 14:09] VITALS: BP 123/71; PULSE 65; O2SAT 100
[2024-11-06 16:34] LABS: Hematocrit (blood only) 33.9 % (37.0-47.0); Hemoglobin 11.2 g/dl (12.0-16.0); Immature Granulocytes # (auto) 0.01 K/uL (0.01-0.20); Immature Granulocytes % (auto) 0.2 %; Mean Corpuscular Hemoglobin 32.3 pg (25.0-34.0); Mean Corpuscular Volume 97.7 fL (80.0-100.0); Platelet Count 177 K/uL (130-400); RDW Standard Deviation 47.2 fL (36.4-46.3); Red Blood Count 3.47 M/uL (4.20-5.40); White Blood Count 4.70 K/ul (4.8-10.8)
== END 2024-11-06 18:30 | disposition home or self-care (01) | DRG 542 ==
LOC: SUATTDRO 11-03 01:01 → 2N 11-03 01:24